=== PATIENT | male | born 1975 | race Caucasian/White ===

== ENCOUNTER 2023-06-06 07:56 | Outpatient (OUT) | payer BC, SELFPAY ==
[2023-06-06 08:16] LABS: Basophils Absolute Auto 0.1 10^3/uL (0.0-0.1); Basophils Percent Auto 0.7 % (0.2-2.0); Eosinophils Absolute Auto 0.1 10^3/uL (0.0-0.7); Eosinophils Percent Auto 1.2 % (0.9-7.0); Hemoglobin 14.3 g/dL (14.0-18.0); Immature Granulocytes Abs Auto 0.08 10^3/uL (0.00-0.03); Immature Granulocytes Pct Auto 0.7 % (0.0-0.5); Lymphocytes Absolute Auto 2.5 10^3/uL (1.2-3.8); Lymphocytes Percent Auto 20.8 % (20.5-60.0); Mean Corpuscular Hemoglobin 32.4 pg (25.9-34.0); Mean Platelet Volume 9.2 fL (9.5-13.5); Monocytes Absolute Auto 1.1 10^3/uL (0.3-0.8); Monocytes Percent Auto 9.1 % (1.7-12.0); Neutrophils Absolute Auto 8.2 10^3/uL (1.4-6.5); Neutrophils Percent Auto 67.5 % (43.0-75.0); Platelet Count 252 10^3/uL (150-450); Red Blood Count 4.42 10^6/uL (4.70-6.10); Red Cell Distribution Width 13.4 % (11.0-15.0); White Blood Count 12.1 10^3/uL (4.0-11.0)
[2023-06-06 08:57] LABS: Estimated Average Glucose 123 mg/dL; Glycohemoglobin A1C 5.9 % (4.5-6.2)
[2023-06-06 09:00] LABS: Amphetamine Screen Urine NEGATIVE (NEGATIVE); Barbiturates Screen Urine NEGATIVE (NEGATIVE); Benzodiazepines Screen Urine NEGATIVE (NEGATIVE); Buprenorphine Screen Urine NEGATIVE (NEGATIVE); Cannabinoid Screen Urine NEGATIVE (NEGATIVE); Cocaine Screen Urine NEGATIVE (NEGATIVE); Methadone Screen Urine NEGATIVE (NEGATIVE); Methamphetamines Screen Urine NEGATIVE (NEGATIVE); Opiate Screen Urine POSITIVE (NEGATIVE); Oxycodone Screen Urine NEGATIVE (NEGATIVE); Phencyclidine Screen Urine NEGATIVE (NEGATIVE); Tricyclic Antidepressant Urine NEGATIVE (NEGATIVE)
[2023-06-06 09:39] LABS: Prostate Specific Antigen Scrn 0.77 ng/mL (<=4.00)
[2023-06-06 09:46] LABS: Alanine Aminotransferase 71 U/L (16-63); Albumin Globulin Ratio 1.2; Albumin Level 3.6 g/dL (3.4-5.0); Alkaline Phosphatase 78 U/L (46-116); Aspartate Amino Transferase 36 U/L (15-37); BUN Creatinine Ratio 12.9; Bilirubin Total 1.3 mg/dL (0.2-1.0); Calcium 8.3 mg/dL (8.5-10.1); Carbon Dioxide 29.5 mmol/L (21.0-32.0); Chloride 102 mmol/L (98-107); Chol HDL Ratio 3.1; Cholesterol 122 mg/dL (<=200); Estimated GFR (African America >60 (>=60); Estimated GFR (Non-African Ame >60 (>=60); Free T3 3.53 pg/mL (2.18-3.98); Globulin 2.9 g/dL; Glucose 136 mg/dL (74-106); HDL Cholesterol 39 mg/dL (40-60); Potassium 3.5 mmol/L (3.5-5.1); Sodium 137 mmol/L (136-145); Thyroid Stimulating Hormone 1.994 uIU/mL (0.358-3.740); Total Protein 6.5 g/dL (6.4-8.2); Triglycerides 181 mg/dL (<=150); Uric Acid 5.6 mg/dL (3.5-7.2); VLDL CHOLESTEROL 36.2 mg/dL
[2023-06-13 17:08] LABS: Summary Report (Summary) FINAL (.)
== END 2023-06-06 07:57 | disposition home or self-care (01) ==
LOC: LAB 07:57
PROVIDERS: PCP Family Medicine; Visit Provider Family Medicine
DX: Z00.00 Encounter for general adult medical examination without abnormal findings (principal); E78.5 Hyperlipidemia, unspecified; R73.09 Other abnormal glucose; Z12.5 Encounter for screening for malignant neoplasm of prostate; Z12.12 Encounter for screening for malignant neoplasm of rectum; Z79.899 Other long term (current) drug therapy
CPT/HCPCS: 36415; 80053; 80061; 80307; 80326; 80331; 80334; 80337; 80338; 80341; 80344; 80346; 80348; 80353; 80354; 80355; 80357; 80358; 80359; 80360; 80361; 80364; 80365; 80366; 80367; 80368; 80370; 80371; 80372; 80373; 80377; 82570; 83036; 83525; 83992; 84436; 84443; 84481; 84550; 85025; G0103; G0328

== ENCOUNTER 2023-06-06 10:00 | Outpatient (REF) | payer BC, SELFPAY ==
[2023-06-07 13:51] LABS: Occult Blood Negative
== END 2023-06-06 10:01 | disposition home or self-care (01) ==
LOC: LAB 10:00
PROVIDERS: PCP Family Medicine; Visit Provider Family Medicine
DX: Z12.12 Encounter for screening for malignant neoplasm of rectum (principal)
CPT/HCPCS: G0328

== ENCOUNTER 2024-03-03 09:16 | Outpatient (OUT) | payer BC, SELFPAY ==
--- NOTE | 2024-03-03 | NM_ITS ---
Patient Name: LUPILLO GARCIA MR#: [id number] : 1975 Exam Date: 03/03/2024 Ordering Doctor: DR Terrell Pineda . RADIOLOGY REPORT PROCEDURE: NM KIA PERF SPECT REST STR COMPARISON: None. INDICATIONS: CHEST PAIN TECHNIQUE: Exam Description: Stress/Rest one day protocol gated SPECT Rest Imagin.5 mCi Tc-99m Cardiolite IV on 03/03/2024 Stress Imaging 30.8 mCi Tc-99m Cardiolite IV on 03/03/2024 Exercise Protocol: Brad Heart Rate (bpm): Rest: 73 Max: 146 PMHR: 85 Blood Pressure: Rest: 140/72 Max: 158/80 Exercise Time: Minutes: 6 Seconds: 14 Stage Reached: Stage: 2 Mets 7.0 Symptoms: Rest and peak stress ECG findings were pending and the exercise portion of the study was pending per attending physician Dr. PFEIFFER . For more details please see separate cardiac stress test report. FINDINGS: QUALITY OF STUDY: Good. PERFUSION DEFECT: None. LOCATION: N/A SIZE: N/A. SEVERITY: N/A. TYPE: N/A. WALL MOTION: Normal. LV SIZE: Enlarged; EDV 126 mL. TID / TCD: None; 1.1 LVEF: Abnormal. Calculated EF 51%. SUMMARY: Myocardial perfusion imaging study has ABNORMAL findings. CONCLUSION: 1. No reversible ischemia identified 2. Borderline dilatation of the left ventricle, EDV 126 milliliters 3. Left ventricular ejection fraction is low at 51% 4. Pending exercise test results Dictated by: Bryan Lew MD on 03/03/2024 at 12:52 Approved by: Bryan Lew MD on 03/03/2024 at 12:53
--- NOTE | 2024-03-03 10:41 | PC.NURSE ---
Nursing Note Cardiac Stress Test Reviewed: Medication, allergies and patient history reviewed. Stress Test: [ x] Patient tolerated stress test well. [ ] Patient unable to tolerate walking on treadmill. Switched to Lexiscan stress test. [ x] No chest pain noted per patient [ ] Chest pain that resolved prior to leaving stress lab. [ ] No dyspnea noted. [ x] Dyspnea that resolved prior to leaving stress lab. [ x Patient left stress lab asymptomatic and hemodynamically stable. [ ] Patient taken to the Emergency Room due to non-resolving symptoms following stress test. [ x] Patient achieved target heart rate. [ ] Patient unable to achieve target heart rate. [ ] Aminophylline administered as reversal agent to Lexiscan (Regadenoson). [ ] Nitro administered. Nursing Comments:
== END 2024-03-03 09:17 | disposition home or self-care (01) ==
LOC: NM 09:16
PROVIDERS: PCP Family Medicine; Visit Provider Family Medicine
DX: R07.9 Chest pain, unspecified (principal)
CPT/HCPCS: 78452; 93017; A9500

== ENCOUNTER 2024-03-23 08:45 | Outpatient (OUT) | payer BC, SELFPAY ==
[2024-03-23 08:53] LABS: Hemoglobin 14.6 g/dL (14.0-18.0)
--- NOTE | 2024-03-23 09:00 | RT_ITS ---
The Test Date: 2024-03-23 Pat Name: Joss Wang Department: Room: - Gender: Male Pillow Cleaner: Steffi Alcaraz RRT : 1975 Requested By: ARLYN WARD Order Number: [id number] Reading MD: Gerardo Ho Interpretive Statements Pulmonary function testing was completed according to ATS criteria. Findings were considered accurate and reproducible. No bronchodilator was administered due to normal spirometric values. Prior PFTs are unable to be reviewed due to software limitations. -FEV1/FVC: Normal @ 83% -FEV1: Normal @ 103% -FVC: Normal @ 97% Lung volumes by plethysmography: -RV: Reduced @ 48% -TLC: Normal @ 89% Diffusion capacity: -DLCO: Normal @ 84% when corrected for Hb 14.6g/dL Impressions: -Normal spirometry and diffusion capacity. Reduced RV and normal TLC can be seen in an obesity pattern. If asthma remains in the differential, may consider methacholine challenge testing. Clinical correlation required. Electronically Signed On 03-25-2024 16:41:06 EDT by Gerardo Ho
== END 2024-03-23 08:46 | disposition home or self-care (01) ==
LOC: CARD 08:45
PROVIDERS: PCP Family Medicine; Visit Provider Family Medicine
DX: R06.02 Shortness of breath (principal); R06.09 Other forms of dyspnea
CPT/HCPCS: 36415; 85018; 94010; 94726; 94729

== ENCOUNTER 2024-03-24 15:55 | Outpatient (OUT) | payer BC, SELFPAY ==
--- NOTE | 2024-03-24 15:57 | XR_ITS ---
The [address] [address] Patient Name: LUPILLO GARCIA MRN: [id number] date: 1975 Sex: M Assigned Patient Location: [facility] Current Patient Location: Accession/Order Number: [id number] Exam Date: 03/24/2024 16:03 Report Date: 03/26/2024 05:10 At the request of: ARLYN WARD Procedure: XR chest 2V EXAMINATION: XR chest 2V HISTORY: Chest Pain, Dyspnea COMPARISON: XR chest 01/16/2022 FINDINGS: LUNGS: No significant pulmonary parenchymal abnormalities. VASCULATURE: No increased pulmonary vasculature. PLEURA: No pneumothorax, effusion, or pleural thickening. CARDIAC: No cardiomegaly or cardiac silhouette abnormality. MEDIASTINUM: No visible mass or adenopathy. BONES: No fracture or visible bone lesion. OTHER: Negative. XR/XR chest 2V IMPRESSION: 1. No acute cardiopulmonary process or significant chronic changes. Stable chest. Electronically authenticated by: CHAU MURRELL Date: 03/26/2024 05:10
== END 2024-03-24 15:56 | disposition home or self-care (01) ==
LOC: RAD 15:55
PROVIDERS: PCP Family Medicine; Visit Provider Family Medicine
DX: R07.9 Chest pain, unspecified (principal); R06.00 Dyspnea, unspecified
CPT/HCPCS: 71046

== ENCOUNTER 2024-05-11 09:04 | Outpatient (OUT) | payer BC, SELFPAY ==
[2024-05-11 09:26] LABS: Basophils Absolute Auto 0.1 10^3/uL (0.0-0.1); Basophils Percent Auto 1.5 % (0.2-2.0); Eosinophils Absolute Auto 0.2 10^3/uL (0.0-0.7); Eosinophils Percent Auto 3.6 % (0.9-7.0); Hematocrit 40.6 % (42.0-54.0); Hemoglobin 13.9 g/dL (14.0-18.0); Immature Granulocytes Abs Auto 0.03 10^3/uL (0.00-0.03); Immature Granulocytes Pct Auto 0.4 % (0.0-0.5); Lymphocytes Absolute Auto 1.7 10^3/uL (1.2-3.8); Lymphocytes Percent Auto 25.4 % (20.5-60.0); Mean Corpuscular HGB Conc 34.2 g/dL (29.9-35.2); Mean Corpuscular Hemoglobin 32.3 pg (25.9-34.0); Mean Corpuscular Volume 94.2 fL (80.0-94.0); Mean Platelet Volume 9.8 fL (9.5-13.5); Monocytes Absolute Auto 0.8 10^3/uL (0.3-0.8); Monocytes Percent Auto 11.4 % (1.7-12.0); Neutrophils Absolute Auto 3.9 10^3/uL (1.4-6.5); Neutrophils Percent Auto 57.7 % (43.0-75.0); Platelet Count 249 10^3/uL (150-450); Red Blood Count 4.31 10^6/uL (4.70-6.10); Red Cell Distribution Width 12.4 % (11.0-15.0); White Blood Count 6.7 10^3/uL (4.0-11.0)
[2024-05-11 09:39] LABS: Estimated Average Glucose 123 mg/dL; Glycohemoglobin A1C 5.9 % (4.5-6.2)
[2024-05-11 10:44] LABS: Alanine Aminotransferase 72 U/L (16-63); Albumin Globulin Ratio 1.2; Albumin Level 3.4 g/dL (3.4-5.0); Alkaline Phosphatase 83 U/L (46-116); Aspartate Amino Transferase 32 U/L (15-37); BUN Creatinine Ratio 17.3; Bilirubin Total 0.7 mg/dL (0.2-1.0); Chloride 104 mmol/L (98-107); Chol HDL Ratio 3.2; Cholesterol 114 mg/dL (<=200); Estimated GFR (African America >60 (>=60); Estimated GFR (Non-African Ame >60 (>=60); Free T3 3.19 pg/mL (2.18-3.98); Globulin 2.9 g/dL; Glucose 136 mg/dL (74-106); HDL Cholesterol 36 mg/dL (40-60); Potassium 4.4 mmol/L (3.5-5.1); Sodium 139 mmol/L (136-145); Thyroid Stimulating Hormone 2.082 uIU/mL (0.358-3.740); Total Protein 6.3 g/dL (6.4-8.2); Triglycerides 135 mg/dL (<=150)
[2024-05-11 10:55] LABS: Anion Gap 12.3; Carbon Dioxide 27.1 mmol/L (21.0-32.0); Prostate Specific Antigen Scrn 0.68 ng/mL (<=4.00)
[2024-05-12 10:10] LABS: Insulin 42.4 uIU/mL (2.6-24.9)
== END 2024-05-11 09:05 | disposition home or self-care (01) ==
LOC: LAB 09:04
PROVIDERS: PCP Family Medicine; Visit Provider Family Medicine
DX: Z00.00 Encounter for general adult medical examination without abnormal findings (principal)
CPT/HCPCS: 36415; 80053; 80061; 83036; 83525; 84436; 84443; 84481; 85025; G0103; G0328

== ENCOUNTER 2024-05-12 17:03 | Outpatient (REF) | payer BC, SELFPAY ==
--- OUTSIDE RECORDS SUMMARY | 2024-05-12 17:14 | XMS_ITS | CCD ---
Author Organization [facility] Care Team Providers Care Manager Helpdesk Name Role Phone UNKNOWN, PROVIDER Admitting Unavailable HOY, ARLYN Referring Unavailable HOY, ARLYN Primary Care Unavailable UNKNOWN, PROVIDER Attending Unavailable Unavailable Primary Care Provider Unavailabl e HOY ., DR STODDARD Attending Unavailable HOY ., DR STODDARD Consulting Unavailable HOY ., DR STODDARD Primary Care Unavailable HOY ., DR STODDARD Admitting Unavailable HOY ., DR STODDARD Attending Unavailable HOY ., DR STODDARD Consulting Unavailable HOY ., DR STODDARD Primary Care Unavailable HOY ., DR STODDARD Admitting Unavailable HOY ., DR STODDARD Admitting Unavailable HOY ., DR STODDARD Attending Unavailable HOY ., DR STODDARD Consulting Unavailable HOY ., DR STODDARD Primary Care Unavailable HOY ., DR STODDARD Attending Unavailable HOY ., DR STODDARD Consulting Unavailable HOY ., DR STODDARD Primary Care Unavailable HOY ., DR STODDARD Admitting Unavailable HOY ., DR STODDARD Attending Unavailable HOY ., DR STODDARD Primary Care Unavailable HOY ., DR STODDARD Admitting Unavailable HOY ., DR STODDARD Consulting Unavailable HOY ., DR STODDARD Attending Unavailable HOY ., DR STODDARD Primary Care Unavailable HOY ., DR STODDARD Admitting Unavailable HOY ., DR STODDARD Consulting Unavailable HOY ., DR STODDARD Attending Unavailable HOY ., DR STODDARD Primary Care Unavailable HOY ., DR STODDARD Admitting Unavailable HOY ., DR STODDARD Consulting Unavailable HARDWICK, DR BUTCH [employer] Consulting Unavailable Allergies Allergy Classification Reported Allergen(s) Allergy Type Date of Onset Reaction(s) Facility Acetaminophen / oxyCODONE (1 source) Acetaminophen / oxyCODONE Drug Allergy 1 [facility] Repository Latex (1 source) Latex Substance Allergy 1 [facility] NSAIDs (1 source) Ketorolac Drug Allergy 1 [facility] Opioid Agonists (1 source) traMADol Drug Allergy 1 [facility] (4 sources) Acetaminophen / oxyCODONE; Translations: [Percocet] Drug Allergy 2 [facility] (3 sources) Latex Propensity to adverse reactions to drug 2 [facility] Work Phone: (3 sources) nickel sulfate Drug Allergy 2 [facility] (3 sources) traMADol Drug Allergy 2 [facility] (1 source) Ketorolac Drug Allergy 6 [facility] (1 source) Latex Drug allergy (disorder) 6 [facility] (1 source) Leucine Drug Allergy 6 [facility] (1 source) methylparaben Drug Allergy 6 [facility] Medications Current Medications Medication Drug Class(es) Dates Sig (Normalized) Sig (Original) acetaminophen 300 mg / codeine phosphate 30 mg oral tablet (3 sources) Opioid Agonist Start: 08-27-2013 take 1 tablet by mouth every four hours as needed for pain acetaminophen-cod eine (TYLENOL/CODEINE #3) 300-30 MG per tablet Indications: Kienb ck's disease of adults , Arthritis , Right arm pain Take 1 Tab by mouth every 4 hours as needed for Pain. 40 Tab 1 08/27/2013 Active amLODIPine 10 mg oral tablet (3 sources) Dihydropyridine Calcium Channel Jailyn Start: 01-14-2012 take 1 tablet by mouth once daily amLODIPine (NORVASC) 10 MG tablet Indications: Arthritis , Right arm pain Take 1 Tab by mouth daily. 30 Tab 3 01/14/2012 Active cetirizine hydrochloride 10 mg oral tablet (3 sources) Histamine-1 Receptor Antagonist Start: 01-14-2012 take 1 tablet by mouth once daily cetirizine (ZYRTEC) 10 MG tablet Indications: Arthritis , Right arm pain Take 1 Tab by mouth daily. 30 Tab 3 01/14/2012 Active esomeprazole 40 mg delayed release oral capsule (3 sources) Proton Pump Inhibitor Start: 01-14-2012 take 1 capsule by mouth once daily 30 minutes before breakfast esomeprazole (NEXIUM) 40 MG capsule Indications: Arthritis , Right arm pain Take 1 Cap by mouth daily (30 minutes before breakfast). 60 Cap 2 01/14/2012 Active hydrOXYzine pamoate 50 mg oral capsule (3 sources) Antihistamine Start: 06-01-2013 take 1 capsule by mouth three times daily as needed hydrOXYzine (VISTARIL) 50 MG capsule Indications: Kienb ck's disease of adults Take 1 Cap by mouth 3 times daily as needed for Itching. 90 Cap 3 06/01/2013 Active ibuprofen 800 mg oral tablet (3 sources) Nonsteroidal Anti-inflammatory Drug Start: 01-14-2012 take 1 tablet by mouth every eight hours as needed for pain ibuprofen (MOTRIN) 800 MG tablet Indications: Arthritis , Right arm pain Take 1 Tab by mouth every 8 hours as needed for Pain. 60 Tab 2 01/14/2012 Active Problems Active Problems Problem Classification Problem Date Documented Date Episodic/Chronic Congestive heart failure; nonhypertensive (1 source) Unspecified diastolic (congestive) heart failure; Translations: [UNSPECIFIED DIASTOLIC HEART FAILURE] Onset: 01-02-2023 Chronic Coronary atherosclerosis and other heart disease (4 sources) Atherosclerotic heart disease of [place] coronary artery without angina pectoris; Translations: [ASHD [place] CA W/O ANGINA PECTORIS] Onset: 12-27-2022 Chronic Deficiency and other anemia (1 source) Anemia, unspecified; Translations: [ANEMIA UNSPECIFIED] Onset: 01-02-2023 Episodic Diabetes mellitus without complication (1 source) Other abnormal glucose; Translations: [OTHER ABNORMAL GLUCOSE] Onset: 01-02-2023 Episodic Gout and other crystal arthropathies (1 source) Gout, unspecified; Translations: [GOUT UNSPECIFIED] Onset: 01-02-2023 Chronic Hypertension with complications and secondary hypertension (1 source) Hypertensive heart disease with heart failure; Translations: [HTN HEART DISEASE W/HEART FAIL] Onset: 01-02-2023 Chronic Nutritional deficiencies (1 source) Vitamin D deficiency, unspecified; Translations: [VITAMIN D DEFICIENCY UNSPECIFIED] Onset: 01-02-2023 Chronic Osteoarthritis (3 sources) Arthritis; Translations: [Unspecified osteoarthritis, unspecified site] Onset: 09-10-2012 09-10-2012 Chronic Other bone disease and musculoskeletal deformities (3 sources) Progressive avascular necrosis of lunate; 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] Onset: 04-14-2012 04-14-2012 Chronic Other lower respiratory disease (1 source) Dyspnea, unspecified; Translations: [DYSPNEA UNSPECIFIED] Onset: 01-02-2023 Episodic Unclassified (1 source) COUGH, UNSPECIFIED; Translations: [COUGH, UNSPECIFIED] Onset: 01-18-2022 Past or Other Problems Problem Classification Problem Date Documented Da te Episodic/Chronic Nonspecific chest pain (4 sources) Chest pain, unspecified; Translations: [CHEST PAIN UNSPECIFIED] Onset: 03-06-2022 Episodic Other connective tissue disease (3 sources) Pain in right arm; Translations: [Pain in right arm] Onset: 09-10-2012 09-10-2012 Episodic Other gastrointestinal disorders (4 sources) Abdominal distension (gaseous); Translations: [ABDOMINAL DISTENSION GASEOUS] Onset: 03-14-2022 Episodic Other injuries and conditions due to external causes (1 source) Other injury of unspecified body region, initial encounter; Translations: [OTHER INJURY UNS BODY REGION INIT] Onset: 03-14-2022 Episodic Other lower respiratory disease (4 sources) Shortness of breath; Translations: [SHORTNESS OF BREATH] Onset: 02-08-2022 Episodic Other non-traumatic joint disorders (3 sources) Pain of left wrist; Translations: [Pain in left wrist] Onset: 10-02-2013 10-02-2013 Episodic Other screening for suspected conditions (not mental disorders or infectious disease) (5 sources) Encounter for screening for malignant neoplasm of prostate; Translations: [Other specified abnormal findings of blood chemistry] Onset: 03-13-2022 Episodic Results Test Name Value Interpretation Reference Range Facility INSULINon 12-28-2022 Insulin 45.9 uIU/mL Critically high 2.6-24.9 [facility] Comment on above: Performed By: #### I NSULIN #### [facility] [address] [address] [address] Destinee Billingsley BNPon 12-27-2022 Natriuretic peptide B (Bld) [Mass/Vol] 158.0 pg/mL Normal <=900.0 [facility] Comment on above: Performed By: #### C MP, BNP #### [facility] [address] [address] [address] Destinee Billingsley CBC AUTO DIFFon 12-27-2022 BASO # 0.1 103/ul Normal 0.0-0.1 [facility] Comment on above: Performed By: #### C BC #### [facility] [address] [address] [address] Destinee Billingsley Basophils/100 WBC (Bld) 1.3 % Normal 0.2-2.0 [facility] Comment on above: Performed By: #### C BC #### [facility] [address] [place] [address] Dr. Destinee Billingsley EO # 0.2 103/ul Normal 0.0-0.7 [facility] Comment on above: Performed By: #### C BC #### [facility] [address] [place] [address] Dr. Destinee Billingsley Eosinophils/100 WBC (Bld) 3.1 % Normal 0.9-7.0 [facility] Comment on above: Performed By: #### C BC #### [facility] [address] [place] [address] Dr. Destinee Billingsley Erythrocyte distribution width (RBC) [Ratio] 12.8 % Normal 11.0-15.0 [facility] Comment on above: Performed By: #### C BC #### [facility] [address] [place] [address] Dr. Destniee Billingsley Hematocrit (Bld) [Volume fraction] 40.7 % Critically low 42.0-54.0 [facility] Comment on above: Performed By: #### C BC #### [facility] [address] [place] [address] Dr. Destinee Billingsley Hemoglobin (Bld) [Mass/Vol] 14.3 g/dL Normal 14.0-18.0 [facility] Comment on above: Performed By: #### C BC #### [facility] [address] [place] [address] Dr. Destinee Billingsley IG # 0.04 10e3/ul Critically high 0.00-0.03 [facility] Comment on above: Performed By: #### C BC #### [facility] [address] [place] [address] Dr. Destinee Billingsley IG % 0.5 % Normal 0.0-0.5 [facility] Comment on above: Performed By: #### C BC #### [facility] [address] [place] [address] Dr. Destinee Billingsley LYMPH # 1.7 103/ul Normal 1.2-3.8 [facility] Comment on above: Performed By: #### C BC #### [facility] [address] [place] [address] Dr. Destinee Billingsley Lymphocytes/100 WBC (Bld) 22.3 % Normal 20.5-60.0 [facility] Comment on above: Performed By: #### C BC #### [facility] [address] [place] [address] Dr. Destinee Billingsley MANUAL DIFF REQ NO Normal [facility] Comment on above: Performed By: #### C BC #### [facility] [address] [place] [address] Dr. Destinee Billingsley MCH (RBC) [Entitic mass] 32.6 pg Normal 25.9-34.0 [facility] Comment on above: Performed By: #### C BC #### [facility] [address] [place] [address] Dr. Destinee Billingsley MCHC (RBC) [Mass/Vol] 35.1 g/dL Normal 29.9-35.2 [facility] Comment on above: Performed By: #### C BC #### [facility] [address] [place] [address] Dr. Destinee Billingsley MCV (RBC) [Entitic vol] 92.9 fL Normal 80.0-94.0 [facility] Comment on above: Performed By: #### C BC #### [facility] [address] [place] [address] Dr. Destinee Billingsley MONO # 0.9 103/ul Critically high 0.3-0.8 [facility] Comment on above: Performed By: #### C BC #### [facility] [address] [place] [address] Dr. Destinee Billingsley Monocytes/100 WBC (Bld) 11.1 % Normal 1.7-12.0 [facility] Comment on above: Performed By: #### C BC #### [facility] [address] [place] [address] Dr. Destinee Billingsley NEUT # 4.7 103/ul Normal 1.4-6.5 [facility] Comment on above: Performed By: #### C BC #### [facility] [address] [place] [address] Dr. Destinee Billingsley Neutrophils/100 WBC (Bld) 61.7 % Normal 43.0-75.0 [facility] Comment on above: Performed By: #### C BC #### [facility] [address] [place] [address] Dr. Destinee Billingsley Platelet mean volume (Bld) [Entitic vol] 9.7 fL Normal 9.5-13.5 [facility] Comment on above: Performed By: #### C BC #### [facility] [address] [place] [address] Dr. Destinee Billingsley PLT 259 103/ul Normal 150-450 [facility] Comment on above: Performed By: #### C BC #### [facility] [address] [place] [address] Dr. Destinee Billingsley RBC 4.38 106/ul Critically low 4.70-6.10 [facility] Comment on above: Performed By: #### C BC #### [facility] [address] [place] [address] Dr. Destinee Billingsley WBC 7.7 103/ul Normal 4.0-11.0 [facility] Comment on above: Performed By: #### C BC #### [facility] [address] [place] [address] Dr. Destinee Billingsley FREE THYROXINE INDEX T7on FTI 2.40 Normal 1.30-4.50 [facility] Comment on above: Performed By: #### C MP, BNP #### [facility] [address] [place] [address] Dr. Destinee Billingsley T3U 32.0 % Critically low 33.0-40.0 [facility] Comment on above: Performed By: #### C MP, BNP #### [facility] [address] [place] [address] Dr. Destinee Billingsley T4 [Mass/Vol] 7.50 ug/dL Normal 4.50-12.10 [facility] Comment on above: Performed By: #### C MP, BNP #### [facility] [address] [place] [address] Dr. Destinee Billingsley GLYCOHEMOGLOBIN A1Con 2022 ADA RECOMMENDATION SEE BELOW Normal [facility] Comment on above: Result Comment: ADA RECOMMENDED LIMIT 4.0 - 6.0 ADA THERAPEUTIC TARGET < 7.0 ACTION SUGGESTED > 7.0 Performed By: #### A 1C #### [facility] [address] [place] [address] Dr. Destinee Billingsley Glucose [Mass/Vol] 148 mg/dL Critically high 74-106 T [facility] Comment on above: Performed By: #### A 1C #### [facility] [address] [place] [address] Dr. Destinee Billingsley Performed By: #### C MP, BNP #### [facility] [address] [place] [address] Dr. Destinee Billingsley HbA1c (Bld) [Mass fraction] 6.8 % Critically high 4.5-6.2 [facility] Comment on above: Performed By: #### A 1C #### [facility] [address] [place] [address] Dr. Destinee Billingsley IRONon 12-27-2022 Iron [Mass/Vol] 90.0 ug/dL Normal 65.0-175.0 [facility] Comment on above: Performed By: #### I NICOLA CARTER #### [facility] [address] [place] [address] Dr. Destinee Billingsley MAGNESIUMon 12-27-2022 Magnesium [Mass/Vol] 1.5 mg/dL Critically low 1.8-2.4 [facility] Comment on above: Performed By: #### C MP, BNP #### [facility] [address] [place] [address] Dr. Destinee Billingsley PROF 14(COMP METB)on 023 Albumin [Mass/Vol] 3.4 g/dL Normal 3.4-5.0 [facility] Comment on above: Performed By: #### C MP, BNP #### [facility] [address] [place] [address] Dr. Destinee Billingsley Albumin/Globulin [Mass ratio] 1.0 {ratio} Normal [facility] Comment on above: Performed By: #### C MP, BNP #### [facility] [address] [place] [address] Dr. Destinee Billingsley ALP [Catalytic activity/Vol] 86 U/L Normal 46-116 [facility] Comment on above: Performed By: #### C MP, BNP #### [facility] [address] [place] [address] Dr. Destinee Billingsley ALT [Catalytic activity/Vol] 61 U/L Normal 16-63 [facility] Comment on above: Performed By: #### C MP, BNP #### [facility] [address] [place] [address] Dr. Destinee Billingsley Anion gap [Moles/Vol] 13.5 mmol/L Normal [facility] Comment on above: Performed By: #### C MP, BNP #### [facility] [address] [place] [address] Dr. Destinee Billingsley AST [Catalytic activity/Vol] 41 U/L Critically high 15-37 [facility] Comment on above: Performed By: #### C MP, BNP #### [facility] [address] [place] [address] Dr. Destinee Billingsley Bilirubin [Mass/Vol] 0.6 mg/dL Normal 0.2-1.0 [facility] Comment on above: Performed By: #### C MP, BNP #### [facility] [address] [place] [address] Dr. Destinee Billingsley Calcium [Mass/Vol] 8.9 mg/dL Normal 8.5-10.1 [facility] Comment on above: Performed By: #### C MP, BNP #### [facility] [address] [place] [address] Dr. Destinee Billingsley Chloride [Moles/Vol] 104 mmol/L Normal 98-107 [facility] Comment on above: Performed By: #### C MP, BNP #### [facility] [address] [address] [address] Destinee Billingsley CO2 [Moles/Vol] 24.6 mmol/L Normal 21.0-32.0 [facility] Comment on above: Performed By: #### C MP, BNP #### [facility] [address] [place] [address] Dr. Destinee Billingsley Creatinine [Mass/Vol] 0.76 mg/dL Normal 0.70-1.30 [facility] Comment on above: Performed By: #### C MP, BNP #### [facility] [address] [place] [address] Dr. Destinee Billingsley EGFR-AF ENGLISH >60 Normal >=60 [facility] Comment on above: Performed By: #### C MP, BNP #### [facility] [address] [place] [address] Dr. Destinee Billingsley EGFR-NON AF ENGLISH >60 Normal >=60 [facility] Comment on above: Performed By: #### C MP, BNP #### [facility] [address] [place] [address] Dr. Destinee Billingsley Globulin (S) [Mass/Vol] 3.4 g/dL Normal [facility] Comment on above: Performed By: #### C MP, BNP #### [facility] [address] [place] [address] Dr. Destinee Billingsley Potassium [Moles/Vol] 4.1 mmol/L Normal 3.5-5.1 [facility] Comment on above: Performed By: #### C MP, BNP #### [facility] [address] [place] [address] Dr. Destinee Billingsley Protein [Mass/Vol] 6.8 g/dL Normal 6.4-8.2 [facility] Comment on above: Performed By: #### C MP, BNP #### [facility] [address] [place] [address] Dr. Destinee Billingsley Sodium [Moles/Vol] 138 mmol/L Normal 136-145 [facility] Comment on above: Performed By: #### C MP, BNP #### [facility] [address] [place] [address] Dr. Destinee Billingsley Urea nitrogen [Mass/Vol] 13.0 mg/dL Normal 7.0-18.0 [facility] Comment on above: Performed By: #### C MP, BNP #### [facility] [address] [place] [address] Dr. Destinee Billingsley Urea nitrogen/Creatinin e [Mass ratio] 17.1 mg/mg Normal [facility] Comment on above: Performed By: #### C JOAN, BNP #### [facility] [address] [place] [address] Dr. Destinee Billingsley TSHon 12-27-2022 TSH 1.711 uIU/mL Normal 0.358-3.740 [facility] Comment on above: Performed By: #### C JOAN, BNP #### [facility] [address] [place] [address] Dr. Destinee Billingsley VITAMIN D 25 OHon 12-27-2022 VIT D 25-OH 69.9 ng/mL Normal [facility] Comment on above: Performed By: #### I EMMA VITAD #### [facility] [address] [place] [address] Dr. Destinee Billingsley VIT D RANGES SEE BELOW Normal [facility] Comment on above: Result Comment: <20 ng/mL Vit D deficient 20 - <30 ng/mL Vit D insufficient 30 - 100 ng/mL Vit D sufficient >100 ng/mL Potential Toxicity Performed By: #### I EMMA VITAD #### [facility] [address] [place] [address] Dr. Destinee Billingsley INSULINon 05-05-2022 Insulin 46.3 uIU/mL Critically high 2.6-24.9 [facility] Comment on above: Performed By: #### C JOAN, BNP #### [facility] [address] [place] [address] Dr. Destinee Billingsley TESTOSTERONE, TOTALon 2021 Testosterone [Mass/Vol] 782 ng/dL Normal 264-916 [facility] Comment on above: Result Comment: Adul t male reference interval is based on a population of healthy nonobese males (BMI <30) between 19 and 39 years old. Porfirio et.al. JCEM 2017,102;[id number]. PMID: [id number]. Performed By: #### C MP, BNP #### [facility] [address] [place] [address] Dr. Destinee Billingsley CBC AUTO DIFFon 05-04-2022 BASO # 0.1 103/ul Normal 0.0-0.1 [facility] Comment on above: Performed By: #### C BC #### [facility] [address] [place] [address] Dr. Destinee Billingsley Basophils/100 WBC (Bld) 1.9 % Normal 0.2-2.0 [facility] Comment on above: Performed By: #### C BC #### [facility] [address] [place] [address] Dr. Destinee Billingsley EO # 0.2 103/ul Normal 0.0-0.7 [facility] Comment on above: Performed By: #### C BC #### [facility] [address] [place] [address] Dr. Destinee Billingsley Eosinophils/100 WBC (Bld) 3.3 % Normal 0.9-7.0 [facility] Comment on above: Performed By: #### C BC #### [facility] [address] [place] [address] Dr. Destinee Billingsley Erythrocyte distribution width (RBC) [Ratio] 12.2 % Normal 11.0-15.0 [facility] Comment on above: Performed By: #### C BC #### [facility] [address] [place] [address] Dr. Destinee Billingsley Hematocrit (Bld) [Volume fraction] 42.8 % Normal 42.0-54.0 [facility] Comment on above: Performed By: #### C BC #### [facility] [address] [place] [address] Dr. Destinee Billingsley Hemoglobin (Bld) [Mass/Vol] 14.6 g/dL Normal 14.0-18.0 [facility] Comment on above: Performed By: #### C BC #### [facility] [address] [place] [address] Dr. Destinee Billingsley IG # 0.02 10e3/ul Normal 0.00-0.03 [facility] Comment on above: Performed By: #### C BC #### [facility] [address] [place] [address] Dr. Destinee Billingsley IG % 0.3 % Normal 0.0-0.5 [facility] Comment on above: Performed By: #### C BC #### [facility] [address] [place] [address] Dr. Destinee Billingsley LYMPH # 1.7 103/ul Normal 1.2-3.8 [facility] Comment on above: Performed By: #### C BC #### [facility] [address] [place] [address] Dr. Destinee Billingsley Lymphocytes/100 WBC (Bld) 26.4 % Normal 20.5-60.0 [facility] Comment on above: Performed By: #### C BC #### [facility] [facility] [address] [place] [address] Dr. Destinee Billingsley MANUAL DIFF REQ NO Normal [facility] Comment on above: Performed By: #### C BC #### [facility] [address] [place] [address] Dr. Destinee Billingsley MCH (RBC) [Entitic mass] 32.4 pg Normal 25.9-34.0 [facility] Comment on above: Performed By: #### C BC #### [facility] [address] [place] [address] Dr. Destinee Billingsley MCHC (RBC) [Mass/Vol] 34.1 g/dL Normal 29.9-35.2 [facility] Comment on above: Performed By: #### C BC #### [facility] [address] [place] [address] Dr. Destinee Billingsley MCV (RBC) [Entitic vol] 94.9 fL Critically high 80.0-94.0 [facility] Comment on above: Performed By: #### C BC #### [facility] [address] [place] [address] Dr. Destinee Billingsley MONO # 0.7 103/ul Normal 0.3-0.8 [facility] Comment on above: Performed By: #### C BC #### [facility] [address] [address] [address] Destinee Billingsley Monocytes/100 WBC (Bld) 10.4 % Normal 1.7-12.0 [facility] Comment on above: Performed By: #### C BC #### [facility] [address] [place] [address] Dr. Destinee Billingsley NEUT # 3.6 103/ul Normal 1.4-6.5 [facility] Comment on above: Performed By: #### C BC #### [facility] [address] [place] [address] Dr. Destinee Billingsley Neutrophils/100 WBC (Bld) 57.7 % Normal 43.0-75.0 [facility] Comment on above: Performed By: #### C BC #### [facility] [address] [place] [address] Dr. Destinee Billingsley Platelet mean volume (Bld) [Entitic vol] 10.2 fL Normal 9.5-13.5 [facility] Comment on above: Performed By: #### C BC #### [facility] [address] [place] [address] Dr. Destinee Billingsley PLT 253 103/ul Normal 150-450 [facility] Comment on above: Performed By: #### C BC #### [facility] [address] [place] [address] Dr. Destinee Billingsley RBC 4.51 106/ul Critically low 4.70-6.10 [facility] Comment on above: Performed By: #### C BC #### [facility] [address] [place] [address] Dr. Destinee Billingsley WBC 6.3 103/ul Normal 4.0-11.0 [facility] Comment on above: Performed By: #### C BC #### [facility] [address] [address] [address] Destinee Billingsley GLYCOHEMOGLOBIN A1Con 2021 ADA RECOMMENDATION SEE BELOW Normal [facility] Comment on above: Result Comment: ADA RECOMMENDED LIMIT 4.0 - 6.0 ADA THERAPEUTIC TARGET < 7.0 ACTION SUGGESTED > 7.0 Performed By: #### A 1C #### [facility] [address] [place] [address] Dr. Destinee Billingsley Glucose [Mass/Vol] 131 mg/dL Normal [facility] Comment on above: Performed By: #### A 1C #### [facility] [address] [place] [address] Dr. Destinee Billingsley HbA1c (Bld) [Mass fraction] 6.2 % Normal 4.5-6.2 [facility] Comment on above: Performed By: #### A 1C #### [facility] [address] [place] [address] Dr. Destinee Billingsley LIPID PROFILEon 05-04-2022 CHOL-HDL RATIO NORM SEE BELOW Normal [facility] Comment on above: Result Comment: 3.3 - 4.4 LOW RISK 4.4 - 7.1 AVERAGE RISK 7.1 - 11.0 MODERATE RISK >11.0 HIGH RISK Performed By: #### C MP, BNP #### [facility] [address] [place] [address] Dr. Destinee Billingsley Cholesterol [Mass/Vol] 130 mg/dL Normal <=200 [facility] Comment on above: Performed By: #### C MP, BNP #### [facility] [address] [address] [address] Destinee Billingsley Cholesterol in HDL [Mass/Vol] 36 mg/dL Critically low 40-60 [facility] Comment on above: Performed By: #### C MP, BNP #### [facility] [address] [address] [address] Destinee Billingsley Cholesterol in LDL [Mass/Vol] 68.2 mg/dL Normal [facility] Comment on above: Performed By: #### C MP, BNP #### [facility] [address] [address] [address] Destinee Billingsley Cholesterol.total/ Cholesterol in HDL [Mass ratio] 3.6 {ratio} Normal [facility] Comment on above: Performed By: #### C MP, BNP #### [facility] [address] [address] [address] Destinee Billingsley HDL NORMAL > or = 60 mg/dl - LO W CARDIOVASCULAR RISK <40 mg/dl - HIGH CARDIOVASCULAR RISK Normal [facility] Comment on above: Performed By: #### C MP, BNP #### [facility] [address] [address] [address] Destinee Billingsley LDL CALC NORMAL SEE BELOW Normal [facility] Comment on above: Result Comment: <100 mg/dl OPTIMAL 100 - 129 mg/dl NEAR OR ABOVE OPTIMAL 130 - 159 mg/dl BORDERLINE HIGH 160 - 189 mg/dl HIGH >190 mg/dl VERY HIGH Performed By: #### C MP, BNP #### [facility] [address] [place] [address] Dr. Destinee Billingsley Triglyceride [Mass/Vol] 129 mg/dL Normal <=150 [facility] Comment on above: Performed By: #### C MP, BNP #### [facility] [address] [place] [address] Dr. Destinee Billingsley VLDL CALC 25.8 mg/dL Normal [facility] Comment on above: Performed By: #### C MP, BNP #### [facility] [address] [address] [address] Destinee Billingsley PROF 14(COMP METB)on 022 Albumin [Mass/Vol] 3.6 g/dL Normal 3.4-5.0 [facility] Comment on above: Performed By: #### C MP, BNP #### [facility] [address] [place] [address] Dr. Destinee Billingsley Albumin/Globulin [Mass ratio] 1.2 {ratio} Normal [facility] Comment on above: Performed By: #### C MP, BNP #### [facility] [address] [address] [address] Destinee Billingsley ALP [Catalytic activity/Vol] 87 U/L Normal 46-116 [facility] Comment on above: Performed By: #### C MP, BNP #### [facility] [address] [address] [address] Destinee Billingsley ALT [Catalytic activity/Vol] 86 U/L Critically high 16-63 [facility] Comment on above: Performed By: #### C MP, BNP #### [facility] [address] [address] [address] Destinee Billingsley Anion gap [Moles/Vol] 13.1 mmol/L Normal [facility] Comment on above: Performed By: #### C MP, BNP #### [facility] [address] [place] [address] Dr. Destinee Billingsley AST [Catalytic activity/Vol] 44 U/L Critically high 15-37 [facility] Comment on above: Performed By: #### C MP, BNP #### [facility] [address] [place] [address] Dr. Destinee Billingsley Bilirubin [Mass/Vol] 0.8 mg/dL Normal 0.2-1.0 [facility] Comment on above: Performed By: #### C MP, BNP #### [facility] [address] [place] [address] Dr. Destinee Billingsley Calcium [Mass/Vol] 9.1 mg/dL Normal 8.5-10.1 [facility] Comment on above: Performed By: #### C MP, BNP #### [facility] [address] [place] [address] Dr. Destinee Bililngsley Chloride [Moles/Vol] 104 mmol/L Normal 98-107 [facility] Comment on above: Performed By: #### C MP, BNP #### [facility] [address] [address] [address] Destinee Bililngsley CO2 [Moles/Vol] 28.1 mmol/L Normal 21.0-32.0 [facility] Comment on above: Performed By: #### C MP, BNP #### [facility] [address] [place] [address] Dr. Destinee Billingsley Creatinine [Mass/Vol] 0.91 mg/dL Normal 0.70-1.30 [facility] Comment on above: Performed By: #### C MP, BNP #### [facility] [address] [address] [address] Destinee Billingsley EGFR-AF ENGLISH >60 Normal >=60 [facility] Comment on above: Performed By: #### C MP, BNP #### [facility] [address] [place] [address] Dr. Destinee Billingsley EGFR-NON AF ENGLISH >60 Normal >=60 [facility] Comment on above: Performed By: #### C MP, BNP #### [facility] [address] [place] [address] Dr. Destinee Billinsgley Globulin (S) [Mass/Vol] 2.9 g/dL Normal [facility] Comment on above: Performed By: #### C MP, BNP #### [facility] [address] [place] [address] Dr. Destinee Billingsley Glucose [Mass/Vol] 138 mg/dL Critically high 74-106 [facility] Comment on above: Performed By: #### C MP, BNP #### [facility] [address] [place] [address] Dr. Destinee Billingsley Potassium [Moles/Vol] 4.2 mmol/L Normal 3.5-5.1 [facility] Comment on above: Performed By: #### C MP, BNP #### [facility] [address] [place] [address] Dr. Destinee Billingsley Protein [Mass/Vol] 6.5 g/dL Normal 6.4-8.2 [facility] Comment on above: Performed By: #### C MP, BNP #### [facility] [address] [place] [address] Dr. Destinee Billingsley Sodium [Moles/Vol] 141 mmol/L Normal 136-145 [facility] Comment on above: Performed By: #### C MP, BNP #### [facility] [address] [place] [address] Dr. Destinee Billingsley Urea nitrogen [Mass/Vol] 7.0 mg/dL Normal 7.0-18.0 [facility] Comment on above: Performed By: #### C MP, BNP #### [facility] [address] [place] [address] Dr. Destinee Billingsley Urea nitrogen/Creatinin e [Mass ratio] 7.7 mg/mg Normal [facility] Comment on above: Performed By: #### C MP, BNP #### [facility] [address] [place] [address] Dr. Destinee Billingsley URIC ACID SERUMon 05-04-2022 Urate [Mass/Vol] 8.7 mg/dL Critically high 3.5-7.2 [facility] Comment on above: Performed By: #### C MP, BNP #### [facility] [address] [place] [address] Dr. Destinee Billingsley CA 19-9on 03-15-2022 CA 19-9 6 U/mL Normal 0-35 [facility] Comment on above: Result Comment: Amitive Electrochemiluminescence Immunoassay (ECLIA) . Values obtained with different assay methods or kits cannot be used interchangeably. Results cannot be interpreted as absolute evidence of the presence or absence of malignant disease. Performed By: #### C MP, BNP #### [facility] [address] [place] [address] Dr. Destinee Billingsley H PYLORI ANTIBODY IGGon 02-24 H. PYLORI IGG ABS 0.32 Index Value Normal 0.00-0.79 [facility] Comment on above: Result Comment: Nega tive <0.80 Equivocal 0.80 - 0.89 Positive >0.89 Performed By: #### C MP, BNP #### [facility] [address] [place] [address] Dr. Destinee Billingsley AMMONIAon 03-14-2022 Ammonia (P) [Moles/Vol] 20 umol/L Normal 11-32 [facility] Comment on above: Performed By: #### A MM #### [facility] [address] [place] [address] Dr. Destinee Billingsley AMYLASEon 03-14-2022 Amylase [Catalytic activity/Vol] 37 U/L Normal 25-115 [facility] Comment on above: Result Comment: DISR EGARD VALUE / CALIBRATION NOT COMPLETED FOR THIS TEST Performed By: #### C MP, BNP #### [facility] [address] [place] [address] Dr. Destinee Billingsley LIPASEon 03-14-2022 Lipase [Catalytic activity/Vol] 91.0 U/L Normal 73.0-393.0 [facility] Comment on above: Performed By: #### C MP, BNP #### [facility] [address] [place] [address] Dr. Destinee Billingsley LYME DISEASE AB EIA W REFLEX on 03-14-2022 Lyme Total Antibody,EIA Negative Normal Negative [facility] Comment on above: Result Comment: Lyme Antibody Negative No laboratory evidence of infection with B. burgdorferi (Lyme disease). Negative results may occur in patients recently infected (greater than or equal to 14 days) with B. burgdorferi. If recent infection is suspected, repeat testing on a new sample collected in 7 to 14 days is recommended. Performed By: #### C MP, BNP #### [facility] [address] [place] [address] Dr. Destinee Billingsley PROF 14(COMP METB)on 022 Albumin [Mass/Vol] 3.6 g/dL Normal 3.4-5.0 [facility] Comment on above: Performed By: #### C MP, BNP #### [facility] [address] [place] [address] Dr. Destinee Billingsley Albumin/Globulin [Mass ratio] 1.3 {ratio} Normal [facility] Comment on above: Performed By: #### C MP, BNP #### [facility] [address] [place] [address] Dr. Destinee Billingsley ALP [Catalytic activity/Vol] 75 U/L Normal 46-116 [facility] Comment on above: Performed By: #### C MP, BNP #### [facility] [address] [place] [address] Dr. Destinee Billingsley ALT [Catalytic activity/Vol] 83 U/L Critically high 16-63 [facility] Comment on above: Performed By: #### C MP, BNP #### [facility] [address] [address] [address] Destinee Billingsley Anion gap [Moles/Vol] 13.2 mmol/L Normal [facility] Comment on above: Performed By: #### C MP, BNP #### [facility] [address] [address] [address] Destinee Billingsley AST [Catalytic activity/Vol] 51 U/L Critically high 15-37 [facility] Comment on above: Performed By: #### C MP, BNP #### [facility] [address] [address] [address] Destinee Billingsley Bilirubin [Mass/Vol] 1.0 mg/dL Normal 0.2-1.0 [facility] Comment on above: Performed By: #### C MP, BNP #### [facility] [address] [address] [address] Destinee Billingsley Calcium [Mass/Vol] 8.7 mg/dL Normal 8.5-10.1 [facility] Comment on above: Performed By: #### C MP, BNP #### [facility] [address] [address] [address] Destinee Billingsley Chloride [Moles/Vol] 110 mmol/L Critically high 98-107 [facility] Comment on above: Performed By: #### C MP, BNP #### [facility] [address] [address] [address] Destinee Billingsley CO2 [Moles/Vol] 24.3 mmol/L Normal 21.0-32.0 [facility] Comment on above: Performed By: #### C MP, BNP #### [facility] [address] [address] [address] Destinee Billignsley Creatinine [Mass/Vol] 0.89 mg/dL Normal 0.70-1.30 [facility] Comment on above: Performed By: #### C MP, BNP #### [facility] [address] [address] [address] Destinee Billingsley EGFR-AF ENGLISH >60 Normal >=60 [facility] Comment on above: Performed By: #### C MP, BNP #### [facility] [address] [address] [address] Destinee Billingsley EGFR-NON AF ENGLISH >60 Normal >=60 [facility] Comment on above: Performed By: #### C MP, BNP #### [facility] [address] [address] [address] Destinee Billingsley Globulin (S) [Mass/Vol] 2.7 g/dL Normal [facility] Comment on above: Performed By: #### C MP, BNP #### [facility] [address] [address] [address] Destinee Billingsley Glucose [Mass/Vol] 92 mg/dL Normal 74-106 [facility] Comment on above: Performed By: #### C MP, BNP #### [facility] [address] [address] [address] Destinee Billingsley Potassium [Moles/Vol] 3.5 mmol/L Normal 3.5-5.1 [facility] Comment on above: Performed By: #### C MP, BNP #### [facility] [address] [address] [address] Destinee Billingsley Protein [Mass/Vol] 6.3 g/dL Critically low 6.4-8.2 [facility] Comment on above: Performed By: #### C MP, BNP #### [facility] [address] [address] [address] Destinee Billingsley Sodium [Moles/Vol] 144 mmol/L Normal 136-145 [facility] Comment on above: Performed By: #### C MP, BNP #### [facility] [address] [address] [address] Destinee Billingsley Urea nitrogen [Mass/Vol] 10.0 mg/dL Normal 7.0-18.0 [facility] Comment on above: Performed By: #### C MP, BNP #### [facility] [address] [address] [address] Destinee Billingsley Urea nitrogen/Creatinin e [Mass ratio] 11.2 mg/mg Normal [facility] Comment on above: Performed By: #### C MP, BNP #### [facility] [address] [place] [address] Dr. Destinee Billingsley BNPon 03-06-2022 Natriuretic peptide B (Bld) [Mass/Vol] 272.0 pg/mL Normal <=450.0 [facility] Comment on above: Performed By: #### C MP, BNP #### [facility] [address] [place] [address] Dr. Destinee Billingsley PROF 14(COMP METB)on 022 Albumin [Mass/Vol] 3.5 g/dL Normal 3.4-5.0 [facility] Comment on above: Performed By: #### C MP, BNP #### [facility] [address] [place] [address] Dr. Destinee Billingsley Albumin/Globulin [Mass ratio] 1.2 {ratio} Normal [facility] Comment on above: Performed By: #### C MP, BNP #### [facility] [address] [place] [address] Dr. Destinee Billingsley ALP [Catalytic activity/Vol] 81 U/L Normal 46-116 [facility] Comment on above: Performed By: #### C MP, BNP #### [facility] [address] [place] [address] Dr. Destinee Billingsley ALT [Catalytic activity/Vol] 83 U/L Critically high 16-63 [facility] Comment on above: Performed By: #### C MP, BNP #### [facility] [address] [place] [address] Dr. Destinee Billingsley Anion gap [Moles/Vol] 12.2 mmol/L Normal [facility] Comment on above: Performed By: #### C MP, BNP #### [facility] [address] [place] [address] Dr. Destinee Billingsley AST [Catalytic activity/Vol] 44 U/L Critically high 15-37 [facility] Comment on above: Performed By: #### C MP, BNP #### [facility] [address] [place] [address] Dr. Destinee Billingsley Bilirubin [Mass/Vol] 0.8 mg/dL Normal 0.2-1.0 [facility] Comment on above: Performed By: #### C MP, BNP #### [facility] [address] [place] [address] Dr. Destinee Billingsley Calcium [Mass/Vol] 8.7 mg/dL Normal 8.5-10.1 [facility] Comment on above: Performed By: #### C MP, BNP #### [facility] [address] [place] [address] Dr. Destinee Billingsley Chloride [Moles/Vol] 106 mmol/L Normal 98-107 [facility] Comment on above: Performed By: #### C MP, BNP #### [facility] [address] [place] [address] Dr. Destinee Billingsley CO2 [Moles/Vol] 25.2 mmol/L Normal 21.0-32.0 [facility] Comment on above: Performed By: #### C MP, BNP #### [facility] [address] [place] [address] Dr. Destinee Billingsley Creatinine [Mass/Vol] 0.89 mg/dL Normal 0.70-1.30 [facility] Comment on above: Performed By: #### C MP, BNP #### [facility] [address] [place] [address] Dr. Destinee Billingsley EGFR-AF ENGLISH >60 Normal >=60 [facility] Comment on above: Performed By: #### C MP, BNP #### [facility] [address] [place] [address] Dr. Destinee Billingsley EGFR-NON AF ENGLISH >60 Normal >=60 [facility] Comment on above: Performed By: #### C MP, BNP #### [facility] [address] [place] [address] Dr. Destinee Billingsley Globulin (S) [Mass/Vol] 2.9 g/dL Normal [facility] Comment on above: Performed By: #### C MP, BNP #### [facility] [address] [place] [address] Dr. Destinee Billingsley Glucose [Mass/Vol] 120 mg/dL Critically high 74-106 [facility] Comment on above: Performed By: #### C MP, BNP #### [facility] [address] [place] [address] Dr. Destinee Billingsley Potassium [Moles/Vol] 3.4 mmol/L Critically low 3.5-5.1 [facility] Comment on above: Performed By: #### C MP, BNP #### [facility] [address] [place] [address] Dr. Destinee Billingsley Protein [Mass/Vol] 6.4 g/dL Normal 6.4-8.2 [facility] Comment on above: Performed By: #### C MP, BNP #### [facility] [address] [place] [address] Dr. Destinee Billingsley Sodium [Moles/Vol] 140 mmol/L Normal 136-145 [facility] Comment on above: Performed By: #### C MP, BNP #### [facility] [address] [place] [address] Dr. Destinee Billingsley Urea nitrogen [Mass/Vol] 14.0 mg/dL Normal 7.0-18.0 [facility] Comment on above: Performed By: #### C MP, BNP #### [facility] [address] [place] [address] Dr. Destinee Billingsley Urea nitrogen/Creatinin e [Mass ratio] 15.7 mg/mg Normal [facility] Comment on above: Performed By: #### C MP, BNP #### [facility] [address] [place] [address] Dr. Destinee Billingsley HEMOGLOBINon 02-08-2022 Hemoglobin (Bld) [Mass/Vol] 14.1 g/dL Normal 14.0-18.0 [facility] Comment on above: Performed By: #### C MP, BNP #### [facility] [address] [place] [address] Dr. Destinee Billingsley XR CHEST 2 Von 01-16-2022 XR CHEST 2 V EXAMINATION: XR CHES T 2 V HISTORY: Dyspnea COMPARISON: 12/13/2020 TECHNIQUE: PA and lateral FINDINGS: LUNGS: No significant pulmonary parenchymal abnormalities. VASCULATURE: No increased pulmonary vasculature. PLEURA: No pneumothorax, effusion, or pleural thickening. CARDIAC: No cardiomegaly or cardiac silhouette abnormality. MEDIASTINUM: No visible mass or adenopathy. BONES: No fracture or visible bone lesion. OTHER: Negative. IMPRESSION: No acute disease. Electronically authenticated by: BUTCH FUCHS Date: 2022-01-16 14:44 Normal [facility] Cardiovascular Lab Reporton 01-05-2021 Cardiovascular Lab Report [facility] Patient Name: Joss Wang [facility] MR #: [id number] Physician: Kiko Barr Department of [facility] Service Date: 01/05/2021 Division of Birthdate: 1975 Cardiology Room #: [facility] [address] [place] [address] Cardiovascular Laboratory Report INDICATION: The patient is a 45-year-old man, who was evaluated in Cardiology Clinic because of typical symptoms of angina. His echocardiogram showed mildly reduced left ventricular function with an ejection fraction of 45% to 60%. He was referred for cardiac catheterization. PROCEDURE: Bilateral selective coronary angiography from the left radial access. METHODS: Procedure was explained to the patient with risks and benefits. He signed informed consent. He was brought to clinical laboratory director in a fasting state. The left wrist area was prepped and draped in usual fashion. Modified Matthew's test was favorable. Access in the left radial artery was obtained using micropuncture technique. A 6-Kazakh x 11 cm hydrophilic sheath was advanced, verapamil was given through the sheath and heparin was administered intravenously. Bilateral selective coronary angiography was then performed using a 6-Kazakh JR4 diagnostic catheter for engagement of the right coronary artery following which intracoronary nitroglycerin was administered after the initial angiogram was obtained. Then the catheter was then exchanged over wire to a 6-Kazakh JL3.5 diagnostic catheter, which was used to engage the left coronary artery and then angiography was performed. Intracoronary nitroglycerin 100 mcg was administered followed by additional angiography. Catheter was removed. Procedure was concluded. A TR band was used for hemostasis in the left radial artery. He tolerated the procedure well. He will be observed for 3 hours and then discharged to home. TOTAL FLUORO TIME: 5.49 minutes. TOTAL AIR KERMA: 489 mGy. TOTAL CONTRAST VOLUME: 55 mL. HEMODYNAMICS: AO 121/75, mean 95. CORONARY ANGIOGRAPHY: This is a right dominant circulation. Left main: This arises from left coronary cusp. It bifurcates into left anterior descending and circumflex vessels. Left main is free of disease. Left anterior descending: This is a large vessel that tapers in its mid to distal segments it has no disease. After administration of intracoronary nitroglycerin, the caliber of the vessel was larger. Circumflex vessel: This arises normally and is a nondominant vessel. It is a large artery with no angiographic disease. Right coronary artery: This arises from the right coronary cusp. It is a large and dominant vessel. There was catheter induced spasm in the proximal segment that was reduced by administration of intracoronary nitroglycerin. The mid segment has mild disease. The distal segment appears angiographically normal. SUMMARY OF FINDINGS: 1. Mild coronary artery disease involving the mid right coronary artery. 2. Catheter-induced spasm in the proximal right coronary artery, resolved after administration of intracoronary nitroglycerin. 3. Small caliber LAD with no atherosclerotic disease. The caliber of the LAD improved after administration of intracoronary nitroglycerin. 4. Angiographically normal circumflex vessel. RECOMMENDATIONS: Continue medical therapy and consider addition of nitrates therapy if the patient continues to have symptoms of angina. The patient will be referred to cardiac rehab. Electronically Signed by: Kiko Drummond M.D. 01/08/2021 09:10 A Kiok Drummond M.D. Date Dict: 01/05/2021/04:23 P/Kiko Drummond M.D. Date Trans: 01/05/2021 04:52 P/lily [id number] cc: Arlyn Ward M.D. [address] [place] [address] [facility] Encounters Encounter Date Encounter Type Care Provider Facility Start: 12-29-2023 Letter encounter [facility] Start: 09-22-2023 Letter encounter [facility] Start: 12-27-2022 End: 12-28-[address] ARLYN WARD . Facility: Start: 12-23-2022 Letter encounter [facility] Start: 05-11-2022 Encounter for genera l adult medical examination without abnormal findings DR ARLYN WARD . [facility] Start: 05-04-2022 End: 05-05-[address] ARLYN WARD . Facility: Start: 05-04-2022 End: 05-05-2022 Encounter for general adult medical examination without abnormal findings DR ARLYN WARD . Facility:[facility] Start: 03-14-2022 End: 03-15-[address] ARLYN WARD . Facility:[facility] Start: 03-13-2022 End: 03-14-[address] ARLYN WARD . Facility:[facility] Start: 03-06-2022 End: 03-07-[address] ARLYN WARD . Facility:[facility] Start: 02-08-2022 End: 02-09-[address] ARLYN WARD . Facility:[facility] Start: 01-16-2022 End: 01-17-[address] ARLYN WARD . Facility: Start: 01-05-2021 End: 01-06-2021 ambulatory PROVIDER UNKNOWN Facility:[facility] Procedures Date Procedure Procedure Detail Performing Clinician Start: 05-04-[address] ZACHARY WARD . Comment on above: Performed By: #### C MP, BNP #### [facility] [address] [place] [address] Dr. Destinee Billingsley Plan of Treatment Date Care Activity Detail Author Start: 04-26-2023 Influenza vaccination Influenza Vacc ine (#1) [facility] Start: 2023 Shingles (RZV) Vacci ne (1 of 2) Shingles (RZV) Vaccine (1 of 2) [facility] Start: 2018 Screening for malign ant neoplasm of colon [facility] Start: 2008 Lipid panel Ch[facility] Start: 1992 Hepatitis A (HAV) Va ccine (optional start 19+ years) Hepatitis A (HAV) Vaccine (optional start 19+ years) [facility] Start: 1991 Hepatitis C screening Hepatitis C An [facility] Start: 1991 Tetanus + diphtheria + acellular pertussis vaccine (product) Tdap Booster [facility] Start: 1988 HIV screening HIV Test [facility] Start: 1973 COVID-19 Vaccine (#1) COVID-19 Vacci ne (#1) [facility] Start: 1973 Hepatitis B vaccination Hepati tis B (HBV) Vaccine (1 of 3 - [facility] Start: [facility] Screening for malign ant neoplasm of colon Colonoscopy [facility] Payers Date Payer Category Payer Unknown ANTHEM -BLUE [employer] TRADITIONAL ANTHEM /BLUE CROSS TRADITIONAL [id number] 2012-Present P Sanjiv REYES [id number] [place] [address] Indemnity [id number] 1973 Unknown [id number] 7 1973 Unknown [id number] 3 1973 Unknown [id number] 3 1973 Unknown [id number] 3 1973 Unknown [id number] 3 1973 Unknown [id number] 3 1973 Unknown [id number] 3 1973 Unknown [id number] 3 1959 Unknown [id number] Social History Date Type Detail Facility Start: 07-15-2012 Tobacco smoking status NHIS Smokes t obacco daily [facility] History of tobacco use [facility] Start: 07-15-2012 Cigarettes smoked cu rrent (pack per day) - Reported 1 [facility] Start: 07-15-2012 Tobacco use and exposure Smokeless t obacco non-user [facility] Start: 05-28-2014 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) [facility] Start: 1973 Sex Assigned At Not on file [facility] Gender identity Not on file [facility] Summary Purpose Family History No Family History Records FoundNo Family History Records Found Advance Directives No Advanced Directives Records FoundNo Advanced Directives Records Found Additional Source Comments (unrecognized sect ion and content) No Status Records FoundNo Status Records Found INFORMATION SOURCE (unrecogn ized section and content) DATE CREATED AUTHOR 01/16/2021 [facility] DATE CREATED AUTHOR AUTHOR'S ORGANIZ ATION 01/03/2023 [facility] FOR RECORDS PERTAINING TO PATIENTS WHO ARE OR HAVE BEEN ENROLLED IN A CHEMICAL DEPENDENCY/SUBSTANCEABUSE PROGRAM, SOME INFORMATION MAY BE OMITTED. This clinical summary was aggregated from multiple sources. Caution should be exercised in using it in the provision of clinical care. This summary normalizes information from multiple sources, and as a consequence, information in this document may materially change the coding, format and clinical context of patient data. In addition, data may be omitted in some cases. CLINICAL DECISIONS SHOULD BE BASED ON THE PRIMARY CLINICAL RECORDS. [facility] [employer] [facility]. provides no warranty or guarantee of the accuracy or completeness of information in this document.
[2024-05-12 18:30] LABS: Internal Control Within Normal Limits; Occult Blood Positive
== END 2024-05-12 17:04 | disposition home or self-care (01) ==
LOC: LAB 17:03
PROVIDERS: PCP Family Medicine; Visit Provider Family Medicine
DX: Z00.00 Encounter for general adult medical examination without abnormal findings (principal); R05.1 Acute cough
CPT/HCPCS: 87070; G0328

== ENCOUNTER 2024-05-26 14:54 | Outpatient (OUT) | payer BC, SELFPAY ==
--- OUTSIDE RECORDS SUMMARY | 2024-05-26 15:04 | XMS_ITS | CCD ---
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 Role Phone UNKNOWN, PROVIDER Admitting Unavailable ARLYN PINEDA Referring Unavailable ARLYN PINEDA Primary Care Unavailable UNKNOWN, PROVIDER Attending Unavailable Unavailable Primary Care Provider Unavailabl e CHRISTAY ., DR STODDARD Attending Unavailable HOY ., [...] Unavailable HOY ., DR STODDARD Consulting Unavailable RIVERSIDE, DR BUTCH Corcoran Consulting Unavailable Christay Arlyn Primary Care Physician Lupillo SHINE Attending Unavailable Arlyn Pineda Referring Unavailable Allergies Allergy Classification Reported Allergen(s) Allergy Type Date of Onset Reaction(s) Facility Acetaminophen / oxyCODONE (1 source) Acetaminophen / oxyCODONE Drug Allergy 01-06-20 [facility] Latex (1 source) Latex Substance Allergy 01-06-20 [facility] NSAIDs (1 source) Ketorolac Drug Allergy 01-06-20 [facility] Opioid Agonists (1 source) traMADol Drug Allergy 01-06-20 21 [facility] (4 sources) Acetaminophen / oxyCODONE; Translations: [Percocet] Drug Allergy 01-14-20 12 [facility] (5 sources) Latex; Translations: [Latex] Propensity to adverse reactions to drug 01-14-20 12 Blister (morphologic abnormality) [facility] Work Phone: (5 sources) nickel sulfate; Translations: [Nickel] Drug Allergy 01-14-20 12 Blister (morphologic abnormality) [facility] (3 sources) traMADol Drug Allergy 01-14-20 12 [facility] (1 source) Ketorolac Drug Allergy 11-09-19 16 [facility] (1 source) Latex Drug allergy (disorder) 11-02-19 16 [facility] (1 source) Leucine Drug Allergy 11-09-19 16 [facility] (1 source) methylparaben Drug Allergy 11-18-19 16 [facility] (2 sources) Ketorolac; Translations: [ketorolac] Drug Allergy Patient reported problems (finding) [facility] (2 sources) Meperidine; Translations: [meperidine] Drug Allergy Patient reported problems (finding) [facility] Medications Current Medications Medication Drug Class(es) Dates [...] for Pain. 40 Tab 1 08/27/2013 Active acetaminophen 325 mg / HYDROcodone bitartrate 5 mg oral tablet (1 source) Opioid Agonist Start: 05-18-2024 take 1 tablet by mouth four times daily as needed for pain acetaminophen-hyd rocodone 325 mg-5 mg oral tablet 1 tab(s), Oral, QID as needed for pain, Refill(s) 0 Start Date: 05/18/24 Status: Ordered allopurinol 100 mg oral tablet (1 source) Xanthine Oxidase Inhibitor Start: 05-18-2024 take 1 tablet by mouth once daily allopurinol 100 mg Tab 100 mg = 1 tab(s), Oral, Daily, Refills(s) 0 Start Date: 05/18/24 Status: Ordered amLODIPine 10 mg oral tablet (3 sources) Dihydropyridine Calcium Channel Jailyn Start: 01-14-2012 take 1 tablet by mouth once daily amLODIPine (NORVASC) 10 MG tablet Indications: Arthritis , Right arm pain Take 1 Tab by mouth daily. 30 Tab 3 01/14/2012 Active aspirin 81 mg delayed release oral tablet (1 source) Platelet Aggregation Inhibitor, Nonsteroidal Anti-inflammatory Drug Start: 05-18-2024 take 1 tablet by mouth once daily aspirin 81 mg Oral EC Tab 81 mg = 1 tab(s), Oral, Daily, Refills(s) 0 Start Date: 05/18/24 Status: Ordered atorvastatin 40 mg oral tablet (1 source) HMG-CoA Reductase Inhibitor Start: 05-18-2024 take 1 tablet by mouth once daily atorvastatin 40 mg Tab 40 mg = 1 tab(s), Oral, Daily, Refills(s) 0 Start Date: 05/18/24 Status: Ordered cetirizine hydrochloride 10 mg oral tablet (4 sources) Histamine-1 Receptor Antagonist Start: 05-18-2024 take 1 tablet by mouth once daily cetirizine 10 mg Tab 10 mg = 1 tab(s), Oral, Daily, Refills(s) 0 Start Date: 05/18/24 Status: Ordered Start: 01-14-2012 take 1 tablet by len th once daily cetirizine (ZYRTEC) 10 MG tablet Indications: Arthritis , Right arm pain Take 1 Tab by mouth daily. 30 Tab 3 01/14/2012 Active 2 ml dupilumab 150 mg/ml auto-injector (1 source) Interleukin-4 Receptor alpha Antagonist Start: 05-18-2024 inject 300 mg by subcutaneous injection every other week Dupixent Pre-filled Pen 300 mg/2 mL subcutaneous solution 300 mg, SubCutaneous, q2wk, Refills(s) 0 Start Date: 05/18/24 Status: Ordered esomeprazole 40 mg delayed release oral capsule (4 sources) Proton Pump Inhibitor Start: 12-21-2010 take 1 capsule by mouth once daily [...] for Pain. 60 Tab 2 01/14/2012 Active irbesartan 150 mg oral tablet (1 source) Angiotensin 2 Receptor Jailyn Start: 05-18-2024 take 1 tablet by mouth once daily irbesartan 150 mg Tab 150 mg = 1 tab(s), Oral, Daily, Refills(s) 0 Start Date: 05/18/24 Status: Ordered metFORMIN hydrochloride 500 mg oral tablet (1 source) Biguanide Start: 05-18-2024 metformin 500 mg Tab 250 mg = 0.5 tab(s), Oral, BID, Refills(s) 0 Start Date: 05/18/24 Status: Ordered 24 hr metoprolol succinate 50 mg extended release oral tablet (1 source) beta-Adrenergic Jailyn Start: 05-18-2024 take 1 tablet by mouth once daily metoprolol succinate 50 mg ER Tab 50 mg = 1 tab(s), Oral, Daily, Refills(s) 0 Start Date: 05/18/24 Status: Ordered montelukast 10 mg oral tablet (1 source) Leukotriene Receptor Antagonist Start: 05-18-2024 take 1 tablet by mouth once daily Singulair 10 mg Tab 10 mg = 1 tab(s), Oral, Daily, Refills(s) 0 Start Date: 05/18/24 Status: Ordered Multi Vitamins oral tablet (1 source) Start: 05-18-2024 take 1 tablet by mouth once daily Multi Vitamins oral tablet 1 tab(s), Oral, Daily, Refill(s) 0 Start Date: 05/18/24 Status: Ordered Ventolin HFA 90 mcg/inh Aerosol-Adpt (1 source) Start: 05-18-2024 take 1 puff(s) by inhalation every four hours Ventolin HFA 90 mcg/inh Aerosol-Adpt 1 puff(s), Inhalation, q4hr Shortness of breath or wheezing, Refill(s) 0 Start Date: 05/18/24 Status: Ordered Problems Active Problems Problem Classification Problem Date Documented Da te Episodic/Chronic Allergic reactions (2 sources) Multiple environmental allergies; Translations: [Vesicular eczema] 11-06-2013 Episodic Chronic obstructive pulmonary disease and bronchiectasis (1 source) Chronic obstructive lung disease 05-17-2024 Chronic Congestive heart failure; nonhypertensive (2 sources) Unspecified diastolic (congestive) heart failure; Translations: [Left ventricular systolic dysfunction] Onset: 1 05-17-2024 Chronic Coronary atherosclerosis and other heart disease (5 sources) 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; Translations: [Coronary arteriosclerosis] Onset: 1 Chronic Deficiency and other anemia (1 source) Anemia, unspecified; Translations: [ANEMIA UNSPECIFIED] Onset: 3 Episodic Diabetes mellitus without complication (1 source) Diabetes mellitus 05-18-2024 Chronic Diabetes mellitus without complication (1 source) Other abnormal glucose; Translations: [OTHER ABNORMAL GLUCOSE] Onset: 3 Episodic Disorders of lipid metabolism (2 sources) Hyperlipidemia; Translations: [Hypertriglyceridemia] Onset: 1 05-17-2024 Chronic Esophageal disorders (1 source) Gastroesophageal reflux disease 11-06-2013 Chronic Essential hypertension (2 sources) Hypertensive disorder 12-21-2010 Chronic Gout and other crystal arthropathies (2 sources) Gout, unspecified; Translations: [Gout] Onset: 3 05-17-2024 Chronic Heart valve disorders (1 source) Tricuspid valve regurgitation 05-17-2024 Chronic Hypertension with complications and secondary hypertension (1 source) Hypertensive heart disease with heart failure; Translations: [HTN HEART DISEASE W/HEART FAIL] Onset: 3 Chronic Nutritional deficiencies (1 source) Vitamin D deficiency, unspecified; Translations: [VITAMIN D DEFICIENCY UNSPECIFIED] Onset: 3 Chronic Osteoarthritis (3 sources) Arthritis; Translations: [Unspecified osteoarthritis, unspecified site] Onset: 3 09-10-2012 Chronic Other bone disease and musculoskeletal deformities (3 sources) Progressive avascular necrosis of lunate; 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] Onset: 2 04-14-2012 Chronic Other bone disease and musculoskeletal deformities (1 source) 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 Other gastrointestinal disorders (1 source) Abnormal feces; Translations: [Other fecal abnormalities] Onset: 4 Episodic Other gastrointestinal disorders (2 sources) Occult blood in stools 05-18-2024 Episodic Other lower respiratory disease (1 source) Dyspnea, unspecified; Translations: [DYSPNEA UNSPECIFIED] Onset: 3 Episodic Other nutritional; endocrine; and metabolic disorders (1 source) Body mass index 30+ - obesity 05-19-2024 Chronic Other nutritional; endocrine; and metabolic disorders (1 source) Obesity caused by energy imbalance 05-18-2024 Chronic Other upper respiratory disease (1 source) Seasonal allergic rhinitis 05-17-2024 Chronic Residual codes; unclassified (1 source) Family history of cancer of colon 05-18-2024 Episodic Unclassified (1 source) COUGH, UNSPECIFIED; Translations: [COUGH, UNSPECIFIED] Onset: 2 Past or Other Problems Problem Classification Problem [...] Test Name Value Interpretation Reference Range Facility Ambulatory Visit Summaryon 0 05-19-2024 Ambulatory Visit Summary Ambulatory Visit Summary LUPILLO GARCIA :1975 Visit Date:05/19/2024 Ambulatory Visit Instructions Your Care Team Attending Physician - RL JOSHI, Lupillo Ruiz Primary Care Physician - Miriam JOSHI, Arlyn Referring Physician - Arlyn Pineda MD This Is Your Medications List Contact prescribing physician if questions or concerns acetaminophen-hydrocodone (acetaminophen-hydrocodone 325 mg-5 mg oral tablet) albuterol (Ventolin HFA 90 mcg/inh Aerosol-Adpt) allopurinol (allopurinol 100 mg Tab) aspirin (aspirin 81 mg Oral EC Tab) atorvastatin (atorvastatin 40 mg Tab) cetirizine (cetirizine 10 mg Tab) dupilumab (Dupixent Pre-filled Pen 300 mg/2 mL subcutaneous solution) esomeprazole (Nexium 40 mg Cap-EC) irbesartan (irbesartan 150 mg Tab) metformin (metformin 500 mg Tab) metoprolol (metoprolol succinate 50 mg ER Tab) montelukast (Singulair 10 mg Tab) multivitamin (Multi Vitamins oral tablet) Procedures Performed Arthroscopy of knee, Cardiac catheterization, carpal tunnel, Colonoscopy, Rotator cuff repair. Discharge Vitals Heart Rate (Peripheral) 65 Respiratory Rate 16 Blood Pressure 130/85 Height 175.2 cm Height 69 in Weight 94.7 kg Weight 208.34 lb BMI 30.85 Medications What How Much When Instructions Unchanged acetaminophen-hydrocodone (acetaminophen-hydrocodone 325 mg-5 mg oral tablet) 1 Tablets By Mouth 4 times a day as needed for as needed for pain Contact prescribing physician if questions or concerns Unchanged albuterol (Ventolin HFA 90 mcg/ inh Aerosol-Adpt) 1 Puffs Inhalation Every 4 hours as needed for Shortness of breath or wheezing Contact prescribing physician if questions or concerns Unchanged allopurinol (allopurinol 100 mg Tab) 1 Tablets By Mouth Every day Contact prescribing physician if questions or concerns Unchanged aspirin (aspirin 81 mg Oral EC Tab) 1 Tablets By Mouth Every day Contact prescribing physician if questions or concerns Unchanged atorvastatin (atorvastatin 40 mg Tab) 1 Tablets By Mouth Every day Contact prescribing physician if questions or concerns Unchanged cetirizine (cetirizine 10 mg Tab) 1 Tablets By Mouth Every day Contact prescribing physician if questions or concerns Unchanged dupilumab (Dupixent Pre-filled Pen 300 mg/ 2 mL subcutaneous solution) 300 Milligram Subcutaneous Every other week Contact prescribing physician if questions or concerns Unchanged esomeprazole (Nexium 40 mg Cap-EC) 1 Capsules By Mouth Every day Contact prescribing physician if questions or concerns Unchanged irbesartan (irbesartan 150 mg Tab) 1 Tablets By Mouth Every day Contact prescribing physician if questions or concerns Unchanged metformin (metformin 500 mg Tab) 0.5 Tablets By Mouth 2 times a day Contact prescribing physician if questions or concerns Unchanged metoprolol (metoprolol succinate 50 mg ER Tab) 1 Tablets By Mouth Every day Contact prescribing physician if questions or concerns Unchanged montelukast (Singulair 10 mg Tab) 1 Tablets By Mouth Every day Contact prescribing physician if questions or concerns Unchanged multivitamin (Multi Vitamins oral tablet) 1 Tablets By Mouth Every day Contact prescribing physician if questions or concerns Allergies Demerol (Patient reported problems) Latex (Blisters) Nickel (Blisters) ketorolac (Patient reported problems) Problems Ongoing - Any problem that you are currently receiving treatment for. BMI 30.0-30.9,adult Chronic obstructive pulmonary disease Coronary arteriosclerosis Diabetes Dyshidrotic eczema Family history of colon cancer Gout Hyperlipidemia Hypertension Hypertriglyceridemia Juvenile osteochondrosis of upper extremity Left ventricular systolic dysfunction Obesity due to excess calories Occult blood positive stool Seasonal allergic rhinitis Tricuspid valve regurgitation Historical - Any problem that you are no longer receiving treatment for. Acid reflux HTN - Hypertension Multiple environmental allergies Patient Survey You may receive a survey via text or e-mail asking about your office visit. Please share your experience with us by completing your survey. We appreciate your feedback and thank you for choosing us for your care. Normal [facility] INSULINon 12-28-2022 Insulin 45.9 uIU/mL Critically high 2.6-24.9 [facility] Comment on above: Performed By: #### I NSULIN #### [facility] [address] [place] [address] Dr. Destinee Billingsley BNPon 12-27-2022 Natriuretic peptide B (Bld) [Mass/Vol] 158.0 pg/mL Normal <=900.0 [facility] Comment on above: Performed By: #### C MP, BNP #### [facility] [address] [place] [address] Dr. Destinee Billingsley CBC AUTO DIFFon 12-27-2022 BASO # 0.1 103/ul Normal 0.0-0.1 [facility] Comment on above: Performed By: #### C BC #### [facility] [address] [place] [address] Dr. Destinee Billingsley Basophils/100 WBC (Bld) 1.3 % Normal 0.2-2.0 [facility] Comment on above: Performed By: #### C BC #### [facility] [address] [place] [address] Dr. Destinee Billingsley EO # 0.2 103/ul Normal 0.0-0.7 [facility] Comment on above: Performed By: #### C BC #### [facility] [address] [place] [address] Dr. Destinee Billingsley Eosinophils/100 WBC (Bld) 3.1 % Normal 0.9-7.0 [facility] Comment on above: Performed By: #### C BC #### [facility] [address] [place] [address] Dr. Destinee Billingsley Erythrocyte distribution width (RBC) [Ratio] 12.8 % Normal 11.0-15.0 [facility] Comment on above: Performed By: #### C BC #### [facility] [address] [place] [address] Dr. Destinee Billingsley Hematocrit (Bld) [Volume fraction] 40.7 % Critically low 42.0-54.0 [facility] Comment on above: Performed By: #### C BC #### [facility] [address] [place] [address] Dr. Destinee Billingsley Hemoglobin (Bld) [Mass/Vol] 14.3 g/dL Normal 14.0-18.0 [facility] Comment on above: Performed By: #### C BC #### [facility] [address] [place] [address] Dr. Destinee Billingsley IG # 0.04 10e3/ul Critically high 0.00-0.03 [facility] Comment on above: Performed By: #### C BC #### [facility] [address] [place] [address] Dr. Destinee Billingsley IG % 0.5 % Normal 0.0-0.5 [facility] Comment on above: Performed By: #### C BC #### [facility] [address] [place] [address] Dr. Destinee Billingsley LYMPH # 1.7 103/ul Normal 1.2-3.8 [facility] Comment on above: Performed By: #### C BC #### [facility] [address] [place] [address] Dr. Destinee Billingsley Lymphocytes/100 WBC (Bld) 22.3 % Normal 20.5-60.0 [facility] Comment on above: Performed By: #### C BC #### [facility] [address] [place] [address] Dr. Destinee Billingsley MANUAL DIFF REQ NO Normal [facility] Comment on above: Performed By: #### C BC #### [facility] [address] [place] [address] Dr. Destinee Billingsley MCH (RBC) [Entitic mass] 32.6 pg Normal 25.9-34.0 [facility] Comment on above: Performed By: #### C BC #### [facility] [address] [place] [address] Dr. Destinee Billingsley MCHC (RBC) [Mass/Vol] 35.1 g/dL Normal 29.9-35.2 [facility] Comment on above: Performed By: #### C BC #### [facility] [address] [place] [address] Dr. Destinee Billingsley MCV (RBC) [Entitic vol] 92.9 fL Normal 80.0-94.0 [facility] Comment on above: Performed By: #### C BC #### [facility] [address] [address] [address] Destinee Billingsley MONO # 0.9 103/ul Critically high 0.3-0.8 [facility] Comment on above: Performed By: #### C BC #### [facility] [address] [address] [address] Destinee Billingsley Monocytes/100 WBC (Bld) 11.1 % Normal 1.7-12.0 [facility] Comment on above: Performed By: #### C BC #### [facility] [address] [place] [address] Dr. Destinee Billingsley NEUT # 4.7 103/ul Normal 1.4-6.5 [facility] Comment on above: Performed By: #### C BC #### [facility] [address] [place] [address] Dr. Destinee Billingsley Neutrophils/100 WBC (Bld) 61.7 % Normal 43.0-75.0 [facility] Comment on above: Performed By: #### C BC #### [facility] [address] [place] [address] Dr. Destinee Billingsley Platelet mean volume (Bld) [Entitic vol] 9.7 fL Normal 9.5-13.5 [facility] Comment on above: Performed By: #### C BC #### [facility] [address] [place] [address] Dr. Destinee Billingsley PLT 259 103/ul Normal 150-450 [facility] Comment on above: Performed By: #### C BC #### [facility] [address] [place] [address] Dr. Destinee Billingsley RBC 4.38 106/ul Critically low 4.70-6.10 [facility] Comment on above: Performed By: #### C BC #### [facility] [address] [place] [address] Dr. Destinee Billingsley WBC 7.7 103/ul Normal 4.0-11.0 [facility] Comment on above: Performed By: #### C BC #### [facility] [address] [address] [address] Destinee Billingsley FREE THYROXINE INDEX T7on FTI 2.40 Normal 1.30-4.50 [facility] Comment on above: Performed By: #### C MP, BNP #### [facility] [address] [place] [address] Dr. Destinee Billingsley T3U 32.0 % Critically low 33.0-40.0 [facility] Comment on above: Performed By: #### C MP, BNP #### [facility] [address] [place] [address] Dr. Destinee Billingsley T4 [Mass/Vol] 7.50 ug/dL Normal 4.50-12.10 [facility] Comment on above: Performed By: #### C MP, BNP #### [facility] [address] [address] [address] Destinee Billingsley GLYCOHEMOGLOBIN A1Con 2022 ADA RECOMMENDATION SEE BELOW Normal [facility] Comment on above: Result Comment: ADA RECOMMENDED LIMIT 4.0 - 6.0 ADA THERAPEUTIC TARGET < 7.0 ACTION SUGGESTED > 7.0 Performed By: #### A 1C #### [facility] [address] [place] [address] Dr. Destinee Billingsley Glucose [Mass/Vol] 148 mg/dL Critically high 74-106 [facility] Comment on above: Performed By: #### A 1C #### [facility] [address] [address] [address] Destinee Billingsley Performed By: #### C MP, BNP #### [facility] [address] [place] [address] Dr. Destinee Billingsley HbA1c (Bld) [Mass fraction] 6.8 % Critically high 4.5-6.2 [facility] Comment on above: Performed By: #### A 1C #### [facility] [address] [place] [address] Dr. Destinee Billingsley IRONon 12-27-2022 Iron [Mass/Vol] 90.0 ug/dL Normal 65.0-175.0 [facility] Comment on above: Performed By: #### I EMMA, VITAD #### [facility] [address] [place] [address] Dr. Destinee Billingsley MAGNESIUMon 12-27-2022 Magnesium [Mass/Vol] 1.5 mg/dL Critically low 1.8-2.4 [facility] Comment on above: Performed By: #### C MP, BNP #### [facility] [address] [place] [address] Dr. Destinee Billingsley PROF 14(COMP METB)on 023 Albumin [Mass/Vol] 3.4 g/dL Normal 3.4-5.0 [facility] Comment on above: Performed By: #### C MP, BNP #### [facility] [address] [place] [address] Dr. Destinee Billingsley Albumin/Globulin [Mass ratio] 1.0 {ratio} Normal [facility] Comment on above: Performed By: #### C MP, BNP #### [facility] [address] [place] [address] Dr. Destinee Billingsley ALP [Catalytic activity/Vol] 86 U/L Normal 46-116 [facility] Comment on above: Performed By: #### C MP, BNP #### [facility] [address] [place] [address] Dr. Destinee Billingsley ALT [Catalytic activity/Vol] 61 U/L Normal 16-63 [facility] Comment on above: Performed By: #### C MP, BNP #### [facility] [address] [place] [address] Dr. Destinee Billingsley Anion gap [Moles/Vol] 13.5 mmol/L Normal [facility] Comment on above: Performed By: #### C MP, BNP #### [facility] [address] [place] [address] Dr. Destinee Billingsley AST [Catalytic activity/Vol] 41 U/L Critically high 15-37 [facility] Comment on above: Performed By: #### C MP, BNP #### [facility] [address] [place] [address] Dr. Destinee Billingsley Bilirubin [Mass/Vol] 0.6 mg/dL Normal 0.2-1.0 [facility] Comment on above: Performed By: #### C MP, BNP #### [facility] [address] [place] [address] Dr. Destinee Billingsley Calcium [Mass/Vol] 8.9 mg/dL Normal 8.5-10.1 [facility] Comment on above: Performed By: #### C MP, BNP #### [facility] [address] [place] [address] Dr. Destinee Billingsley Chloride [Moles/Vol] 104 mmol/L Normal 98-107 [facility] Comment on above: Performed By: #### C MP, BNP #### [facility] [address] [place] [address] Dr. Destinee Billingsley CO2 [Moles/Vol] 24.6 mmol/L Normal 21.0-32.0 [facility] Comment on above: Performed By: #### C MP, BNP #### [facility] [address] [place] [address] Dr. Destinee Billingsley Creatinine [Mass/Vol] 0.76 mg/dL Normal 0.70-1.30 [facility] Comment on above: Performed By: #### C MP, BNP #### [facility] [address] [place] [place] [address] Dr. Destinee Billingsley EGFR-AF GUINEAN >60 Normal >=60 [facility] Comment on above: Performed By: #### C MP, BNP #### [facility] [address] [place] [address] Dr. Destinee Billingsley EGFR-NON AF GUINEAN >60 Normal >=60 [facility] Comment on above: Performed By: #### C MP, BNP #### [facility] [address] [place] [address] Dr. Destinee Billingsley Globulin (S) [Mass/Vol] 3.4 g/dL Normal [facility] Comment on above: Performed By: #### C MP, BNP #### [facility] [address] [place] [address] Dr. Destinee Billingsley Potassium [Moles/Vol] 4.1 mmol/L Normal 3.5-5.1 [facility] Comment on above: Performed By: #### C MP, BNP #### [facility] [address] [place] [address] Dr. Destinee Billingsley Protein [Mass/Vol] 6.8 g/dL Normal 6.4-8.2 [facility] Comment on above: Performed By: #### C MP, BNP #### [facility] [address] [place] [address] Dr. Destinee Billingsley Sodium [Moles/Vol] 138 mmol/L Normal 136-145 [facility] Comment on above: Performed By: #### C MP, BNP #### [facility] [address] [place] [address] Dr. Destinee Billingsley Urea nitrogen [Mass/Vol] 13.0 mg/dL Normal 7.0-18.0 [facility] Comment on above: Performed By: #### C MP, BNP #### [facility] [address] [place] [address] Dr. Destiene Billingsley Urea nitrogen/Creatinin e [Mass ratio] 17.1 mg/mg Normal [facility] Comment on above: Performed By: #### C MP, BNP #### [facility] [address] [place] [address] Dr. Destinee Billingsley TSHon 12-27-2022 TSH 1.711 uIU/mL Normal 0.358-3.740 [facility] Comment on above: Performed By: #### C MP, BNP #### [facility] [address] [place] [address] Dr. Destinee Billingsley VITAMIN D 25 OHon 12-27-2022 VIT D 25-OH 69.9 ng/mL Normal [facility] Comment on above: Performed By: #### I EMMA, VITAD #### [facility] [address] [place] [address] Dr. Destinee Billingsley VIT D RANGES SEE BELOW Normal [facility] Comment on above: Result Comment: <20 ng/mL Vit D deficient 20 - <30 ng/mL Vit D insufficient 30 - 100 ng/mL Vit D sufficient >100 ng/mL Potential Toxicity Performed By: #### I EMMA, VITAD #### [facility] [address] [place] [address] Dr. Destinee Billingsley INSULINon 05-05-2022 Insulin 46.3 uIU/mL Critically high 2.6-24.9 [facility] Comment on above: Performed By: #### C MP, BNP #### [facility] [address] [place] [address] Dr. Destinee Billingsley TESTOSTERONE, TOTALon 2021 Testosterone [Mass/Vol] 782 ng/dL Normal 264-916 [facility] Comment on above: Result Comment: Adul t male reference interval is based on a population of healthy nonobese males (BMI <30) between 19 and 39 years old. aje Monroy.al. JCEM 2017,102;[id number]. PMID: [id number]. Performed By: #### C MP, BNP #### [facility] [address] [place] [address] Dr. Destinee Billingsley CBC AUTO DIFFon 05-04-2022 BASO # 0.1 103/ul Normal 0.0-0.1 [facility] Comment on above: Performed By: #### C BC #### [facility] [address] [place] [address] Dr. Destinee Billingsley Basophils/100 WBC (Bld) 1.9 % Normal 0.2-2.0 [facility] Comment on above: Performed By: #### C BC #### [facility] [address] [place] [address] Dr. Destinee Billingsley EO # 0.2 103/ul Normal 0.0-0.7 [facility] Comment on above: Performed By: #### C BC #### [facility] [address] [place] [address] Dr. Destinee Billingsley Eosinophils/100 WBC (Bld) 3.3 % Normal 0.9-7.0 [facility] Comment on above: Performed By: #### C BC #### [facility] [address] [place] [address] Dr. Destinee Billingsley Erythrocyte distribution width (RBC) [Ratio] 12.2 % Normal 11.0-15.0 [facility] Comment on above: Performed By: #### C BC #### [facility] [address] [place] [address] Dr. Destinee Billingsley Hematocrit (Bld) [Volume fraction] 42.8 % Normal 42.0-54.0 [facility] Comment on above: Performed By: #### C BC #### [facility] [address] [place] [address] Dr. Destinee Billingsley Hemoglobin (Bld) [Mass/Vol] 14.6 g/dL Normal 14.0-18.0 [facility] Comment on above: Performed By: #### C BC #### [facility] [address] [place] [address] Dr. Destinee Billingsley IG # 0.02 10e3/ul Normal 0.00-0.03 [facility] Comment on above: Performed By: #### C BC #### [facility] [address] [place] [address] Dr. Destinee Billingslye IG % 0.3 % Normal 0.0-0.5 [facility] Comment on above: Performed By: #### C BC #### [facility] [address] [place] [address] Dr. Destinee Billingsley LYMPH # 1.7 103/ul Normal 1.2-3.8 [facility] Comment on above: Performed By: #### C BC #### [facility] [address] [place] [address] Dr. Destinee Billingsley Lymphocytes/100 WBC (Bld) 26.4 % Normal 20.5-60.0 [facility] Comment on above: Performed By: #### C BC #### [facility] [address] [place] [address] Dr. Destinee Billingsley MANUAL DIFF REQ NO Normal [facility] Comment on above: Performed By: #### C BC #### [facility] [address] [place] [address] Dr. Destinee Billingsley MCH (RBC) [Entitic mass] 32.4 pg Normal 25.9-34.0 [facility] Comment on above: Performed By: #### C BC #### [facility] [address] [place] [address] Dr. Destinee Billingsley MCHC (RBC) [Mass/Vol] 34.1 g/dL Normal 29.9-35.2 [facility] Comment on above: Performed By: #### C BC #### [facility] [address] [place] [address] Dr. Destinee Billingsley MCV (RBC) [Entitic vol] 94.9 fL Critically high 80.0-94.0 [facility] Comment on above: Performed By: #### C BC #### [facility] [address] [place] [address] Dr. Destinee Billingsley MONO # 0.7 103/ul Normal 0.3-0.8 [facility] Comment on above: Performed By: #### C BC #### [facility] [address] [place] [address] Dr. Destinee Billingsley Monocytes/100 WBC (Bld) 10.4 % Normal 1.7-12.0 [facility] Comment on above: Performed By: #### C BC #### [facility] [address] [place] [address] Dr. Destinee Billingsley NEUT # 3.6 103/ul Normal 1.4-6.5 [facility] Comment on above: Performed By: #### C BC #### [facility] [address] [place] [address] Dr. Destinee Billingsley Neutrophils/100 WBC (Bld) 57.7 % Normal 43.0-75.0 [facility] Comment on above: Performed By: #### C BC #### [facility] [address] [place] [address] Dr. Destinee Billingsley Platelet mean volume (Bld) [Entitic vol] 10.2 fL Normal 9.5-13.5 [facility] Comment on above: Performed By: #### C BC #### [facility] [address] [place] [address] Dr. Destinee Billingsley PLT 253 103/ul Normal 150-450 [facility] Comment on above: Performed By: #### C BC #### [facility] [address] [address] [address] Destinee Billingsley RBC 4.51 106/ul Critically low 4.70-6.10 [facility] Comment on above: Performed By: #### C BC #### [facility] [address] [address] [address] Destinee Billingsley WBC 6.3 103/ul Normal 4.0-11.0 [facility] Comment on above: Performed By: #### C BC #### [facility] [address] [place] [address] Dr. Destinee Billingsley GLYCOHEMOGLOBIN A1Con 2021 ADA RECOMMENDATION SEE BELOW Normal [facility] Comment on above: Result Comment: ADA RECOMMENDED LIMIT 4.0 - 6.0 ADA THERAPEUTIC TARGET < 7.0 ACTION SUGGESTED > 7.0 Performed By: #### A 1C #### [facility] [address] [place] [address] Dr. Destinee Billingsley Glucose [Mass/Vol] 131 mg/dL Normal [facility] Comment on above: Performed By: #### A 1C #### [facility] [address] [place] [address] Dr. Destinee Billingsley HbA1c (Bld) [Mass fraction] 6.2 % Normal 4.5-6.2 [facility] Comment on above: Performed By: #### A 1C #### [facility] [address] [place] [address] Dr. Destinee Billingsley LIPID PROFILEon 05-04-2022 CHOL-HDL RATIO NORM SEE BELOW Normal [facility] Comment on above: Result Comment: 3.3 - 4.4 LOW RISK 4.4 - 7.1 AVERAGE RISK 7.1 - 11.0 MODERATE RISK >11.0 HIGH RISK Performed By: #### C MP, BNP #### [facility] [address] [place] [address] Dr. Destinee Billingsley Cholesterol [Mass/Vol] 130 mg/dL Normal <=200 [facility] Comment on above: Performed By: #### C MP, BNP #### [facility] [address] [address] [address] Destinee Billingsley Cholesterol in HDL [Mass/Vol] 36 mg/dL Critically low 40-60 [facility] Comment on above: Performed By: #### C MP, BNP #### [facility] [address] [address] [address] Destinee Billingsley Cholesterol in LDL [Mass/Vol] 68.2 mg/dL Normal [facility] Comment on above: Performed By: #### C MP, BNP #### [facility] [address] [address] [address] Destinee Billingsley Cholesterol.total/ Cholesterol in HDL [Mass ratio] 3.6 {ratio} Normal [facility] Comment on above: Performed By: #### C MP, BNP #### [facility] [address] [place] [address] Dr. Destinee Billingsley HDL NORMAL > or = 60 mg/dl - LO W CARDIOVASCULAR RISK <40 mg/dl - HIGH CARDIOVASCULAR RISK Normal [facility] Comment on above: Performed By: #### C MP, BNP #### [facility] [address] [place] [address] Dr. Destinee Billingsley LDL CALC NORMAL SEE BELOW Normal [facility] Comment on above: Result Comment: <100 mg/dl OPTIMAL 100 - 129 mg/dl NEAR OR ABOVE OPTIMAL 130 - 159 mg/dl BORDERLINE HIGH 160 - 189 mg/dl HIGH >190 mg/dl VERY HIGH Performed By: #### C MP, BNP #### [facility] [address] [address] [address] Destinee Billingsley Triglyceride [Mass/Vol] 129 mg/dL Normal <=150 [facility] Comment on above: Performed By: #### C MP, BNP #### [facility] [address] [place] [address] Dr. Destinee Billingsley VLDL CALC 25.8 mg/dL Normal [facility] Comment on above: Performed By: #### C MP, BNP #### [facility] [address] [address] [address] Destinee Billingsley PROF 14(COMP METB)on 022 Albumin [Mass/Vol] 3.6 g/dL Normal 3.4-5.0 [facility] Comment on above: Performed By: #### C MP, BNP #### [facility] [address] [place] [address] Dr. Destinee Billingsley Albumin/Globulin [Mass ratio] 1.2 {ratio} Normal [facility] Comment on above: Performed By: #### C MP, BNP #### [facility] [address] [address] [address] Destinee Billingsley ALP [Catalytic activity/Vol] 87 U/L Normal 46-116 [facility] Comment on above: Performed By: #### C MP, BNP #### [facility] [address] [place] [address] Dr. Destinee Billingsley ALT [Catalytic activity/Vol] 86 U/L Critically high 16-63 [facility] Comment on above: Performed By: #### C MP, BNP #### [facility] [address] [place] [address] Dr. Destinee Billingsley Anion gap [Moles/Vol] 13.1 mmol/L Normal [facility] Comment on above: Performed By: #### C MP, BNP #### [facility] [address] [place] [address] Dr. Destinee Billingsley AST [Catalytic activity/Vol] 44 U/L Critically high 15-37 [facility] Comment on above: Performed By: #### C MP, BNP #### [facility] [address] [place] [address] Dr. Destinee Billingsley Bilirubin [Mass/Vol] 0.8 mg/dL Normal 0.2-1.0 [facility] Comment on above: Performed By: #### C MP, BNP #### [facility] [address] [place] [address] Dr. Destinee Billingsley Calcium [Mass/Vol] 9.1 mg/dL Normal 8.5-10.1 [facility] Comment on above: Performed By: #### C MP, BNP #### [facility] [address] [place] [address] Dr. Destinee Billingsley Chloride [Moles/Vol] 104 mmol/L Normal 98-107 [facility] Comment on above: Performed By: #### C MP, BNP #### [facility] [address] [place] [address] Dr. Destinee Billingsley CO2 [Moles/Vol] 28.1 mmol/L Normal 21.0-32.0 [facility] Comment on above: Performed By: #### C MP, BNP #### [facility] [address] [address] [address] Destinee Billingsley Creatinine [Mass/Vol] 0.91 mg/dL Normal 0.70-1.30 [facility] Comment on above: Performed By: #### C MP, BNP #### [facility] [address] [place] [address] Dr. Destinee Billingsley EGFR-AF GUINEAN >60 Normal >=60 [facility] Comment on above: Performed By: #### C MP, BNP #### [facility] [address] [place] [address] Dr. Destinee Billingsley EGFR-NON AF GUINEAN >60 Normal >=60 [facility] Comment on above: Performed By: #### C MP, BNP #### [facility] [address] [place] [address] Dr. Destinee Billingsley Globulin (S) [Mass/Vol] 2.9 g/dL Normal [facility] Comment on above: Performed By: #### C MP, BNP #### [facility] [address] [place] [address] Dr. Destinee Billingsley Glucose [Mass/Vol] 138 mg/dL Critically high 74-106 [facility] Comment on above: Performed By: #### C MP, BNP #### [facility] [address] [place] [address] Dr. Destinee Billingsley Potassium [Moles/Vol] 4.2 mmol/L Normal 3.5-5.1 [facility] Comment on above: Performed By: #### C MP, BNP #### [facility] [address] [place] [address] Dr. Destinee Billingsley Protein [Mass/Vol] 6.5 g/dL Normal 6.4-8.2 [facility] Comment on above: Performed By: #### C MP, BNP #### [facility] [address] [place] [address] Dr. Destinee Billingsley Sodium [Moles/Vol] 141 mmol/L Normal 136-145 [facility] Comment on above: Performed By: #### C MP, BNP #### [facility] [address] [place] [address] Dr. Destinee Billingsley Urea nitrogen [Mass/Vol] 7.0 mg/dL Normal 7.0-18.0 [facility] Comment on above: Performed By: #### C MP, BNP #### [facility] [address] [place] [address] Dr. Destinee Billingsley Urea nitrogen/Creatinin e [Mass ratio] 7.7 mg/mg Normal [facility] Comment on above: Performed By: #### C MP, BNP #### [facility] [address] [place] [address] Dr. Destinee Billingsley URIC ACID SERUMon 05-04-2022 Urate [Mass/Vol] 8.7 mg/dL Critically high 3.5-7.2 [facility] Comment on above: Performed By: #### C MP, BNP #### [facility] [address] [place] [address] Dr. Destinee Billingsley CA 19-9on 03-15-2022 CA 19-9 6 U/mL Normal 0-35 [facility] Comment on above: Result Comment: [employer] Electrochemiluminescence Immunoassay (ECLIA) . Values obtained with different assay methods or kits cannot be used interchangeably. Results cannot be interpreted as absolute evidence of the presence or absence of malignant disease. Performed By: #### C MP, BNP #### [facility] [address] [place] [address] Dr. Destinee Billingsley H PYLORI ANTIBODY IGGon 02-24 H. PYLORI IGG ABS 0.32 Index Value Normal 0.00-0.79 [facility] Comment on above: Result Comment: Nega tive <0.80 Equivocal 0.80 - 0.89 Positive >0.89 Performed By: #### C MP, BNP #### [facility] [address] [place] [address] Dr. Destinee Billingsley AMMONIAon 03-14-2022 Ammonia (P) [Moles/Vol] 20 umol/L Normal 11-32 [facility] Comment on above: Performed By: #### A MM #### [facility] [address] [place] [address] Dr. Destinee Billingsley AMYLASEon 03-14-2022 Amylase [Catalytic activity/Vol] 37 U/L Normal 25-115 [facility] Comment on above: Result Comment: DISR EGARD VALUE / CALIBRATION NOT COMPLETED FOR THIS TEST Performed By: #### C MP, BNP #### [facility] [address] [place] [address] Dr. Destinee Billingsley LIPASEon 03-14-2022 Lipase [Catalytic activity/Vol] 91.0 U/L Normal 73.0-393.0 [facility] Comment on above: Performed By: #### C MP, BNP #### [facility] [address] [place] [address] Dr. Destinee Billingsley LYME DISEASE AB EIA W REFLEX on 03-14-2022 Lyme Total Antibody,EIA Negative Normal Negative [facility] Comment on above: Result Comment: Lyme Antibody Negative No laboratory evidence of infection with B. burgdorferi (Lyme disease). Negative results may occur in patients recently infected (greater than or equal to 14 days) with B. burgdorferi. If recent infection is suspected, repeat testing on a new sample collected in 7 to 14 days is recommended. Performed By: #### C MP, BNP #### [facility] [address] [place] [address] Dr. Destinee Billingsley PROF 14(COMP METB)on 022 Albumin [Mass/Vol] 3.6 g/dL Normal 3.4-5.0 [facility] Comment on above: Performed By: #### C MP, BNP #### [facility] [address] [place] [address] Dr. Destinee Billingsley Albumin/Globulin [Mass ratio] 1.3 {ratio} Normal [facility] Comment on above: Performed By: #### C MP, BNP #### [facility] [address] [address] [address] Destinee Billingsley ALP [Catalytic activity/Vol] 75 U/L Normal 46-116 [facility] Comment on above: Performed By: #### C MP, BNP #### [facility] [address] [address] [address] Destinee Billingsley ALT [Catalytic activity/Vol] 83 U/L Critically high 16-63 [facility] Comment on above: Performed By: #### C MP, BNP #### [facility] [address] [address] [address] Destinee Billingsley Anion gap [Moles/Vol] 13.2 mmol/L Normal [facility] Comment on above: Performed By: #### C MP, BNP #### [facility] [address] [address] [address] Destinee Billingsley AST [Catalytic activity/Vol] 51 U/L Critically high 15-37 [facility] Comment on above: Performed By: #### C MP, BNP #### [facility] [address] [address] [address] Destinee Billingsley Bilirubin [Mass/Vol] 1.0 mg/dL Normal 0.2-1.0 [facility] Comment on above: Performed By: #### C MP, BNP #### [facility] [address] [address] [address] Destinee Billingsley Calcium [Mass/Vol] 8.7 mg/dL Normal 8.5-10.1 [facility] Comment on above: Performed By: #### C MP, BNP #### [facility] [address] [address] [address] Destinee Billingsley Chloride [Moles/Vol] 110 mmol/L Critically high 98-107 [facility] Comment on above: Performed By: #### C MP, BNP #### [facility] [address] [address] [address] Destinee Billingsley CO2 [Moles/Vol] 24.3 mmol/L Normal 21.0-32.0 [facility] Comment on above: Performed By: #### C MP, BNP #### [facility] [address] [place] [address] Dr. Destinee Billingsley Creatinine [Mass/Vol] 0.89 mg/dL Normal 0.70-1.30 [facility] Comment on above: Performed By: #### C MP, BNP #### [facility] [address] [place] [address] Dr. Destinee Billingsley EGFR-AF GUINEAN >60 Normal >=60 [facility] Comment on above: Performed By: #### C MP, BNP #### [facility] [address] [place] [address] Dr. Destinee Billingsley EGFR-NON AF GUINEAN >60 Normal >=60 [facility] Comment on above: Performed By: #### C MP, BNP #### [facility] [address] [place] [address] Dr. Destinee Billingsley Globulin (S) [Mass/Vol] 2.7 g/dL Normal [facility] Comment on above: Performed By: #### C MP, BNP #### [facility] [address] [place] [address] Dr. Destinee Billingsley Glucose [Mass/Vol] 92 mg/dL Normal 74-106 [facility] Comment on above: Performed By: #### C MP, BNP #### [facility] [address] [place] [address] Dr. Destinee Billingsley Potassium [Moles/Vol] 3.5 mmol/L Normal 3.5-5.1 [facility] Comment on above: Performed By: #### C MP, BNP #### [facility] [address] [place] [address] Dr. Destinee Billingsley Protein [Mass/Vol] 6.3 g/dL Critically low 6.4-8.2 [facility] Comment on above: Performed By: #### C MP, BNP #### [facility] [address] [place] [address] Dr. Destinee Billingsley Sodium [Moles/Vol] 144 mmol/L Normal 136-145 [facility] Comment on above: Performed By: #### C MP, BNP #### [facility] [address] [place] [address] Dr. Destinee Billingsley Urea nitrogen [Mass/Vol] 10.0 mg/dL Normal 7.0-18.0 [facility] Comment on above: Performed By: #### C MP, BNP #### [facility] [address] [place] [address] Dr. Destinee Billingsley Urea nitrogen/Creatinin e [Mass ratio] 11.2 mg/mg Normal [facility] Comment on above: Performed By: #### C MP, BNP #### [facility] [address] [place] [address] Dr. Destinee Billingsley BNPon 03-06-2022 Natriuretic peptide B (Bld) [Mass/Vol] 272.0 pg/mL Normal <=450.0 [facility] Comment on above: Performed By: #### C MP, BNP #### [facility] [address] [place] [address] Dr. Destinee Billingsley PROF 14(COMP METB)on 022 Albumin [Mass/Vol] 3.5 g/dL Normal 3.4-5.0 [facility] Comment on above: Performed By: #### C MP, BNP #### [facility] [address] [place] [address] Dr. Destinee Billingsley Albumin/Globulin [Mass ratio] 1.2 {ratio} Normal [facility] Comment on above: Performed By: #### C MP, BNP #### [facility] [address] [place] [address] Dr. Destinee Billingsley ALP [Catalytic activity/Vol] 81 U/L Normal 46-116 [facility] Comment on above: Performed By: #### C MP, BNP #### [facility] [address] [place] [address] Dr. Destinee Billingsley ALT [Catalytic activity/Vol] 83 U/L Critically high 16-63 [facility] Comment on above: Performed By: #### C MP, BNP #### [facility] [address] [place] [address] Dr. Destinee Billingsley Anion gap [Moles/Vol] 12.2 mmol/L Normal [facility] Comment on above: Performed By: #### C MP, BNP #### [facility] [address] [address] [address] Destinee Billingsley AST [Catalytic activity/Vol] 44 U/L Critically high 15-37 [facility] Comment on above: Performed By: #### C MP, BNP #### [facility] [address] [address] [address] Destinee Billingsley Bilirubin [Mass/Vol] 0.8 mg/dL Normal 0.2-1.0 [facility] Comment on above: Performed By: #### C MP, BNP #### [facility] [address] [address] [address] Destinee Billingsley Calcium [Mass/Vol] 8.7 mg/dL Normal 8.5-10.1 [facility] Comment on above: Performed By: #### C MP, BNP #### [facility] [address] [place] [address] Dr. Destinee Billingsley Chloride [Moles/Vol] 106 mmol/L Normal 98-107 [facility] Comment on above: Performed By: #### C MP, BNP #### [facility] [address] [address] [address] Destinee Billingsley CO2 [Moles/Vol] 25.2 mmol/L Normal 21.0-32.0 [facility] Comment on above: Performed By: #### C MP, BNP #### [facility] [address] [place] [address] Dr. Destinee Billingsley Creatinine [Mass/Vol] 0.89 mg/dL Normal 0.70-1.30 [facility] Comment on above: Performed By: #### C MP, BNP #### [facility] [address] [place] [address] Dr. Destinee Billingsley EGFR-AF GUINEAN >60 Normal >=60 [facility] Comment on above: Performed By: #### C MP, BNP #### [facility] [address] [place] [address] Dr. Destinee Billingsley EGFR-NON AF GUINEAN >60 Normal >=60 [facility] Comment on above: Performed By: #### C MP, BNP #### [facility] [address] [address] [address] Destinee Billingsley Globulin (S) [Mass/Vol] 2.9 g/dL Normal [facility] Comment on above: Performed By: #### C MP, BNP #### [facility] [address] [address] [address] Destinee Billingsley Glucose [Mass/Vol] 120 mg/dL Critically high 74-106 [facility] Comment on above: Performed By: #### C MP, BNP #### [facility] [address] [address] [address] Destinee Billingsley Potassium [Moles/Vol] 3.4 mmol/L Critically low 3.5-5.1 [facility] Comment on above: Performed By: #### C MP, BNP #### [facility] [address] [address] [address] Destinee Billingsley Protein [Mass/Vol] 6.4 g/dL Normal 6.4-8.2 [facility] Comment on above: Performed By: #### C MP, BNP #### [facility] [address] [address] [address] Destinee Billingsley Sodium [Moles/Vol] 140 mmol/L Normal 136-145 [facility] Comment on above: Performed By: #### C MP, BNP #### [facility] [address] [address] [address] Destinee Billingsley Urea nitrogen [Mass/Vol] 14.0 mg/dL Normal 7.0-18.0 [facility] Comment on above: Performed By: #### C MP, BNP #### [facility] [address] [address] [address] Destinee Billingsley Urea nitrogen/Creatinin e [Mass ratio] 15.7 mg/mg Normal [facility] Comment on above: Performed By: #### C MP, BNP #### [facility] [address] [address] [address] Destinee Billingsley HEMOGLOBINon 02-08-2022 Hemoglobin (Bld) [Mass/Vol] 14.1 g/dL Normal 14.0-18.0 [facility] Comment on above: Performed By: #### C MP, BNP #### [facility] [address] [place], [place] [address] Dr. Destinee Billingsley XR CHEST 2 Von [...] by: BUTCH FUCHS Date: 2022-01-16 14:44 Normal [facility] Cardiovascular Lab Reporton 01-05-2021 Cardiovascular Lab Report [facility] Patient Name: [facility] MR #: [id number] Physician: Kiko Barr Department of Mili Drummond Medicine Service Date: 01/05/2021 Division of Birthdate: 1975 Cardiology Room #: [facility] Cardiovascular Services [place] [address] Cardiovascular Laboratory Report INDICATION: The patient is [...] signed informed consent. He was brought to labor relations analyst in a fasting state. The left wrist area was prepped and draped in usual fashion. Modified Matthew's test was favorable. Access in the left radial artery was obtained using micropuncture technique. A 6-Mauritanian x 11 cm hydrophilic sheath was advanced, verapamil was given through the sheath and heparin was administered intravenously. Bilateral selective coronary angiography was then performed using a 6-Mauritanian JR4 diagnostic catheter for engagement of the right coronary artery following which intracoronary nitroglycerin was administered after the initial angiogram was obtained. Then the catheter was then exchanged over wire to a 6-Mauritanian JL3.5 diagnostic catheter, which was used to [...] by: Kiko Drummond M.D. 01/08/2021 09:10 A iKko Drummond M.D. Date Dict: 01/05/2021/04:23 P/Kiko Drummond M.D. Date Trans: 01/05/2021 04:52 P/mmo [id number] cc: Arlyn Pineda M.D. [address], [place] [address] [facility] Vital Signs Date Time Vital Sign Value Performing Clinician Faci lity 05-19-2024 10:32-0400 Blood Pressure Location Lupillo NILL [facility] 05-19-2024 10:32-0400 Diastolic blood pressure 85 mm[Hg] Lupillo NILL [facility] 05-19-2024 10:32-0400 Heart rate 65 /min Lupillo NILL [facility] 05-19-2024 10:32-0400 Respiratory rate 16 /min Lupillo NILL [facility] 05-19-2024 10:32-0400 Systolic blood pressure 130 mm[Hg] Lupillo NILL [facility] Encounters Encounter Date Encounter Type Care Provider Facility Start: 05-19-2024 End: 05-19-2024 ambulatory Lupillo R NILL Facility: [facility] Start: 05-19-2024 End: 05-19-2024 Patient encounter procedure Lupillo R NILL [facility] Start: 05-15-2024 ambulatory Lupillo SHINE Facility:[facility] Start: 05-14-2024 ambulatory Lupillo SHINE Facility:[facility] Start: 12-29-2023 Letter encounter [facility] Start: 09-22-2023 Letter encounter [facility] Start: 12-27-2022 End: 12-28-[address] ARLYN PINEDA . Facility: Start: 12-23-2022 Letter encounter [facility] Start: 05-11-2022 Encounter for genera l adult medical examination without abnormal findings DR ARLYN PINEDA . [facility] Start: 05-04-2022 End: 05-05-[address] ARLYN PINEDA . Facility: Start: 05-04-2022 End: 05-05-2022 Encounter for general adult medical examination without abnormal findings DR ARLYN PINEDA . Facility:[facility] Start: 03-14-2022 End: 03-15-[address] ARLYN PINEDA . Facility:[facility] Start: 03-13-2022 End: 03-14-[address] ARLYN PINEDA . Facility:[facility] Start: 03-06-2022 End: 03-07-[address] ARLYN PINEDA . Facility:[facility] Start: 02-08-2022 End: 02-09-[address] ARLYN PINEDA . Facility:[facility] Start: 01-16-2022 End: 01-17-[address] ARLYN PINEDA . Facility:[facility] Start: 01-05-2021 End: 01-06-2021 ambulatory PROVIDER UNKNOWN Facility:[facility] Procedures Date Procedure Procedure Detail Performing Clinician Start: 05-04-[address] ZACHARY PINEDA . Comment on above: Performed By: #### C MP, BNP #### [facility] [address] [place] [address] Dr. Destinee Billingsley Arthroscopy of knee Lupillo NILL Cardiac catheterization Virgil ael NILL carpal tunnel Lupillo NILL Colonoscopy Lupillo NILL Repair of musculoten dinous cuff of shoulder Lupillo NILL Plan of Treatment Date Care Activity Detail Author Start: 04-26-2023 Influenza vaccination Influenza Vacc ine (#1) [facility] Start: 2023 Shingles (RZV) Vacci ne (1 of 2) Shingles (RZV) Vaccine (1 of 2) [facility] Start: 2018 Screening for malign ant neoplasm of colon [facility] Start: 2008 Lipid panel Cholesterol [facility] Start: 1992 Hepatitis A (HAV) Va ccine (optional start 19+ years) Hepatitis A (HAV) Vaccine (optional start 19+ years) [facility] Start: 1991 Hepatitis C screening Hepatitis C [facility] Start: 1991 Tetanus + diphtheria + acellular pertussis vaccine (product) Tdap Booster [facility] Start: 1988 HIV screening [facility] Start: 1975 COVID-19 Vaccine (#1) COVID-19 Vacci ne (#1) [facility] Start: 1975 Hepatitis B vaccination Hepati tis B (HBV) Vaccine (1 of 3 - 3-dose series) [facility] Start: 1975 Screening for malign ant neoplasm of colon Colonoscopy [facility] Immunizations Immunization Date Immunization Notes Care Provider Fa cili 06-01-2022 SARS-CoV-2 (COVID-19 ) [id number] Lupillo PHILLIPSKevin [facility] 03-15-2022 SARS-CoV-2 mRNA (llnwfynogcn-jrqo-cmylg se) vaccine Lupillo Prevently [facility] 12-24-2020 SARS-CoV-2 (COVID-19 ) mRNA BNT-162b2 vax [employer] [facility] Comment on above: Result Comment: 2023: [id number] 12-03-2020 SARS-CoV-2 (COVID-19 ) mRNA BNT-162b2 vax [employer] [facility] Payers Date Payer Category Payer Unknown [id number] 1975 Unknown [id number] [id number] 1975 Unknown [id number] 2.16.84 [id number] 1975 Unknown [id number] 2.16.84 [id number] 1975 Unknown [id number] 2.16.84 [id number] 1975 Unknown [id number] 2.16.84 [id number] 1975 Unknown [id number] 2.16.84 [id number] 1975 Unknown [id number] 2.16.84 [id number] 1975 Unknown [id number] 2.16.84 [id number] 1975 Unknown [id number] 2.16.8 [id number] 1975 Unknown [id number] 2.16.8 [id number] 1961 Unknown [id number] Social History Date Type Detail Facility Start: 07-15-2012 [facility] of tobacco use [facility] Start: 07-15-2012 Cigarettes smoked current (pack per day) - Reported 1 [facility] Start: 07-15-2012 Tobacco use and exposure Smokeless tobacco non-user [facility] Start: 05-28-2014 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 (finding) [facility] Start: 1975 [facility] Gender identity Not on file [facility] Start: 05-19-2024 Tobacco smoking status Ex-smoker (fi nding) [facility] Tobacco smoking status Never [facility] Functional Status Date Assessment Result Facility 05-19-2024 Functional Status N/A [facility] Clinical Note 05-19-2024 Note Date & Type Note Facility 05-19-2024 Note General Surgery Offi ce/Clinic Note Chief Complaint consultation for positive occult stool HPI Staff 49 year old male presents on consultation from Dr. Pineda for positive occult stool. Denies abdominal or rectal pain. No rectal bleeding or change in bowel habits. Denies nausea or vomiting. No unexplained weight loss. Patient had a previous colonoscopy greater than 30 years ago; reports this was normal. Sister with history of colon cancer, diagnosed age early 40's. History of Present Illness 49 yo male with h/o CAD, htn, hyperlipidemia, DMII, COPD, referred for positive fecal occult blood test; patient denies change in bms or blood in stools, no abd complaints; no abd operations, remote colonoscopy over 20 years ago, reportedly wnl; on baby asa daily, no NSAID use; no tobacco use; no fmhx of GI malignancy or IBD. Review of Systems PHQ Score Initial Depression Screen Score: 0 SCORE ROS - Provider Constitutional: no fever, no sweats, no weight loss. Eyes: no glasses, no blurred vision, no visual loss. ENMT: no dentures, no hoarseness, no swallowing difficulties, no hearing loss, no ear infection(s), no nose bleeds. Cardiovascular: normal blood pressure, no chest pain, regular heartbeat, no heart murmur. Respiratory: no shortness of breath, no cough, no asthma, no wheezing. Gastrointestinal: no nausea, no vomiting, no diarrhea, no constipation, no blood in stool, no change in bowel habits, no abdominal pain, no hepatitis. Genitourinary: no kidney stones, no urine infection, no dysuria. Musculoskeletal: no pain, no weakness. Skin: no changing moles, no rash, no skin lumps. Neurologic: no seizures, no epilepsy, no headache. Psychiatric: no emotional or psychiatric problem. Heme/Lymph: no bleeding problems, no anemia, no blood clots, no transfusions. Allergy/Immunologic: no swollen lymph nodes/glands, no IV drug abuse. Other: Additional ROS info: Except as noted in the above Review of Systems and in the History of Present Illness, all other systems have been reviewed and are negative or noncontributory. Physical Exam Vitals & Measurements HR: 65(Peripheral) RR: 16 BP: 130/85 HT: 69 in HT: 175.2 cm WT: 94.7 kg WT: 208.34 lb BMI: 30.85 HEENT: normal conjunctiva, sclera clear, no scleral icterus, EOM intact, PERRLA, oral mucosa moist without lesions. Neck: trachea midline, no mass, symmetric, no thyromegaly or nodules, no adenopathy Respiratory: lungs CTA, respirations non labored. Cardiovascular: regular rate and rhythm, no murmur, no pedal edema or varicosities. Gastrointestinal: soft, non distended, no tenderness, no masses, no palpable hernias, diastasis recti no, no hepatosplenomegaly; normal bs Lymphatic: no cervical adenopathy, no supraclavicular adenopathy. Musculoskeletal: normal gait, digits and nails without infection, nodes, cyanosis, clubbing. Skin: no rashes, no lesions, no ulcers, no subcutaneous nodules, induration. Psychiatric/Neuro: oriented to time, place, person, judgement normal, affect appropriate for age, insight intact, no focal deficits. Tests: labs reviewed, , review of old records completed , Discussed surgical options, risks, and possible complications with patient. Assessment/Plan 1. Positive fecal occult blood test (R19.5: Other fecal abnormalities) plan colonoscopy under anesthesia, informed consent obtained. Follow-up No qualifying data available Problem List/Past Medical History Ongoing BMI 30.0-30.9,adult Chronic obstructive pulmonary disease Coronary arteriosclerosis Diabetes Dyshidrotic eczema Family history of colon cancer Gout Hyperlipidemia Hypertension Hypertriglyceridemia Juvenile osteochondrosis of upper extremity Left ventricular systolic dysfunction Obesity due to excess calories Occult blood positive stool Positive fecal occult blood test Seasonal allergic rhinitis Tricuspid valve regurgitation Historical Acid reflux HTN - Hypertension Multiple environmental allergies Procedure/Surgical History Arthroscopy of knee, Cardiac catheterization, carpal tunnel, Colonoscopy, Rotator cuff repair. Medications acetaminophen-hydrocodone 325 mg-5 mg oral tablet, 1 tab(s), Oral, QID, PRN allopurinol 100 mg Tab, 100 mg= 1 tab(s), Oral, Daily aspirin 81 mg Oral EC Tab, 81 mg= 1 tab(s), Oral, Daily atorvastatin 40 mg Tab, 40 mg= 1 tab(s), Oral, Daily cetirizine 10 mg Tab, 10 mg= 1 tab(s), Oral, Daily Dupixent Pre-filled Pen 300 mg/2 mL subcutaneous solution, 300 mg, SubCutaneous, q2wk irbesartan 150 mg Tab, 150 mg= 1 tab(s), Oral, Daily metformin 500 mg Tab, 250 mg= 0.5 tab(s), Oral, BID metoprolol succinate 50 mg ER Tab, 50 mg= 1 tab(s), Oral, Daily Multi Vitamins oral tablet, 1 tab(s), Oral, Daily Nexium 40 mg Cap-EC, 40 mg= 1 cap(s), Oral, Daily Singulair 10 mg Tab, 10 mg= 1 tab(s), Oral, Daily Ventolin HFA 90 mcg/inh Aerosol-Adpt, 1 puff(s), Inhalation, q4hr, PRN Allergies Demerol (Patient reported problems) Latex ( (more content not included)... [facility] Comment on above: Result Comment: Elec tronically Signed By: RL JOSHI, Lupillo Newton\Date and Time Signed: 05/19/24 11:14 EDT Evaluation + Plan note Note Date & Type Note Facility Evaluation + Plan note No data available for this section [facility] Discharge instructions Note Date & Type Note Facility Hospital Discharge instructions No data available for this section [facility] Progress note Note Date & Type Note Facility Progress note No data available for this section [facility] Summary Purpose Family History No Family History Records FoundNo Family History Records Found No data available for this section No Family History Records Found Advance Directives No Advanced Directives Records FoundNo Advanced Directives Records FoundNo Advanced Directives Records Found Additional Source Comments (unrecognized sect ion and content) No Status Records FoundNo Status Records FoundNo Status Records Found INFORMATION SOURCE (unrecogn ized section and content) DATE CREATED AUTHOR 01/16/2021 [facility] DATE CREATED AUTHOR AUTHOR'S ORGANIZ ATION 01/03/2023 [facility] DATE CREATED AUTHOR AUTHOR'S ORGANIZ ATION 05/21/2024 [facility] Patient Care team informatio n (unrecognized section and content) Personnel Name: Arlyn Pineda MD Address: Address: [address] [place] [address] FOR RECORDS PERTAINING TO PATIENTS WHO ARE [...] CLINICAL RECORDS. [facility]. provides no warranty or guarantee of the accuracy or completeness of information in this document.
== END 2024-05-26 14:55 | disposition home or self-care (01) ==
LOC: PST 14:54
PROVIDERS: PCP Family Medicine; Visit Provider Surgery
DX: Z01.818 Encounter for other preprocedural examination (principal); R19.5 Other fecal abnormalities

== ENCOUNTER 2024-06-03 07:25 | Day surgery (SDC) | payer BC, SELFPAY ==
--- NOTE | 2024-06-03 | OP_ITS ---
OPERATION DATE: 06/03/2024 PREOPERATIVE DIAGNOSIS: Positive fecal occult blood test. POSTOPERATIVE DIAGNOSIS: 3 mm sigmoid polyp as well as mild sigmoid diverticulosis. PROCEDURE: Colonoscopy to cecum with cold forceps polypectomy x1 for a 3 mm sigmoid polyp. SURGEON: Joss Cramer M.D. ANESTHESIA: Monitored anesthesia care. ESTIMATED BLOOD LOSS: Less than 1 mL. INDICATIONS AND CONSENT: Patient is a 49-year-old male presents for evaluation of positive fecal occult blood test. Indications, risks, benefits, alternatives of proceeding with colonoscopy were explained extensively to the patient, including the risks of bleeding, colon perforation or anesthetic complications. All of his questions were answered. Informed consent was obtained. PROCEDURE: Patient brought to the operating room, placed in the left lateral decubitus position. Monitored anesthesia care was provided. Rectal exam was performed which showed no masses or blood. The scope was inserted into the anal canal. Under direct visualization was advanced. It was advanced to the cecum where cecal markings were clearly identified. There was noted to be a good prep. Upon withdrawal of the scope, mucosal surfaces were carefully examined. There were no mass lesions or inflammatory changes. Within the proximal sigmoid, there was noted to be a 3 mm sessile polyp that was removed with cold biopsy forceps with good hemostasis. There was mild sigmoid diverticulosis without inflammatory changes or scarring. The scope was retroflexed in the anal canal. There was no significant hemorrhoidal disease. The scope was then withdrawn. Patient tolerated procedure well, was sent to recovery room in good condition. Follow up surveillance colonoscopy should be in five years, but may change depending on the pathology report. CC: Mili Henry
--- OUTSIDE RECORDS SUMMARY | 2024-06-03 07:28 | XMS_ITS | CCD ---
Author Organization [facility] CliniSytn Care Team Providers Care [employer] Rep[employer] Name Role Phone UNKNOWN, PROVIDER Admitting Unavailable [...] Unavailable HOY ., DR STODDARD Consulting Unavailable GRANTS, DR BUTCH Corcoran Consulting Unavailable Christay Arlyn Primary Care Physician [phone] Lupillo SHINE Attending Unavailable Arlyn Pineda Referring Unavailable Allergies Allergy Classification Reported Allergen(s) Allergy Type Date of Onset Reaction(s) Facility Acetaminophen / oxyCODONE (1 source) Acetaminophen / oxyCODONE Drug Allergy 01-06-20 [facility] Repository Latex (1 source) Latex Substance Allergy 01-06-20 [facility] Repository NSAIDs (1 source) Ketorolac Drug Allergy 01-06-20 [facility] Repository Opioid Agonists (1 source) traMADol Drug Allergy 01-06-20 21 [facility] Repository (4 sources) Acetaminophen / oxyCODONE; Translations: [Percocet] Drug Allergy 01-14-20 12 [facility] (5 sources) Latex; Translations: [Latex] Propensity to adverse reactions to drug 01-14-20 12 Blister (morphologic abnormality) [facility] Work Phone: (5 sources) nickel sulfate; Translations: [Nickel] Drug Allergy 01-14-20 12 Blister (morphologic abnormality) [facility] (3 sources) traMADol Drug Allergy 01-14-20 12 [facility] (1 source) Ketorolac Drug Allergy 11-09-19 16 [facility] (1 source) Latex Drug allergy (disorder) 11-02-19 16 [facility] (1 source) Leucine Drug Allergy 11-09-19 16 [facility] (1 source) methylparaben Drug Allergy 11-18-19 16 [facility] (2 sources) Ketorolac; Translations: [ketorolac] Drug Allergy Patient reported problems (finding) [facility] (2 sources) Meperidine; Translations: [meperidine] Drug Allergy Patient reported problems (finding) [facility] Medications Current Medications Medication Drug Class(es) Dates [...] disease (5 sources) Atherosclerotic heart disease of [place] coronary artery without angina pectoris; Translations: [Coronary [...] Team Attending Physician - RL JOSHI, Lupillo uRiz Primary Care Physician - Miriam JOSHI, Arlyn [...] for choosing us for your care. Normal [facility] INSULINon 12-28-2022 Insulin 45.9 uIU/mL Critically high 2.6-24.9 [facility] Comment on above: Performed By: #### I NSULIN #### [facility] [address] [place] [address] Dr. Destinee Billingsley BNPon 12-27-2022 Natriuretic peptide B (Bld) [Mass/Vol] 158.0 pg/mL Normal <=900.0 [facility] Comment on above: Performed By: #### C MP, BNP #### [facility] [address] [place] [address] Dr. Destinee Billingsley CBC AUTO DIFFon 12-27-2022 BASO # 0.1 103/ul Normal 0.0-0.1 [facility] Comment on above: Performed By: #### C BC #### [facility] [address] [place] [address] Dr. Destinee Billingsley Basophils/100 WBC (Bld) 1.3 % Normal 0.2-2.0 [facility] Comment on above: Performed By: #### C BC #### [facility] [address] [place] [address] Dr. Destinee Billingsley EO # 0.2 103/ul Normal 0.0-0.7 [facility] Comment on above: Performed By: #### C BC #### [facility] [address] [place] [address] Dr. Destinee Billingsley Eosinophils/100 WBC (Bld) 3.1 % Normal 0.9-7.0 [facility] Comment on above: Performed By: #### C BC #### [facility] [address] [place] [address] Dr. Destinee Billingsley Erythrocyte distribution width (RBC) [Ratio] 12.8 % Normal 11.0-15.0 [facility] Comment on above: Performed By: #### C BC #### [facility] [address] [place] [address] Dr. Destinee Billingsley Hematocrit (Bld) [Volume fraction] 40.7 % Critically low 42.0-54.0 [facility] Comment on above: Performed By: #### C BC #### [facility] [address] [place] [address] Dr. Destinee Billingsley Hemoglobin (Bld) [Mass/Vol] 14.3 g/dL Normal 14.0-18.0 [facility] Comment on above: Performed By: #### C BC #### [facility] [address] [place] [address] Dr. Destinee Billingsley IG # 0.04 10e3/ul Critically high 0.00-0.03 [facility] Comment on above: Performed By: #### C BC #### [facility] [address] [place] [address] Dr. Destinee Billingsley IG % 0.5 % Normal 0.0-0.5 [facility] Comment on above: Performed By: #### C BC #### [facility] [address] [place] [address] Dr. Destinee Billingsley LYMPH # 1.7 103/ul Normal 1.2-3.8 [facility] Comment on above: Performed By: #### C BC #### [facility] [address] [place] [address] Dr. Destinee Billingsley Lymphocytes/100 WBC (Bld) 22.3 % Normal 20.5-60.0 [facility] Comment on above: Performed By: #### C BC #### [facility] [address] [place] [address] Dr. Destinee Billingsley MANUAL DIFF REQ NO Normal [facility] Comment on above: Performed By: #### C BC #### [facility] [address] [place] [address] Dr. Destinee Billingsley MCH (RBC) [Entitic mass] 32.6 pg Normal 25.9-34.0 [facility] Comment on above: Performed By: #### C BC #### [facility] [address] [place] [address] Dr. Destinee Billingsley MCHC (RBC) [Mass/Vol] 35.1 g/dL Normal 29.9-35.2 [facility] Comment on above: Performed By: #### C BC #### [facility] [address] [place] [address] Dr. Destinee Billingsley MCV (RBC) [Entitic vol] 92.9 fL Normal 80.0-94.0 [facility] Comment on above: Performed By: #### C BC #### [facility] [address] [address] [address] Destinee Billingsley MONO # 0.9 103/ul Critically high 0.3-0.8 [facility] Comment on above: Performed By: #### C BC #### [facility] [address] [address] [address] Destinee Billingsley Monocytes/100 WBC (Bld) 11.1 % Normal 1.7-12.0 [facility] Comment on above: Performed By: #### C BC #### [facility] [address] [place] [address] Dr. Destinee Billingsley NEUT # 4.7 103/ul Normal 1.4-6.5 [facility] Comment on above: Performed By: #### C BC #### [facility] [address] [place] [address] Dr. Destinee Billingsley Neutrophils/100 WBC (Bld) 61.7 % Normal 43.0-75.0 [facility] Comment on above: Performed By: #### C BC #### [facility] [address] [place] [address] Dr. Destinee Billingsley Platelet mean volume (Bld) [Entitic vol] 9.7 fL Normal 9.5-13.5 [facility] Comment on above: Performed By: #### C BC #### [facility] [address] [place] [address] Dr. Destinee Billingsley PLT 259 103/ul Normal 150-450 [facility] Comment on above: Performed By: #### C BC #### [facility] [address] [place] [address] Dr. Destinee Billingsley RBC 4.38 106/ul Critically low 4.70-6.10 [facility] Comment on above: Performed By: #### C BC #### [facility] [address] [place] [address] Dr. Destinee Billingsley WBC 7.7 103/ul Normal 4.0-11.0 [facility] Comment on above: Performed By: #### C BC #### [facility] [address] [address] [address] Destinee Billingsley FREE THYROXINE INDEX T7on FTI 2.40 Normal 1.30-4.50 [facility] Comment on above: Performed By: #### C MP, BNP #### [facility] [address] [place] [address] Dr. Destinee Billingsley T3U 32.0 % Critically low 33.0-40.0 [facility] Comment on above: Performed By: #### C MP, BNP #### [facility] [address] [place] [address] Dr. Destinee Billingsley T4 [Mass/Vol] 7.50 ug/dL Normal 4.50-12.10 [facility] Comment on above: Performed By: #### C MP, BNP #### [facility] [address] [address] [address] Destinee Billingsley GLYCOHEMOGLOBIN A1Con 2022 ADA RECOMMENDATION SEE BELOW Normal [facility] Comment on above: Result Comment: ADA RECOMMENDED LIMIT 4.0 - 6.0 ADA THERAPEUTIC TARGET < 7.0 ACTION SUGGESTED > 7.0 Performed By: #### A 1C #### [facility] [address] [place] [address] Dr. Destinee Billingsley Glucose [Mass/Vol] 148 mg/dL Critically high 74-106 [facility] Comment on above: Performed By: #### A 1C #### [facility] [address] [address] [address] Destinee Billingsley Performed By: #### C MP, BNP #### [facility] [address] [place] [address] Dr. Destinee Billingsley HbA1c (Bld) [Mass fraction] 6.8 % Critically high 4.5-6.2 [facility] Comment on above: Performed By: #### A 1C #### [facility] [address] [place] [address] Dr. Destinee Billingsley IRONon 12-27-2022 Iron [Mass/Vol] 90.0 ug/dL Normal 65.0-175.0 [facility] Comment on above: Performed By: #### I EMMA, VITAD #### [facility] [address] [place] [address] Dr. Destinee Billingsley MAGNESIUMon 12-27-2022 Magnesium [Mass/Vol] 1.5 mg/dL Critically low 1.8-2.4 [facility] Comment on above: Performed By: #### C MP, BNP #### [facility] [address] [place] [address] Dr. Destinee Billingsley PROF 14(COMP METB)on 023 Albumin [Mass/Vol] 3.4 g/dL Normal 3.4-5.0 [facility] Comment on above: Performed By: #### C MP, BNP #### [facility] [address] [place] [address] Dr. Destinee Billingsley Albumin/Globulin [Mass ratio] 1.0 {ratio} Normal [facility] Comment on above: Performed By: #### C MP, BNP #### [facility] [address] [place] [address] Dr. Destinee Billingsley ALP [Catalytic activity/Vol] 86 U/L Normal 46-116 [facility] Comment on above: Performed By: #### C MP, BNP #### [facility] [address] [place] [address] Dr. Destinee Billingsley ALT [Catalytic activity/Vol] 61 U/L Normal 16-63 [facility] Comment on above: Performed By: #### C MP, BNP #### [facility] [address] [place] [address] Dr. Destinee Billingsley Anion gap [Moles/Vol] 13.5 mmol/L Normal [facility] Comment on above: Performed By: #### C MP, BNP #### [facility] [address] [place] [address] Dr. Destinee Billingsley AST [Catalytic activity/Vol] 41 U/L Critically high 15-37 [facility] Comment on above: Performed By: #### C MP, BNP #### [facility] [address] [place] [address] Dr. Destinee Billingsley Bilirubin [Mass/Vol] 0.6 mg/dL Normal 0.2-1.0 [facility] Comment on above: Performed By: #### C MP, BNP #### [facility] [address] [place] [address] Dr. Destinee Billingsley Calcium [Mass/Vol] 8.9 mg/dL Normal 8.5-10.1 [facility] Comment on above: Performed By: #### C MP, BNP #### [facility] [address] [place] [address] Dr. Destinee Billingsley Chloride [Moles/Vol] 104 mmol/L Normal 98-107 [facility] Comment on above: Performed By: #### C MP, BNP #### [facility] [address] [place] [address] Dr. Destinee Billingsley CO2 [Moles/Vol] 24.6 mmol/L Normal 21.0-32.0 [facility] Comment on above: Performed By: #### C MP, BNP #### [facility] [address] [place] [address] Dr. Destinee Billingsley Creatinine [Mass/Vol] 0.76 mg/dL Normal 0.70-1.30 [facility] Comment on above: Performed By: #### C MP, BNP #### [facility] [address] [place] [address] Dr. Destinee Billingsley EGFR-AF TANZANIAN >60 Normal >=60 [facility] Comment on above: Performed By: #### C MP, BNP #### [facility] [address] [place] [address] Dr. Destinee Billingsley EGFR-NON AF TANZANIAN >60 Normal >=60 [facility] Comment on above: Performed By: #### C MP, BNP #### [facility] [address] [place] [address] Dr. Destinee Billingsley Globulin (S) [Mass/Vol] 3.4 g/dL Normal [facility] Comment on above: Performed By: #### C MP, BNP #### [facility] [address] [place] [address] Dr. Destinee Billingsley Potassium [Moles/Vol] 4.1 mmol/L Normal 3.5-5.1 [facility] Comment on above: Performed By: #### C MP, BNP #### [facility] [address] [place] [address] Dr. Destinee Billingsley Protein [Mass/Vol] 6.8 g/dL Normal 6.4-8.2 [facility] Comment on above: Performed By: #### C MP, BNP #### [facility] [address] [place] [address] Dr. Destinee Billingsley Sodium [Moles/Vol] 138 mmol/L Normal 136-145 [facility] Comment on above: Performed By: #### C MP, BNP #### [facility] [address] [place] [address] Dr. Destinee Billingsley Urea nitrogen [Mass/Vol] 13.0 mg/dL Normal 7.0-18.0 [facility] Comment on above: Performed By: #### C MP, BNP #### [facility] [address] [place] [address] Dr. Destinee Billingsley Urea nitrogen/Creatinin e [Mass ratio] 17.1 mg/mg Normal [facility] Comment on above: Performed By: #### C MP, BNP #### [facility] [address] [place] [address] Dr. Destinee Billingsley TSHon 12-27-2022 TSH 1.711 uIU/mL Normal 0.358-3.740 [facility] Comment on above: Performed By: #### C MP, BNP #### [facility] [address] [place] [address] Dr. Destinee Billingsley VITAMIN D 25 OHon 12-27-2022 VIT D 25-OH 69.9 ng/mL Normal [facility] Comment on above: Performed By: #### I EMMA, VITAD #### [facility] [address] [place] [address] Dr. Destinee Billingsley VIT D RANGES SEE BELOW Normal [facility] Comment on above: Result Comment: <20 ng/mL Vit D deficient 20 - <30 ng/mL Vit D insufficient 30 - 100 ng/mL Vit D sufficient >100 ng/mL Potential Toxicity Performed By: #### I EMMA, VITAD #### [facility] [address] [place] [address] Dr. Destinee Billingsley INSULINon 05-05-2022 Insulin 46.3 uIU/mL Critically high 2.6-24.9 [facility] Comment on above: Performed By: #### C MP, BNP #### [facility] [address] [place] [address] Dr. Destinee Billingsley TESTOSTERONE, TOTALon 2021 Testosterone [Mass/Vol] 782 ng/dL Normal 264-916 [facility] Comment on above: Result Comment: Adul t male reference interval is based on a population of healthy nonobese males (BMI <30) between 19 and 39 years old. jae Monroy.al. JCEM 2017,102;[id number]. PMID: [id number]. Performed By: #### C MP, BNP #### [facility] [address] [place] [address] Dr. Destinee Billingsley CBC AUTO DIFFon 05-04-2022 BASO # 0.1 103/ul Normal 0.0-0.1 [facility] Comment on above: Performed By: #### C BC #### [facility] [address] [place] [address] Dr. Destinee Billingsley Basophils/100 WBC (Bld) 1.9 % Normal 0.2-2.0 [facility] Comment on above: Performed By: #### C BC #### [facility] [address] [place] [address] Dr. Destinee Billingsley EO # 0.2 103/ul Normal 0.0-0.7 [facility] Comment on above: Performed By: #### C BC #### [facility] [address] [place] [address] Dr. Destinee Billingsley Eosinophils/100 WBC (Bld) 3.3 % Normal 0.9-7.0 [facility] Comment on above: Performed By: #### C BC #### [facility] [address] [place] [address] Dr. Destinee Billingsley Erythrocyte distribution width (RBC) [Ratio] 12.2 % Normal 11.0-15.0 [facility] Comment on above: Performed By: #### C BC #### [facility] [address] [place] [address] Dr. Destinee iBllingsley Hematocrit (Bld) [Volume fraction] 42.8 % Normal 42.0-54.0 [facility] Comment on above: Performed By: #### C BC #### [facility] [address] [place] [address] Dr. Destinee Billingsley Hemoglobin (Bld) [Mass/Vol] 14.6 g/dL Normal 14.0-18.0 [facility] Comment on above: Performed By: #### C BC #### [facility] [address] [place] [address] Dr. Destinee Billingsley IG # 0.02 10e3/ul Normal 0.00-0.03 [facility] Comment on above: Performed By: #### C BC #### [facility] [address] [place] [address] Dr. Destinee Billingsley IG % 0.3 % Normal 0.0-0.5 [facility] Comment on above: Performed By: #### C BC #### [facility] [address] [place] [address] Dr. Destinee Billingsley LYMPH # 1.7 103/ul Normal 1.2-3.8 [facility] Comment on above: Performed By: #### C BC #### [facility] [address] [place] [address] Dr. Destinee Billingsley Lymphocytes/100 WBC (Bld) 26.4 % Normal 20.5-60.0 [facility] Comment on above: Performed By: #### C BC #### [facility] [address] [place] [address] Dr. Destinee Billingsley MANUAL DIFF REQ NO Normal [facility] Comment on above: Performed By: #### C BC #### [facility] [address] [place] [address] Dr. Destinee Billingsley MCH (RBC) [Entitic mass] 32.4 pg Normal 25.9-34.0 [facility] Comment on above: Performed By: #### C BC #### [facility] [address] [place] [address] Dr. Destinee Billingsley MCHC (RBC) [Mass/Vol] 34.1 g/dL Normal 29.9-35.2 [facility] Comment on above: Performed By: #### C BC #### [facility] [address] [place] [address] Dr. Destinee Billingsley MCV (RBC) [Entitic vol] 94.9 fL Critically high 80.0-94.0 [facility] Comment on above: Performed By: #### C BC #### [facility] [address] [place] [address] Dr. Destinee Billingsley MONO # 0.7 103/ul Normal 0.3-0.8 [facility] Comment on above: Performed By: #### C BC #### [facility] [address] [place] [address] Dr. Destinee Billingsley Monocytes/100 WBC (Bld) 10.4 % Normal 1.7-12.0 [facility] Comment on above: Performed By: #### C BC #### [facility] [address] [place] [address] Dr. Destinee Billingsley NEUT # 3.6 103/ul Normal 1.4-6.5 [facility] Comment on above: Performed By: #### C BC #### [facility] [address] [place] [address] Dr. Destinee Billingsley Neutrophils/100 WBC (Bld) 57.7 % Normal 43.0-75.0 [facility] Comment on above: Performed By: #### C BC #### [facility] [address] [place] [address] Dr. Destinee Billingsley Platelet mean volume (Bld) [Entitic vol] 10.2 fL Normal 9.5-13.5 [facility] Comment on above: Performed By: #### C BC #### [facility] [address] [place] [address] Dr. Destinee Billingsley PLT 253 103/ul Normal 150-450 [facility] Comment on above: Performed By: #### C BC #### [facility] [address] [address] [address] Destinee Billingsley RBC 4.51 106/ul Critically low 4.70-6.10 [facility] Comment on above: Performed By: #### C BC #### [facility] [address] [address] [address] Destinee Billingsley WBC 6.3 103/ul Normal 4.0-11.0 [facility] Comment on above: Performed By: #### C BC #### [facility] [address] [place] [address] Dr. Destinee Billingsley GLYCOHEMOGLOBIN A1Con 2021 ADA RECOMMENDATION SEE BELOW Normal [facility] Comment on above: Result Comment: ADA RECOMMENDED LIMIT 4.0 - 6.0 ADA THERAPEUTIC TARGET < 7.0 ACTION SUGGESTED > 7.0 Performed By: #### A 1C #### [facility] [address] [place] [address] Dr. Destinee Billingsley Glucose [Mass/Vol] 131 mg/dL Normal [facility] Comment on above: Performed By: #### A 1C #### [facility] [address] [place] [address] Dr. Destinee Billingsley HbA1c (Bld) [Mass fraction] 6.2 % Normal 4.5-6.2 [facility] Comment on above: Performed By: #### A 1C #### [facility] [address] [place] [address] Dr. Destinee Billingsley LIPID PROFILEon 05-04-2022 CHOL-HDL RATIO NORM SEE BELOW Normal [facility] Comment on above: Result Comment: 3.3 - 4.4 LOW RISK 4.4 - 7.1 AVERAGE RISK 7.1 - 11.0 MODERATE RISK >11.0 HIGH RISK Performed By: #### C MP, BNP #### [facility] [address] [place] [address] Dr. Destinee Billingsley Cholesterol [Mass/Vol] 130 mg/dL Normal <=200 [facility] Comment on above: Performed By: #### C MP, BNP #### [facility] [address] [address] [address] Destinee Billingsley Cholesterol in HDL [Mass/Vol] 36 mg/dL Critically low 40-60 [facility] Comment on above: Performed By: #### C MP, BNP #### [facility] [address] [address] [address] Destinee Billingsley Cholesterol in LDL [Mass/Vol] 68.2 mg/dL Normal [facility] Comment on above: Performed By: #### C MP, BNP #### [facility] [address] [address] [address] Destinee Billingsley Cholesterol.total/ Cholesterol in HDL [Mass ratio] 3.6 {ratio} Normal [facility] Comment on above: Performed By: #### C MP, BNP #### [facility] [address] [place] [address] Dr. Destinee Billingsley HDL NORMAL > or = 60 mg/dl - LO W CARDIOVASCULAR RISK <40 mg/dl - HIGH CARDIOVASCULAR RISK Normal [facility] Comment on above: Performed By: #### C MP, BNP #### [facility] [address] [place] [address] Dr. Destinee Billingsley LDL CALC NORMAL SEE BELOW Normal [facility] Comment on above: Result Comment: <100 mg/dl OPTIMAL 100 - 129 mg/dl NEAR OR ABOVE OPTIMAL 130 - 159 mg/dl BORDERLINE HIGH 160 - 189 mg/dl HIGH >190 mg/dl VERY HIGH Performed By: #### C MP, BNP #### [facility] [address] [address] [address] Destinee Billingsley Triglyceride [Mass/Vol] 129 mg/dL Normal <=150 [facility] Comment on above: Performed By: #### C MP, BNP #### [facility] [address] [place] [address] Dr. Destinee Billingsley VLDL CALC 25.8 mg/dL Normal [facility] Comment on above: Performed By: #### C MP, BNP #### [facility] [address] [address] [address] Destinee Billingsley PROF 14(COMP METB)on 022 Albumin [Mass/Vol] 3.6 g/dL Normal 3.4-5.0 [facility] Comment on above: Performed By: #### C MP, BNP #### [facility] [address] [place] [address] Dr. Destinee Billingsley Albumin/Globulin [Mass ratio] 1.2 {ratio} Normal [facility] Comment on above: Performed By: #### C MP, BNP #### [facility] [address] [address] [address] Destinee Billingsley ALP [Catalytic activity/Vol] 87 U/L Normal 46-116 [facility] Comment on above: Performed By: #### C MP, BNP #### [facility] [address] [place] [address] Dr. Destinee Billingsley ALT [Catalytic activity/Vol] 86 U/L Critically high 16-63 [facility] Comment on above: Performed By: #### C MP, BNP #### [facility] [address] [place] [address] Dr. Destinee Billingsley Anion gap [Moles/Vol] 13.1 mmol/L Normal [facility] Comment on above: Performed By: #### C MP, BNP #### [facility] [address] [place] [address] Dr. Destinee Billingsley AST [Catalytic activity/Vol] 44 U/L Critically high 15-37 [facility] Comment on above: Performed By: #### C MP, BNP #### [facility] [address] [place] [address] Dr. Destinee Billingsley Bilirubin [Mass/Vol] 0.8 mg/dL Normal 0.2-1.0 [facility] Comment on above: Performed By: #### C MP, BNP #### [facility] [address] [place] [address] Dr. Destinee Billingsley Calcium [Mass/Vol] 9.1 mg/dL Normal 8.5-10.1 [facility] Comment on above: Performed By: #### C MP, BNP #### [facility] [address] [place] [address] Dr. Destinee Billingsley Chloride [Moles/Vol] 104 mmol/L Normal 98-107 [facility] [place] [facility] Comment on above: Performed By: #### C MP, BNP #### [facility] [address] [place] [address] Dr. Destinee Billingsley CO2 [Moles/Vol] 28.1 mmol/L Normal 21.0-32.0 [facility] Comment on above: Performed By: #### C MP, BNP #### [facility] [address] [address] [address] Destinee Billingsley Creatinine [Mass/Vol] 0.91 mg/dL Normal 0.70-1.30 [facility] [place] [facility] Comment on above: Performed By: #### C MP, BNP #### [facility] [address] [place] [address] Dr. Destinee Billingsley EGFR-AF TANZANIAN >60 Normal >=60 [facility] Comment on above: Performed By: #### C MP, BNP #### [facility] [address] [place] [address] Dr. Destinee Billingsley EGFR-NON AF TANZANIAN >60 Normal >=60 [facility] [place] [facility] Comment on above: Performed By: #### C MP, BNP #### [facility] [address] [place] [address] Dr. Destinee Billingsley Globulin (S) [Mass/Vol] 2.9 g/dL Normal [facility] [place] [facility] Comment on above: Performed By: #### C MP, BNP #### [facility] [address] [place] [address] Dr. Destinee Billingsley Glucose [Mass/Vol] 138 mg/dL Critically high 74-106 [facility] Comment on above: Performed By: #### C MP, BNP #### [facility] [address] [place] [address] Dr. Destinee Billingsley Potassium [Moles/Vol] 4.2 mmol/L Normal 3.5-5.1 [facility] [place] [facility] Comment on above: Performed By: #### C MP, BNP #### [facility] [address] [place] [address] Dr. Destinee Billingsley Protein [Mass/Vol] 6.5 g/dL Normal 6.4-8.2 [facility] Comment on above: Performed By: #### C MP, BNP #### [facility] [address] [place] [address] Dr. Destinee Billingsley Sodium [Moles/Vol] 141 mmol/L Normal 136-145 [facility] Comment on above: Performed By: #### C MP, BNP #### [facility] [address] [place] [address] Dr. Destinee Billingsley Urea nitrogen [Mass/Vol] 7.0 mg/dL Normal 7.0-18.0 [facility] [place] [facility] Comment on above: Performed By: #### C MP, BNP #### [facility] [address] [place] [address] Dr. Destinee Billingsley Urea nitrogen/Creatinin e [Mass ratio] 7.7 mg/mg Normal [facility] [place] [facility] Comment on above: Performed By: #### C MP, BNP #### [facility] [address] [place] [address] Dr. Destinee Billingsley URIC ACID SERUMon 05-04-2022 Urate [Mass/Vol] 8.7 mg/dL Critically high 3.5-7.2 [facility] [place] [facility] Comment on above: Performed By: #### C MP, BNP #### [facility] [address] [place] [address] Dr. Destinee Billingsley CA 19-9on 03-15-2022 CA 19-9 6 U/mL Normal 0-35 [facility] [place] [facility] Comment on above: Result Comment: [employer] Electrochemiluminescence Immunoassay (ECLIA) . Values obtained with different assay methods or kits cannot be used interchangeably. Results cannot be interpreted as absolute evidence of the presence or absence of malignant disease. Performed By: #### C MP, BNP #### [facility] [address] [place] [address] Dr. Destinee Billingsley H PYLORI ANTIBODY IGGon 02-24 H. PYLORI IGG ABS 0.32 Index Value Normal 0.00-0.79 [facility] Comment on above: Result Comment: Nega tive <0.80 Equivocal 0.80 - 0.89 Positive >0.89 Performed By: #### C MP, BNP #### [facility] [address] [place] [address] Dr. Destinee Billingsley AMMONIAon 03-14-2022 Ammonia (P) [Moles/Vol] 20 umol/L Normal 11-32 [facility] [place] [facility] Comment on above: Performed By: #### A MM #### [facility] [address] [place] [address] Dr. Destinee Billingsley AMYLASEon 03-14-2022 Amylase [Catalytic activity/Vol] 37 U/L Normal 25-115 [facility] [place] [facility] Comment on above: Result Comment: DISR EGARD VALUE / CALIBRATION NOT COMPLETED FOR THIS TEST Performed By: #### C MP, BNP #### [facility] [address] [place] [address] Dr. Destinee Billingsley LIPASEon 03-14-2022 Lipase [Catalytic activity/Vol] 91.0 U/L Normal 73.0-393.0 [facility] [place] [facility] Comment on above: Performed By: #### C MP, BNP #### [facility] [address] [place] [address] Dr. Destinee Billingsley LYME DISEASE AB EIA W REFLEX on 03-14-2022 Lyme Total Antibody,EIA Negative Normal Negative [facility] [place] [facility] Comment on above: Result Comment: Lyme Antibody Negative No laboratory evidence of infection with B. burgdorferi (Lyme disease). Negative results may occur in patients recently infected (greater than or equal to 14 days) with B. burgdorferi. If recent infection is suspected, repeat testing on a new sample collected in 7 to 14 days is recommended. Performed By: #### C MP, BNP #### [facility] [address] [place] [address] Dr. Destinee Billingsley PROF 14(COMP METB)on 022 Albumin [Mass/Vol] 3.6 g/dL Normal 3.4-5.0 [facility] Comment on above: Performed By: #### C MP, BNP #### [facility] [address] [place] [address] Dr. Destinee Billingsley Albumin/Globulin [Mass ratio] 1.3 {ratio} Normal [facility] [place] [facility] Comment on above: Performed By: #### C MP, BNP #### [facility] [address] [address] [address] Destinee Billingsley ALP [Catalytic activity/Vol] 75 U/L Normal 46-116 [facility] [place] [facility] Comment on above: Performed By: #### C MP, BNP #### [facility] [address] [address] [address] Destinee Billingsley ALT [Catalytic activity/Vol] 83 U/L Critically high 16-63 [facility] [place] [facility] Comment on above: Performed By: #### C MP, BNP #### [facility] [address] [address] [address] Destinee Billingsley Anion gap [Moles/Vol] 13.2 mmol/L Normal [facility] [place] [facility] Comment on above: Performed By: #### C MP, BNP #### [facility] [address] [address] [address] Destinee Billingsley AST [Catalytic activity/Vol] 51 U/L Critically high 15-37 [facility] [place] [facility] Comment on above: Performed By: #### C MP, BNP #### [facility] [address] [address] [address] Destinee Billingsley Bilirubin [Mass/Vol] 1.0 mg/dL Normal 0.2-1.0 [facility] [place] [facility] Comment on above: Performed By: #### C MP, BNP #### [facility] [address] [address] [address] Destinee Billingsley Calcium [Mass/Vol] 8.7 mg/dL Normal 8.5-10.1 [facility] Comment on above: Performed By: #### C MP, BNP #### [facility] [address] [address] [address] Destinee Billingsley Chloride [Moles/Vol] 110 mmol/L Critically high 98-107 [facility] [place] [facility] Comment on above: Performed By: #### C MP, BNP #### [facility] [address] [address] [address] Destinee Billingsley CO2 [Moles/Vol] 24.3 mmol/L Normal 21.0-32.0 [facility] Comment on above: Performed By: #### C MP, BNP #### [facility] [address] [place] [address] Dr. Destinee Billingsley Creatinine [Mass/Vol] 0.89 mg/dL Normal 0.70-1.30 [facility] [place] [facility] Comment on above: Performed By: #### C MP, BNP #### [facility] [address] [place] [address] Dr. Destinee Billingsley EGFR-AF TANZANIAN >60 Normal >=60 [facility] Comment on above: Performed By: #### C MP, BNP #### [facility] [address] [place] [address] Dr. Destinee Billingsley EGFR-NON AF TANZANIAN >60 Normal >=60 [facility] [place] [facility] Comment on above: Performed By: #### C MP, BNP #### [facility] [address] [place] [address] Dr. Destinee Billingsley Globulin (S) [Mass/Vol] 2.7 g/dL Normal [facility] [place] [facility] Comment on above: Performed By: #### C MP, BNP #### [facility] [address] [place] [address] Dr. Destinee Billingsley Glucose [Mass/Vol] 92 mg/dL Normal 74-106 [facility] Comment on above: Performed By: #### C MP, BNP #### [facility] [address] [place] [address] Dr. Destinee Billingsley Potassium [Moles/Vol] 3.5 mmol/L Normal 3.5-5.1 [facility] [place] [facility] Comment on above: Performed By: #### C MP, BNP #### [facility] [address] [place] [address] Dr. Destinee Billingsley Protein [Mass/Vol] 6.3 g/dL Critically low 6.4-8.2 [facility] Comment on above: Performed By: #### C MP, BNP #### [facility] [address] [place] [address] Dr. Destinee Billingsley Sodium [Moles/Vol] 144 mmol/L Normal 136-145 [facility] Comment on above: Performed By: #### C MP, BNP #### [facility] [address] [place] [address] Dr. Destinee Billingsley Urea nitrogen [Mass/Vol] 10.0 mg/dL Normal 7.0-18.0 [facility] [place] [facility] Comment on above: Performed By: #### C MP, BNP #### [facility] [address] [place] [address] Dr. Destinee Billingsley Urea nitrogen/Creatinin e [Mass ratio] 11.2 mg/mg Normal [facility] Comment on above: Performed By: #### C MP, BNP #### [facility] [address] [place] [address] Dr. Destinee Billingsley BNPon 03-06-2022 Natriuretic peptide B (Bld) [Mass/Vol] 272.0 pg/mL Normal <=450.0 [facility] Comment on above: Performed By: #### C MP, BNP #### [facility] [address] [place] [address] Dr. Destinee Billingsley PROF 14(COMP METB)on 022 Albumin [Mass/Vol] 3.5 g/dL Normal 3.4-5.0 [facility] Comment on above: Performed By: #### C MP, BNP #### [facility] [address] [place] [address] Dr. Destinee Billingsley Albumin/Globulin [Mass ratio] 1.2 {ratio} Normal [facility] Comment on above: Performed By: #### C MP, BNP #### [facility] [address] [place] [address] Dr. Destinee Billingsley ALP [Catalytic activity/Vol] 81 U/L Normal 46-116 [facility] Comment on above: Performed By: #### C MP, BNP #### [facility] [address] [place] [address] Dr. Destinee Billingsley ALT [Catalytic activity/Vol] 83 U/L Critically high 16-63 [facility] [place] [facility] Comment on above: Performed By: #### C MP, BNP #### [facility] [address] [place] [address] Dr. Destinee Billingsley Anion gap [Moles/Vol] 12.2 mmol/L Normal [facility] [place] [facility] Comment on above: Performed By: #### C MP, BNP #### [facility] [address] [address] [address] Destinee Billingsley AST [Catalytic activity/Vol] 44 U/L Critically high 15-37 [facility] [place] [facility] Comment on above: Performed By: #### C MP, BNP #### [facility] [address] [address] [address] Destinee Billingsley Bilirubin [Mass/Vol] 0.8 mg/dL Normal 0.2-1.0 [facility] Comment on above: Performed By: #### C MP, BNP #### [facility] [address] [address] [address] Destinee Billingsley Calcium [Mass/Vol] 8.7 mg/dL Normal 8.5-10.1 [facility] Comment on above: Performed By: #### C MP, BNP #### [facility] [address] [place] [address] Dr. Destinee Billingsley Chloride [Moles/Vol] 106 mmol/L Normal 98-107 [facility] Comment on above: Performed By: #### C MP, BNP #### [facility] [address] [address] [address] Destinee Billingsley CO2 [Moles/Vol] 25.2 mmol/L Normal 21.0-32.0 [facility] Comment on above: Performed By: #### C MP, BNP #### [facility] [address] [place] [address] Dr. Destinee Billingsley Creatinine [Mass/Vol] 0.89 mg/dL Normal 0.70-1.30 [facility] Comment on above: Performed By: #### C MP, BNP #### [facility] [address] [place] [address] Dr. Destinee Billingsley EGFR-AF TANZANIAN >60 Normal >=60 [facility] Comment on above: Performed By: #### C MP, BNP #### [facility] [address] [place] [address] Dr. Destinee Billingsley EGFR-NON AF TANZANIAN >60 Normal >=60 [facility] Comment on above: Performed By: #### C MP, BNP #### [facility] [address] [address] [address] Destinee Billingsley Globulin (S) [Mass/Vol] 2.9 g/dL Normal [facility] Comment on above: Performed By: #### C MP, BNP #### [facility] [address] [address] [address] Destinee Billingsley Glucose [Mass/Vol] 120 mg/dL Critically high 74-106 [facility] Comment on above: Performed By: #### C MP, BNP #### [facility] [address] [address] [address] Destinee Billingsley Potassium [Moles/Vol] 3.4 mmol/L Critically low 3.5-5.1 [facility] Comment on above: Performed By: #### C MP, BNP #### [facility] [address] [address] [address] Destinee Billingsley Protein [Mass/Vol] 6.4 g/dL Normal 6.4-8.2 [facility] Comment on above: Performed By: #### C MP, BNP #### [facility] [address] [address] [address] Destinee Billingsley Sodium [Moles/Vol] 140 mmol/L Normal 136-145 [facility] Comment on above: Performed By: #### C MP, BNP #### [facility] [address] [address] [address] Destinee Billingsley Urea nitrogen [Mass/Vol] 14.0 mg/dL Normal 7.0-18.0 [facility] Comment on above: Performed By: #### C MP, BNP #### [facility] [address] [address] [address] Destinee Billingsley Urea nitrogen/Creatinin e [Mass ratio] 15.7 mg/mg Normal [facility] Comment on above: Performed By: #### C MP, BNP #### [facility] [address] [address] [address] Destinee Billingsley HEMOGLOBINon 02-08-2022 Hemoglobin (Bld) [Mass/Vol] 14.1 g/dL Normal 14.0-18.0 [facility] Comment on above: Performed By: #### C MP, BNP #### [facility] [address] [place], [place] [address] Dr. Destinee Billingsley XR CHEST 2 Von [...] by: BUTCH FUCHS Date: 2022-01-16 14:44 Normal [facility] Cardiovascular Lab Reporton 01-05-2021 Cardiovascular Lab Report [facility] Patient Name: [facility] MR #: [id number] Physician: Kiko Barr Department of Mili Drummond Medicine Service Date: 01/05/2021 Division of Birthdate: 1975 Cardiology Room #: [facility] Cardiovascular Services [place] [address] Cardiovascular Laboratory Report INDICATION: The patient is [...] signed informed consent. He was brought to analyst microbiology lab in a fasting state. The left wrist area was prepped and draped in usual fashion. Modified Matthew's test was favorable. Access in the left radial artery was obtained using micropuncture technique. A 6-Lithuanian x 11 cm hydrophilic sheath was advanced, verapamil was given through the sheath and heparin was administered intravenously. Bilateral selective coronary angiography was then performed using a 6-Lithuanian JR4 diagnostic catheter for engagement of the right coronary artery following which intracoronary nitroglycerin was administered after the initial angiogram was obtained. Then the catheter was then exchanged over wire to a 6-Lithuanian JL3.5 diagnostic catheter, which was used to [...] by: Kiko Drummond M.D. 01/08/2021 09:10 A Kiko Drummond M.D. Date Dict: 01/05/2021/04:23 P/Kiko Drummond M.D. Date Trans: 01/05/2021 04:52 P/mmo [id number] cc: Arlyn Pineda M.D. [address], [place] [address] [place] Vital Signs Date Time Vital Sign Value Performing Clinician Faci lity 05-19-2024 10:32-0400 Blood Pressure Location Lupillo NILL [facility] 05-19-2024 10:32-0400 Diastolic blood pressure 85 mm[Hg] Lupillo NILL [facility] 05-19-2024 10:32-0400 Heart rate 65 /min Lupillo NILL [facility] 05-19-2024 10:32-0400 Respiratory rate 16 /min Lupillo NILL [facility] 05-19-2024 10:32-0400 Systolic blood pressure 130 mm[Hg] Lupillo NILL [facility] Encounters Encounter Date Encounter Type Care Provider Facility Start: 05-19-2024 End: 05-19-2024 ambulatory Lupillo R NILL Facility: [place] [facility] Start: 05-19-2024 End: 05-19-2024 Patient encounter procedure Lupillo R NILL [facility] Start: 05-15-2024 ambulatory Lupillo SHINE Facility:[facility] Start: 05-14-2024 ambulatory Lupillo SHINE Facility:[facility] Start: 12-29-2023 Letter encounter [facility] Start: 09-22-2023 Letter encounter [facility] Start: 12-27-2022 End: 12-28-[address] ARLYN PINEDA . Facility: Start: 12-23-2022 [facility] Start: 05-11-2022 Encounter for genera l adult medical examination without abnormal findings DR ARLYN PINEDA . [facility] Start: 05-04-2022 End: 05-05-[address] [...] Start: 01-05-2021 End: 01-06-2021 ambulatory PROVIDER UNKNOWN Facility:[facility] Procedures Date Procedure Procedure Detail Performing Clinician Start: 05-04-[address] ZACHARY PINEDA . Comment on above: Performed By: #### C MP, BNP #### [facility] [address] [place] [address] Dr. Destinee Billingsley Arthroscopy of knee Lupillo NILL Cardiac catheterization Virgil ael NILL carpal tunnel Lupillo NILL Colonoscopy Lupillo NILL Repair of musculoten dinous cuff of shoulder Lupillo NILL Plan of Treatment Date Care Activity Detail Author Start: 04-26-2023 Influenza vaccination Influenza Vacc ine (#1) [facility] Start: 2023 Shingles (RZV) Vacci ne (1 of 2) Shingles (RZV) Vaccine (1 of 2) [facility] Start: 2018 Screening for malign ant neoplasm of colon [facility] Start: 2008 Lipid panel Ch[facility] Start: 1992 Hepatitis A (HAV) Va ccine (optional start 19+ years) Hepatitis A (HAV) Vaccine (optional start 19+ years) [facility] Start: 1991 Hepatitis C screening [facility] Start: 1991 Tetanus + diphtheria + acellular pertussis vaccine (product) Tdap Booster [facility] Start: 1988 [facility] Start: 1975 COVID-19 Vaccine (#1) COVID-19 Vacci ne (#1) [facility] Start: 1975 Hepatitis B vaccination Hepati tis B (HBV) Vaccine (1 of 3 - 3-dose series) [facility] Start: 1975 Screening for malign ant neoplasm of colon Colonoscopy [facility] Immunizations Immunization Date Immunization Notes Care Provider Fa cili 06-01-2022 SARS-CoV-2 (COVID-19 ) [id number] Lupillo PHILLIPSKevin [facility] 03-15-2022 SARS-CoV-2 mRNA (mjonqufawlm-zrir-tgstq se) vaccine Lupillo [facility] 12-24-2020 SARS-CoV-2 (COVID-19 ) mRNA BNT-162b2 vax [place] [facility] Comment on above: Result Comment: 2023: [id number] 12-03-2020 SARS-CoV-2 (COVID-19 ) mRNA BNT-162b2 vax [place] [facility] Payers Date Payer Category Payer Unknown [id number] 1975 Unknown [id number] [id number] 1975 Unknown [id number] 2.16.84 [id number] 1975 Unknown [id number] 2.16.84 [id number] 1975 Unknown [id number] 2.16.84 [id number] 1975 Unknown [id number] 2.16.84 [id number] 1975 Unknown [id number] 2.16.84 [id number] 1975 Unknown [id number] 2.16.84 [id number] 1975 Unknown [id number] 2.16.84 [id number] 1975 Unknown [id number] 2.16.8 [id number] 1975 Unknown [id number] 2.16.8 [id number] 1959 Unknown [id number] Social History Date Type Detail Facility [facility] use [facility] Start: 07-15-2012 Cigarettes smoked current (pack per day) - Reported 1 [facility] Start: 07-15-2012 Tobacco use and exposure Smokeless tobacco non-user [facility] Start: 05-28-2014 Alcohol intake 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 Clinical Note 05-19-2024 Note Date & Type [...] problems) Latex ( (more content not included)... [facility] Comment on above: Result Comment: Elec tronically Signed By: RL JOSHI, Lupillo Newton\Date and Time Signed: 05/19/24 11:14 EDT Evaluation + Plan note Note Date & Type Note Facility Evaluation + Plan note No data available for this section [facility] [place] [facility] Discharge instructions Note Date & Type Note Facility Hospital Discharge instructions No data available for this section [facility] Progress note Note Date & Type Note Facility Progress note No data available for this section [facility] [place] Summary Purpose Family History No Family History [...] section and content) DATE CREATED AUTHOR 01/16/2021 [facility] DATE CREATED AUTHOR AUTHOR'S ORGANIZ ATION 01/03/2023 [facility] DATE CREATED AUTHOR AUTHOR'S ORGANIZ ATION 05/21/2024 [facility] Patient Care team informatio n (unrecognized section and content) Personnel Name: Arlyn Pineda MD Address: Address: [address] [place] [address] FOR RECORDS PERTAINING TO PATIENTS WHO ARE [...] BE BASED ON THE PRIMARY CLINICAL RECORDS. [facility] enrich-in [facility]. provides no warranty or guarantee of the accuracy or completeness of information in this document.
[2024-06-03 07:29] VITALS: BP 169/89; PULSE 91; TEMP 36.2; O2SAT 97; BMI 31.2
[2024-06-03] MEDS: 0.9 % SODIUM CHLORIDE 500 ML 50 ML IV (07:45)
[2024-06-03 07:54] LABS: Glucometer 148 mg/dL (74-106)
[2024-06-03 08:51] VITALS: BP 109/78; PULSE 84; TEMP 36.9; O2SAT 93
[2024-06-03 09:06] VITALS: BP 109/66; PULSE 72; O2SAT 97
[2024-06-03 09:21] VITALS: BP 139/88; PULSE 70; O2SAT 96
== END 2024-06-03 09:25 | disposition home or self-care (01) ==
PROVIDERS: PCP Family Medicine; Visit Provider Surgery
PROC: (CPT 811; principal; 2024-06-03 08:35)
DX: R19.5 Other fecal abnormalities (principal); K57.30 Diverticulosis of large intestine without perforation or abscess without bleeding; K63.5 Polyp of colon; Z80.0 Family history of malignant neoplasm of digestive organs; I25.10 Atherosclerotic heart disease of native coronary artery without angina pectoris; E78.5 Hyperlipidemia, unspecified; E11.9 Type 2 diabetes mellitus without complications; J44.9 Chronic obstructive pulmonary disease, unspecified; Z79.84 Long term (current) use of oral hypoglycemic drugs; Z87.891 Personal history of nicotine dependence; I07.1 Rheumatic tricuspid insufficiency; K21.9 Gastro-esophageal reflux disease without esophagitis
CPT/HCPCS: 00811; 45380; 36415; 82948; J2704

== ENCOUNTER 2025-01-01 14:08 | Outpatient (OUT) | payer BC, SELFPAY ==
--- NOTE | 2025-01-01 14:17 | XR_ITS ---
[facility] [place] [id number] Patient Name: LUPILLO GARCIA MRN: [id number] date: 1975 Sex: M Assigned Patient Location: [facility] Current Patient Location: [facility] Accession/Order Number: [id number] Exam Date: 01/01/2025 14:43 Report Date: 01/01/2025 14:44 At the request of: ARLYN WARD MD Procedure: XR wrist RT min 3V RIGHT WRIST - 3 views CLINICAL HISTORY: Fall. Acute right wrist pain. COMPARISON: None FINDINGS: Postsurgical changes are seen involving the carpus with resection of the distal ulna. There appears be fusion of the radiocarpal joint. No acute bony process. No focal soft tissue abnormality. XR/XR wrist RT min 3V IMPRESSION: NO ACUTE BONY PROCESS. Impression dictated by: Antwan Thomas Jr., D.O. 01/01/2025 2:44 PM Dictation Location: [place] [address] Electronically authenticated by: [id number] Y Date: 01/01/2025 14:44
== END 2025-01-01 14:09 | disposition home or self-care (01) ==
PROVIDERS: PCP Family Medicine; Visit Provider Family Medicine
DX: Z00.00 Encounter for general adult medical examination without abnormal findings (principal); M25.531 Pain in right wrist
CPT/HCPCS: 73110

== ENCOUNTER 2025-03-03 20:49 | Outpatient (OUT) | payer BC, SELFPAY ==
--- OUTSIDE RECORDS SUMMARY | 2025-01-20 09:11 | XMS_ITS ---
Author Organization [facility] in [place] Address [address] [place] [address] Care Team Providers Care Drying Supervisor Name Role Phone Rigoberto Pineda Primary Care Provider REASON FOR VISIT Jardiance 90 day Medications Medication SIG (Take, Route, Fr equency, Duration) Notes Start Date End Date Status Jardiance 10 MG 1 tablet Orally Once a day for 90 days 01/01/2025 Active Encounters Encounter Location Date Provider Diagnosis [facility] [address] [place] [address] 01/20/2025 Rigoberto Pineda Well adult Z00.0 0 Assessments Encounter Date Diagnosis (ICD Code) Assessment Notes Treatment Notes Treatment Clinical Notes Section Notes 01/20/2025 Well adult (ICD-10 - Z00.00) Plan Of Treatment Medication Medication Name Sig Start Date Stop Date Notes Jardiance 10 MG 1 tablet Orally Once a day for 90 days 04/2025 Progress Notes * Joss WANG EDOB: [birth year] (49 yo M)Acc No.[id number]:01/20/2025 Patient: Victor Hugo CHRISTENSENAIJoss :1975 A ge:49 Y S ex:Male Address:[address] [place] [address], [id number] * Refills Refill Jardiance Tablet, 10 MG, Orally, 90, 1 tablet, Once a day, 90 days, Refills=3 * true * Date: Generated for Amanda horan/Meir/Mimi on: 0 03/03/2025 08:51 PM EDT
--- OUTSIDE RECORDS SUMMARY | 2025-02-01 05:51 | XMS_ITS ---
Author Organization [facility] in [place] Address [address] [place] [place] [address] Care Team Providers Care Quantitative Strategy Analyst Name Role Phone Rigoberto Pineda Primary Care Provider REASON FOR VISIT foot fungus Medications Medication SIG (Take, Route, Fr equency, Duration) Notes Start Date End Date Status Cephalexin 500 MG 2 tabs Orally bid for 10 days Active Encounters Encounter Location Date Provider Diagnosis [facility] [address] [place] [address] 02/01/2025 Rigoberto Pineda Plan Of Treatment Medication Medication Name Sig Start Date Stop Date Notes Cephalexin 500 MG 2 tabs Orally bid for 10 days 02/01/2025 Progress Notes * Joss WANG EDOB: [birth year] (49 yo M)Acc No.[id number]:02/01/2025 Patient: Joss BROWN :1975 A ge:49 Y S ex:Male Address:[address] [place], [address] * Refills Start Cephalexin Tablet, 500 MG, Orally, 40 Tablet, 2 tabs, bid, 10 days * true * Date: Generated for Printi ng/Faxing/eTransmitting on: 0 03/03/2025 08:52 PM EDT
--- OUTSIDE RECORDS SUMMARY | 2025-02-17 09:44 | XMS_ITS ---
Author Organization [facility] in [place] Address [address] [place] [address] Care Team Providers Care Aircraft Refueler Name Role Phone Rigoberto Pineda Primary Care Provider REASON FOR VISIT rf albuterol Medications Medication SIG (Take, Route, Frequency, Duration) Notes Start Date End Date Status Ventolin HFA 108 (90 Base) MCG/ACT USE 1 INHALATION BY MOUTH EVERY 4 HOURS NEEDED for 90 Active Encounters Encounter Location Date Provider Diagnosis [facility] [address] [place] [address] 02/17/2025 Rigoberto Pineda CAD (coronary artery disease) I25.10 Assessments Encounter Date Diagnosis (ICD Code) Assessment Notes Treatment Notes Treatment Clinical Notes Section Notes 02/17/2025 CAD (coronary artery disease) (ICD-10 - I25.10) Plan Of Treatment Medication Medication Name Sig Start Date Stop Date Notes Ventolin HFA 108 (90 Base) MCG/ACT USE 1 INHALATION BY MOUTH EVERY 4 HOURS NEEDED for 90 Progress Notes * Joss WANG EDOB: [birth year] (49 yo M)Acc No.[id number]:02/17/2025 Patient: Joss BROWN :1975 A ge:49 Y S ex:Male Address:[address] [place], [address] * Refills Refill Ventolin HFA Aerosol Solution, 108 (90 Base) MCG/ACT, 54 Gram, USE 1 INHALATION BY MOUTH EVERY 4 HOURS NEEDED, 90, Refills=3 * true * Date: Generated for Amanda horan/Meir/Timitting on: 0 03/03/2025 08:52 PM EDT
--- OUTSIDE RECORDS SUMMARY | 2025-03-03 20:52 | XMS_ITS | Patient Health Record ---
Author Organization [facility] in [place] Address [address] [place] [address] Care Team Providers Care Glass Vial Filler Name Role Phone Miriam Rigoberto Primary Care Provider Gerardo Ho Angi [phone] Allergies Allergen (clinical drug ingredient) Drug/Non Drug Allergy documented on EMR Reaction Allergy Type Onset Date Status meperidine Demerol Unknown Drug Allergy Active acetaminophen / oxycodone Percocet vomiting Drug Allergy Active ketorolac Ketorolac Unknown Drug Allergy Active Latex Latex Unknown Allergy Active nickel Nickel Unknown Allergy Active levofloxacin levoFLOXacin dizziness/joint pain Drug Allergy Active Results Component Value Reference Range Notes XR wrist RT min 3V Reviewed date:01/03/2025 06:29:39 PM Interpretation: Performing Lab: Notes/Report: Source Facility: [place] [address] [facility] [place] [id number] XRay Report Signed Patient: LUPILLO WANG MR#: [id number] : 1975 Acct:[id number] Age/Sex: 49 / M ADM Date: 01/01/25 Loc: RAD Attending Dr: Arlyn Ward M.D. Ordering Physician: Arlyn Ward M.D. Date of Service: 01/01/25 Procedure(s): XR wrist RT min 3V Accession Number(s): [id number] cc: Arlyn Ward M.D. [place] [address] Patient Name: LUPILLO WANG MRN: [id number] date: 1975 Sex: M Assigned Patient Location: RAD Current Patient Location: RAD Accession/Order Number: [id number] Exam Date: 01/01/2025 14:43 Report Date: 01/01/2025 14:44 At the request of: ARLYN WARD MD Procedure: XR wrist RT min 3V RIGHT WRIST - 3 views CLINICAL HISTORY: Fall. Acute right wrist pain. COMPARISON: None FINDINGS: Postsurgical changes are seen involving the carpus with resection of the distal ulna. There appears be fusion of the radiocarpal joint. No acute bony process. No focal soft tissue abnormality. XR/XR wrist RT min 3V IMPRESSION: NO ACUTE BONY PROCESS. Impression dictated by: Antwan Thomas Jr., DNunoONuno 01/01/2025 2:44 PM Dictation Location: [place] [address] Electronically authenticated by: [id number] Y Date: 01/01/2025 14:44 Dictated By: Antwan Thomas M.D. Signed By: 01/01/25 1447 DD/ 1444 TD/TT: Chaplain: The [address] [address] XRay Report Signed Patient: ANDREZ WANG MR#: [id number] : 1975 Acct:[id number] Age/Sex: 49 / M ADM Date: 01/01/25 Loc: RAD Attending Dr: Carmen Ward M.D. Ordering Physician: Arlyn Ward M.D. Date of Service: 01/01/25 Procedure(s): XR wri st RT min 3V Accession Number(s): [id number] cc: Arlyn Ward M.D. [address] [address] Patient Name: LUPILLO WANG MRN: [id number] date: 1975 Sex: M Assigned Patient Location: RAD Current Patient Location: RAD Accession/Order Numb er: [id number] Exam Date: 01/01/2025 14:43 Report Date: 01/01/2025 14:44 At the request of: ARLYN WARD MD Procedure: XR wrist RT min 3V RIGHT WRIST - 3 views CLINICAL HISTORY: Fa ll. Acute right wrist pain. COMPARISON: None FINDINGS: Postsurgical changes are seen involving the carpus with resection of the distal ulna. There appears be fusion of the radiocarpal joint. No acute bony process. No focal so ft tissue abnormality. XR/XR wrist RT min 3V IMPRESSION: NO ACUTE BONY PROCESS. Impression dictated by: Antwan Thomas Jr., D.O. 01/01/2025 2:44 PM Dictation Location: [place] [address] Electronically authenticated by: [id number] Date: 01/01/2025 14:44 Dictated By: Antwan Thomas M.D. Signed By: 01/01/25 1447 DD/ 1444 TD/TT: Chaplain: HUONG dee perf SPECT rest str Reviewed date:03/03/2024 03:53:18 PM Interpretation: Performing Lab: Notes/Report: Source Facility: [place] [address] Nuclear Medicine Report Signed Patient: Lupillo Wang MR#: [id number] : 1975 Acct:[id number] Age/Sex: 48 / M ADM Date: 03/03/24 Loc: NM Attending Dr: Arlyn Ward M.D. Ordering Physician: Arlyn Ward M.D. Date of Service: 03/03/24 Procedure(s): NM dee perf SPECT rest str Accession Number(s): [id number] cc: Arlyn Ward M.D. Patient Name: LUPILLO WANG MR#: [id number] : 1975 Exam Date: 03/03/2024 Ordering Doctor: DR Arlyn Ward . RADIOLOGY REPORT PROCEDURE: NM DEE PERF SPECT REST STR COMPARISON: None. INDICATIONS: CHEST PAIN TECHNIQUE: Exam Description: Stress/Rest one day protocol gated SPECT Rest Imagin.5 mCi Tc-99m Cardiolite IV on 03/03/2024 Stress Imaging 30.8 mCi Tc-99m Cardiolite IV on 03/03/2024 Exercise Protocol: Brad Heart Rate (bpm): Rest: 73 Max: 146 PMHR: 85 Blood Pressure: Rest: 140/72 Max: 158/80 Exercise Time: Minutes: 6 Seconds: 14 Stage Reached: Stage: 2 Mets 7.0 Symptoms: Rest and peak stress ECG findings were pending and the exercise portion of the study was pending per attending physician Dr. PFEIFFER . For more details please see separate cardiac stress test report. FINDINGS: QUALITY OF STUDY: Good. PERFUSION DEFECT: None. LOCATION: N/A SIZE: N/A. SEVERITY: N/A. TYPE: N/A. WALL MOTION: Normal. LV SIZE: Enlarged; EDV 126 mL. TID / TCD: None; 1.1 LVEF: Abnormal. Calculated EF 51%. SUMMARY: Myocardial perfusion imaging study has ABNORMAL findings. CONCLUSION: 1. No reversible ischemia identified 2. Borderline dilatation of the left ventricle, EDV 126 milliliters 3. Left ventricular ejection fraction is low at 51% 4. Pending exercise test results Dictated by: Bryan Lew MD on 03/03/2024 at 12:52 Approved by: Bryan Lew MD on 03/03/2024 at 12:53 Dictated By: Bryan Lew M.D. Signed By: 03/03/24 1254 DD/ 1254 TD/TT: Chaplain: [place] [address] Nuclear Medicine Report Signed Patient: Andrez Wang MR#: [id number] : 1975 Acct:[id number] Age/Sex: 48 / M ADM Date: 03/03/24 Loc: NM Attending Dr: Carmen Ward M.D. Ordering Physician: Arlyn Ward M.D. Date of Service: 03/03/24 Procedure(s): NM dee perf SPECT rest str Accession Number(s): [id number] cc: Arlyn Ward M.D. Patient Name: LUPILLO WANG MR#: [id number] : 1975 Exam Date: 03/03/2024 Ordering Doctor: DR Arlyn Ward . RADIOLOGY REPORT PROCEDURE: NM DEE PE RF SPECT REST STR COMPARISON: None. INDICATIONS: CHEST PAIN TECHNIQUE: Exam Description: Stress/Rest one day protocol gated SPECT Rest Imagin.5 m Ci Tc-99m Cardiolite IV on 03/03/2024 Stress Imaging 30.8 mCi Tc-99m Cardiolite IV on 03/03/2024 Exercise Protocol: Brad Heart Rate (bpm): Re st: 73 Max: 146 PMHR: 85 Blood Pressure: Res t: 140/72 Max: 158/80 Exercise Time: Minut es: 6 Seconds: 14 Stage Reached: Stag e: 2 Mets 7.0 Symptoms: Rest and peak stress ECG findings were pending and the exercise portion of the study was pending pe r attending physician Dr. PFEIFFER . For more details please see separate cardiac stress test report. FINDINGS: QUALITY OF STUDY: Good. PERFUSION DEFECT: None. LOCATION: N/A SIZE: N/A. SEVERITY: N/A. TYPE: N/A. WALL MOTION: Normal. LV SIZE: Enlarged; E DV 126 mL. TID / TCD: None; 1.1 LVEF: Abnormal. Calculated EF 51%. SUMMARY: Myocardial perfusion imaging study has ABNORMAL findings. CONCLUSION: 1. No reversible ischemia identified 2. Borderline dilatation of the left ventricle, EDV 126 milliliters 3. Left ventricular ejection fraction is low at 51% 4. Pending exercise test results Dictated by: Bryan Lew MD on 03/03/2024 at 12:52 Approved by: Bryan Lew MD on 03/03/2024 at 12:53 Dictated By: Vincenzo Lew M.D. Signed By: 03/03/24 1254 DD/ 1254 TD/TT: Chaplain: HEMOGLOBIN Reviewed date:03/23/2024 08:47:21 PM Interpretation: Performing Lab: Notes/Report: [facility] , Hemoglobin 14.6 14.0-18.0 g/dL Performing Lab: see note ML - The [facility] LB RT pulmonary function test Reviewed date:03/25/2024 08:46:45 PM Interpretation: Performing Lab: Notes/Report: Source Facility: [facility]-[address] [place] [address] [place] [address] Respiratory Report Signed Patient: Lupillo Wang MR#: [id number] : 1975 Acct:[id number] Age/Sex: 49 / M ADM Date: 03/23/24 Loc: CARD Attending Dr: Arlyn Ward M.D. Ordering Physician: Arlyn Ward M.D. Date of Service: 03/23/24 Procedure(s): RT pulmonary function test Accession Number(s): [id number] cc: [facility] Test Date: 2024-03-23 Pat Name: Lupillo Wang Department: Room: - Gender: Male [place]: Steffi Alcaraz RRT : 1975 Requested By: ARLYN WARD Order Number: [id number] Reading MD: Gerardo Ho Interpretive Statements Pulmonary function testing was completed according to ATS criteria. Findings were considered accurate and reproducible. No bronchodilator was administered due to normal spirometric values. Prior PFTs are unable to be reviewed due to software limitations. -FEV1/FVC: Normal @ 83% -FEV1: Normal @ 103% -FVC: Normal @ 97% Lung volumes by plethysmography: -RV: Reduced @ 48% -TLC: Normal @ 89% Diffusion capacity: -DLCO: Normal @ 84% when corrected for Hb 14.6g/dL Impressions: -Normal spirometry and diffusion capacity. Reduced RV and normal TLC can be seen in an obesity pattern. If asthma remains in the differential, may consider methacholine challenge testing. Clinical correlation required. Electronically Signed On 03-25-2024 16:41:06 EDT by Gerardo Ho Dictated By: Gerardo Ho D.O. Signed By: 03/25/24 1641 DD/ 0625 TD/TT: Chaplain: [place] [address] Respiratory Report Signed Patient: Andrez Wang MR#: [id number] : 1975 Acct:[id number] Age/Sex: 49 / M ADM Date: 03/23/24 Loc: CARD Attending Dr: Carmen Ward M.D. Ordering Physician: Arlyn Ward M.D. Date of Service: 03/23/24 Procedure(s): RT pulmonary function test Accession Number(s): [id number] cc: [facility] Test Date: 2024-03-23 Pat Name: Lupillo Wang Department: 37 Room: - Gender: Male [place]: Steffi Alcaraz RRT : 1975 Requested By: ARLYN WARD Order Number: [id number] Reading MD: Gerardo Ho Interpretive Statements Pulmonary function testing was completed according to ATS criteria. Findings were considered accurate and reproducible. No bronchodilator was administered due to normal spirometric values. Prior PFTs are unabl e to be reviewed due to software limitations. -FEV1/FVC: Normal @ 83% -FEV1: Normal @ 103% -FVC: Normal @ 97% Lung volumes by plethysmography: -RV: Reduced @ 48% -TLC: Normal @ 89% Diffusion capacity: -DLCO: Normal @ 84% when corrected for Hb 14.6g/dL Impressions: -Normal spirometry a nd diffusion capacity. Reduced RV and normal TLC can be seen in an obesity pattern. If asthma remains in the differential, may consider methacholin e challenge testing. Clinical correlation required. Electronically Roslyn d On 03-25-2024 16:41:06 EDT by Gerardo Ho Dictated By: Gerardo Ho D.O. Signed By: 03/25/24 1641 DD/ 0625 TD/TT: Chaplain: XR chest 2V Reviewed date:03/26/2024 08:17:42 PM Interpretation: Performing Lab: Notes/Report: Source Facility: [place] [address] [place] [address] XRay Report Signed Patient: Lupillo Wang MR#: [id number] : 1975 Acct:[id number] Age/Sex: 49 / M ADM Date: 03/24/24 Loc: RAD Attending Dr: Arlyn Ward M.D. Ordering Physician: Arlyn Ward M.D. Date of Service: 03/24/24 Procedure(s): XR chest 2V Accession Number(s): [id number] cc: Arlyn Ward M.D. [place] [id number] Patient Name: LUPILLO WANG MRN: [id number] date: 1975 Sex: M Assigned Patient Location: RAD Current Patient Location: Accession/Order Number: [id number] Exam Date: 03/24/2024 16:03 Report Date: 03/26/2024 05:10 At the request of: ARLYN WARD Procedure: XR chest 2V EXAMINATION: XR chest 2V HISTORY: Chest Pain, Dyspnea COMPARISON: XR chest 01/16/2022 FINDINGS: LUNGS: No significant pulmonary parenchymal abnormalities. VASCULATURE: No increased pulmonary vasculature. PLEURA: No pneumothorax, effusion, or pleural thickening. CARDIAC: No cardiomegaly or cardiac silhouette abnormality. MEDIASTINUM: No visible mass or adenopathy. BONES: No fracture or visible bone lesion. OTHER: Negative. XR/XR chest 2V IMPRESSION: 1. No acute cardiopulmonary process or significant chronic changes. Stable chest. Electronically authenticated by: ROBIN BROWNLEE Date: 03/26/2024 05:10 Dictated By: Robin Brownlee M.D. Signed By: 03/26/[address] DD/ 9 TD/TT: Chaplain: [place] [address] XRay Report Signed Patient: Andrez Wang MR#: [id number] : 1975 Acct:[id number] Age/Sex: 49 / M ADM Date: 03/24/24 Loc: RAD Attending Dr: Carmen Ward M.D. Ordering Physician: Arlyn Ward M.D. Date of Service: 03/24/24 Procedure(s): XR stefanie st 2V Accession Number(s): [id number] cc: Arlyn Ward M.D. The [address] [address] Patient Name: LUPILLO WANG MRN: [id number] date: 1975 Sex: M Assigned Patient Location: RAD Current Patient Location: Accession/Order Numb er: [id number] Exam Date: 03/24/2024 16:03 Report Date: 03/26/2024 05:10 At the request of: ARLYN WARD Procedure: XR chest 2V EXAMINATION: XR ches t 2V HISTORY: Chest Pain, Dyspnea COMPARISON: XR chest 01/16/2022 FINDINGS: LUNGS: No significan t pulmonary parenchymal abnormalities. VASCULATURE: No increased pulmonary vasculature. PLEURA: No pneumothorax, effusion, or pleural thickening. CARDIAC: No cardiomegaly or cardiac silhouette abnormality. MEDIASTINUM: No visi ble mass or adenopathy. BONES: No fracture o r visible bone lesion. OTHER: Negative. XR/XR chest 2V IMPRESSION: 1. No acute cardiopulmonary process or significant chronic changes. Stable chest. Electronically authenticated by: ROBIN BROWNLEE Date: 03/26/2024 05:10 Dictated By: Robin Brownlee M.D. Signed By: 03/26/[address] DD/ TD/TT: Chaplain: CBC AUTO DIFF Reviewed date:05/11/2024 09:38:43 PM Interpretation: Performing Lab: Notes/Report: [facility] , White Blood Count 6.7 4.0-11.0 10 3/uL Red Blood Count 4.31 4.70-6.10 10 6/uL Hemoglobin 13.9 14.0-18.0 g/dL Hematocrit 40.6 42.0-54.0 % Mean Corpuscular Volume 94.2 80.0-94.0 fL Mean Corpuscular Hemoglobin 32.3 25.9-34.0 pg Mean Corpuscular HGB Conc 34.2 29.9-35.2 g/dL Red Cell Distribution Width 12.4 11.0-15.0 % Platelet Count 249 150-450 10 3/uL Mean Platelet Volume 9.8 9.5-13.5 fL Neutrophils Percent Auto 57.7 43.0-75.0 % Lymphocytes Percent Auto 25.4 20.5-60.0 % Monocytes Percent Auto 11.4 1.7-12.0 % Eosinophils Percent Auto 3.6 0.9-7.0 % Basophils Percent Auto 1.5 0.2-2.0 % Immature Granulocytes Pct Auto 0.4 0.0-0.5 % Neutrophils Absolute Auto 3.9 1.4-6.5 10 3/uL Lymphocytes Absolute Auto 1.7 1.2-3.8 10 3/uL Monocytes Absolute Auto 0.8 0.3-0.8 10 3/uL Eosinophils Absolute Auto 0.2 0.0-0.7 10 3/uL Basophils Absolute Auto 0.1 0.0-0.1 10 3/uL Immature Granulocytes Abs Auto 0.03 0.00-0.03 10 3/uL Performing Lab: see note ML - [facility] FREE T3 Reviewed date:05/11/2024 09:38:43 PM Interpretation: Performing Lab: Notes/Report: [facility] , Free T3 3.19 2.18-3.98 pg/mL Performing Lab: see note ML - [facility] GLYCOHEMOGLOBIN A1C Reviewed date:05/11/2024 09:38:43 PM Interpretation: Performing Lab: Notes/Report: [facility] , Glycohemoglobin A1C 5.9 4.5-6.2 % > 7.0 ADA RECOMMENDED LIMIT 4.0 - 6.0 ADA THERAPEUTIC TARGET < 7.0 ACTION SUGGESTED Estimated Average Glucose 123 Performing Lab: see note ML - [facility] LIPID PROFILE Reviewed date:05/11/2024 09:38:43 PM Interpretation: Performing Lab: Notes/Report: [facility] , Triglycerides 135 <=150 mg/dL Cholesterol 114 <=200 mg/dL HDL Cholesterol 36 40-60 mg/dL > or =60 mg/dl - LOW CARDIOVASCULAR RISK <40 mg/dl - HIGH CARDIOVASCULAR RISK LDL Cholesterol Calculated 51.0 160-189 mg/dl HIGH <100 mg/dl OPTIMAL 130-159 mg/dl BORDERLINE HIGH >190 mg/dl VERY HIGH 100-129 mg/dl NEAR OR ABOVE OPTIMAL VLDL CHOLESTEROL 27.0 Chol HDL Ratio 3.2 >11.0 HIGH RISK 4.4 - 7.1 AVERAGE RISK 7.1 - 11.0 MODERATE RISK 3.3 - 4.4 LOW RISK Performing Lab: see note ML - [facility] PROF 14(COMP METB) Reviewed date:05/11/2024 09:38:43 PM Interpretation: Performing Lab: Notes/Report: [facility] , Sodium 139 136-145 mmol/L Potassium 4.4 3.5-5.1 mmol/L Chloride 104 98-107 mmol/L Carbon Dioxide 27.1 21.0-32.0 mmol/L Anion Gap 12.3 Glucose 136 74-106 mg/dL Blood Urea Nitrogen 14.0 7.0-18.0 mg/dL Creatinine 0.81 0.70-1.30 mg/dL Estimated GFR ( Laxmi >60 >=60 Estimated GFR (Non- Peggy >60 >=60 BUN Creatinine Ratio 17.3 Calcium 9.0 8.5-10.1 mg/dL Bilirubin Total 0.7 0.2-1.0 mg/dL Aspartate Amino Transferase 32 15-37 U/L Alanine Aminotransferase 72 16-63 U/L Alkaline Phosphatase 83 46-116 U/L Total Protein 6.3 6.4-8.2 g/dL Albumin Level 3.4 3.4-5.0 g/dL Globulin 2.9 Albumin Globulin Ratio 1.2 Performing Lab: see note ML - [facility] LB PSA SCREENING Reviewed date:05/11/2024 09:38:43 PM Interpretation: Performing Lab: Notes/Report: [facility] , Prostate Specific Antigen Scrn 0.68 <=4.00 ng/mL Performing Lab: see note ML - [facility] LB T4 Reviewed date:05/11/2024 09:38:43 PM Interpretation: Performing Lab: Notes/Report: [facility] , T4 Thyroxine 8.50 4.50-12.10 ug/dL Performing Lab: see note ML - [facility] LB TSH Reviewed date:05/11/2024 09:38:43 PM Interpretation: Performing Lab: Notes/Report: [facility] , Thyroid Stimulating Hormone 2.082 0.358-3.740 uIU/mL Performing Lab: see note ML - [facility] LB Occult Blood* Reviewed date:05/13/2024 05:52:40 PM Interpretation: Performing Lab: Notes/Report: [facility] , Occult Blood Positive Performing Lab: see note ML - [facility] LB Lower Respiratory Culture Reviewed date:05/17/2024 09:21:27 PM Interpretation: Performing Lab: Notes/Report: [facility] , Lower Respiratory Culture See Below For Report WILL FOLLOW Lower Respiratory Culture Lower Respiratory Culture Routine respiratory georgiana WILL FOLLOW Lower Respiratory Culture Lower Respiratory Culture Performed at: [facility] [place] WILL FOLLOW Lower Respiratory Culture Lower Respiratory Culture [address] [place], [place] [id number] WILL FOLLOW Lower Respiratory Culture Lower Respiratory Culture Motor Equipment Sergeant: Enmanuel Hamilton PhD, Phone: [phone] WILL FOLLOW Lower Respiratory Culture Performing Lab: see note SEE REPORT - Dungeon Master Id information not found for OBX-specific promotion producer legend LC - [facility] LB Gram Stain Evaluation Reviewed date:05/17/2024 09:21:27 PM Interpretation: Performing Lab: Notes/Report: [facility] , Gram Stain Evaluation See Below For Report This specimen is of good quality and is acceptable for routine Gram Stain Evaluation Gram Stain Evaluation bacterial culture. This specimen is of good quality and is acceptable for routine Gram Stain Evaluation Performing Lab: see note LC - [facility] LB Result 4 Reviewed date:05/17/2024 09:21:27 PM Interpretation: Performing Lab: Notes/Report: [facility] , Result 4 See Below For Report Result 4 CORRECTIONAL COUNSELOR/CASE MANAGER Performing Lab: see note LC - [facility] LB Result 3 Reviewed date:05/17/2024 09:21:27 PM Interpretation: Performing Lab: Notes/Report: [facility] , Result 3 See Below For Report Few gram variable cocci Result 3 Performing Lab: see note LC - [facility] LB Result 2 Reviewed date:05/17/2024 09:21:27 PM Interpretation: Performing Lab: Notes/Report: [facility] , Result 2 See Below For Report Many gram positive cocci. Result 2 Performing Lab: see note LC - [facility] LB Result 1 Reviewed date:05/17/2024 09:21:27 PM Interpretation: Performing Lab: Notes/Report: [facility] , Result 1 See Below For Report Few gram negative rods. Result 1 Performing Lab: see note LC - [facility] LB Epithelial Cells Reviewed date:05/17/2024 09:21:27 PM Interpretation: Performing Lab: Notes/Report: [facility] , Epithelial Cells See Below For Report Few Epithelial Cells Performing Lab: see note LC - [facility] LB White Blood Cells Reviewed date:05/17/2024 09:21:27 PM Interpretation: Performing Lab: Notes/Report: [facility] , White Blood Cells See Below For Report White Blood Cells White Blood Cells Moderate White Blood Cells Performing Lab: see note LC - [facility] LB INSULIN Reviewed date:05/12/2024 02:39:17 PM Interpretation: Performing Lab: Notes/Report: [facility] , Insulin 42.4 2.6-24.9 uIU/mL [address] [place], [place] [id number] Performed at: - [facility] Motor Equipment Sergeant: Enmanuel Hamilton PhD, Phone: [phone] Performing Lab: see note LC - [facility] LB Reason For Referral Diagnosis 1 TRIPLETT (dyspnea on exer tion) (R06.09) Referral Organization [facility] Referring Provider First Name Rigoberto Referring Provider Last Name Miriam [facility] Referred Provider Gerardo Ho Referred Provider Specialty Pulmonary Di seases Referral Priority Routine Reason asthma - jass please Diagnosis 1 Well adult (Z00.00) Referring Provider First Name Rigoberto Referring Provider Last Name Miriam Referring Provider [facility] pepe Referred Organization Pul[facility] Referred Provider Gerardo Ho Referred Address [address] [place] [id number], Referred Provider Specialty Pulmonary Di seases General Notes Grant Persaud 05/04 04:46:28 PM >Referral received from today for Asthma. Ginger-spouse called stating told her that her needed to see a doctor for his breathing. Ginger was calling to schedule an appt. Ginger was asked if the insurance required a referral? Ginger verified that the insurance does not require a referral to a specialist. An appt. for 08/04/2024 at 1030 with . 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 . Ginger hung up. Patient is not scheduled as of now. Referral Priority Routine Reason asthma - jass please Diagnosis 1 Well adult (Z00.00) Referral Organization [facility] Referring Provider First Name Rigoberto Referring Provider Last Name Miriam [facility] Referred Provider Gerardo Ho Referred Provider Specialty Pulmonary Di seases Referral Priority Routine Diagnosis 1 Positive occult stoo l blood test (R19.5) Referral Organization [facility] Referring Provider First Name Rigoberto Referring Provider Last Name Miriam Ref[facility] Referred Provider Lupillo Cramer Referred Provider Specialty General Surg marcos Referral Priority Routine Medications Medication SIG (Take, Route, Frequency, Duration) Notes Start Date End Date Status Dupixent 300 MG/2ML INJECT 300MG SubQ every other week for 90 days Active Atorvastatin Calcium 40 MG TAKE 1 TABLET BY MOUTH ONCE DAILY Orally Once a day for 90 days Active Test Strips - 1 strip once daily Dx: Diabetes Type II Daily for 90 days Drug [place] Brand 12/28/2022 Active Cephalexin 500 MG 2 tabs Orally bid for 10 days 02/01/2025 Active Glucometer - - Dx: Diabetes Type II as directed for 365 days 12/28/2022 Active ZyrTEC Allergy 10 MG 1 tablet Orally Onc e a day Active Jardiance 10 MG 1 tablet Orally Once a day for 90 days 01/01/2025 Active Allopurinol 100 MG TAKE 1 TABLET BY MOUTH DAILY for 90 days Active Multivitamin - 1 tablet Orally Once a day Active Advil 200 MG 1 tablet with food or milk as needed Orally Three times a day Active Metoprolol Succinate ER 50 MG TAKE 1 TABLET BY MOUTH ONCE DAILY for 90 Active Aspirin 81 81 MG 1 tablet Orally Once a day Active Protonix 40 MG 1 tablet Orally twice daily for 90 days 08/24/2024 Active Amiodarone HCl 200 MG Oral for 90 Days Active Nitroglycerin 0.4 MG 1 tablet under the tongue and allow to dissolve as needed. Take every 5 minutes up to 3 times if chest pain persists Sublingual Three times a day for 30 days 08/11/2024 Active Irbesartan 150 MG TAKE 1 TABLET BY MOUTH ONCE DAILY for 90 days Active Ventolin HFA 108 (90 Base) MCG/ACT USE 1 INHALATION BY MOUTH EVERY 4 HOURS NEEDED for 90 Active HYDROcodone-Acetaminoph en 5-325 MG 1 tablet Orally QID as needed for 30 days 01/07/2025 Active Melatonin 5 MG as directed Orally Active Lancets - as directed Dx: Diabetes Type II Daily for 90 days 12/28/2022 Active Immunizations Vaccine Route Administration Date Status Comme nts Flu, Flucelvax (4109-5148) (45318) 6 mos +, single-dose syringe IM Intramuscular 05/31/2023 Administered Flu, Flucelvax (08200) 6 mos and older, single-dose syringe IM Intramuscular 06/05/2024 Administered Social History Tobacco Use: Social History Observation Description Date Details (start date - stop date) Former Smoker 08/26/1985 - 08/26/2018 Tobacco Use/Smoking Question Answer Notes Patient is a former smoker When did you start smoking? 08/26/1985 When did you stop smoking? 08/26/2018 Alcohol Screen (Audit-C) Question Answer Notes Did you have a drink containing alcohol in the p ast year? No Points 0 Interpretation Negative AUDIT-C (Standard) Question Answer Notes Did you have a drink containing alcohol in the p ast year? 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) Osteochondrosis (juvenile) of carpal lunate [[place]], unspecified hand (M92.219) Active confirmed Problem Juvenile osteochondrosis of upper extremity (71415822) Other juvenile osteochondrosis, unspecified upper limb (M92.30) Active confirmed Problem Chest pain (61341356) Chest pain (R07.9) Active confirmed Problem Osteoarthritis (234458607) Osteoarthritis (M19.90) Active confirmed Problem Chronic obstructive pulmonary disease (81728786) Chronic obstructive pulmonary disease (COPD) (J44.9) Active confirmed Problem Asthma (812039603) Asthma (J45.909) Active conf irmed Problem Tricuspid regurgitation (224644037) Tricuspid regurgitation (I07.1) Active confirmed Problem Coronary artery disease (09472134) CAD (coronary artery disease) (I25.10) Active confirmed Problem Coronary artery disease (34649390) Coronary artery disease (I25.10) Active confirmed Problem Gout (53467564) Gout (M10.9) Active confirmed Problem Dyspnea (819091974) Dyspnea (R06.00) Active con firmed Problem Sleep apnea (86200504) Sleep apnea (G47.30) Active confirmed Problem Eczema (91880369) Eczema (L30.9) Active confirm ed Problem Abdominal bloating (515732348) Abdominal bloating (R14.0) Active confirmed Problem Pain in limb (57277941) Pain in joint, hand (M79.643) Active confirmed Problem Arthralgia of the pelvic region and thigh (587519471) Hip pain, left (M25.552) Active confirmed Problem Hypertriglyceridemia (506984997) Hypertriglyceridemia (E78.1) Active confirmed Problem Arthralgia (42044597) Arthralgia (M25.50) Active confirmed Problem Well adult (601198175) Well adult (Z00.00) Active confirmed Problem Pain in limb (07975129) Hand pain, left (M79.642) Active confirmed Problem Dyshidrotic eczema (665485564) Dyshidrotic eczema (L30.1) Active confirmed Problem Plantar fascial fibromatosis (48285268) Plantar fascia syndrome (M72.2) Active confirmed Problem Seasonal allergic rhinitis (567119932) Allergic rhinitis, seasonal (J30.2) Active confirmed Problem Right upper quadrant pain (202333277) Abdominal pain, RUQ (R10.11) Active confirmed Problem Carpal tunnel syndrome (76825636) Carpal tunnel syndrome, left (G56.02) Active confirmed Problem Ankle edema (67090426) Ankle edema (R60.0) Active confirmed Problem Abnormal results of cardiovascular function studies (566451073) Cardiac LV ejection fraction >40% (R94.30) Active confirmed Problem Pain in wrist (38538096) Wrist pain, acute, right (M25.531) Active confirmed Problem Prolapse of lumbar intervertebral disc without radiculopathy (55170063808398) Prolapse of lumbar intervertebral disc without radiculopathy (M51.26) Active confirmed Vital Signs Blood pressure diastolic 80 mm Hg 01/01/2025 Height 69 in 01/01/2025 Blood pressure systolic 134 mm Hg 01/01/2025 Weight 209.0 lbs 01/01/2025 BMI 30.86 kg/m2 01/01/2025 Procedures Procedure Date Ordered Date Performed Result Body Sit e PFT Complete 03/03/2024 N/A Sleep Study: Retitration BIPAP/CPAP 01/01/2025 N/A Encounters Encounter Location Date Provider Diagnosis [facility] [address] [place] [address] 02/01/2025 Rigoberto Ward [facility] [address] [place] [address] 02/17/2025 Rigoberto Ward CAD (coronary artery disease) I25.10 [facility] [address] [place] [address] 01/01/2025 Rigoberto Ward [facility] [address] [place] [address] 01/01/2025 Rigoberto Ward Well adult Z00.00 [facility] [address] [place] [address] 01/03/2025 Rigoberto Ward [facility] [address] [place] [address] 01/05/2025 Rigoberto Ward [facility] [address] [place] [address] 01/07/2025 Rigoberto Ward Other intervertebral disc displacement, lumbar region M51.26 [facility] [address] [place] [address] 01/20/2025 Rigoberto Ward Well adult Z00.00 [facility] [address] [place] [address] 08/24/2024 Rigoberto Ward [facility] [address] [place] [address] 09/09/2024 Rigoberto Ward [facility] [address] [place] [address] 09/09/2024 Rigoberto Ward [facility] [address] [place] [address] 10/02/2024 Rigoberto Ward Other intervertebral disc displacement, lumbar region M51.26 [facility] [address] [place] [address] 11/06/2024 Rigoberto Ward [facility] [address] [place] [address] 11/25/2024 Rigoberto Ward [facility] [address] [place] [address] 06/08/2024 Rigoberto Ward Chronic obstructive pulmonary disease (COPD) J44.9 [facility] [address] [place] [address] 07/30/2024 Rigoberto Ward Chronic obstructive pulmonary disease (COPD) J44.9 [facility] [address] [place] [address] 08/11/2024 Rigoberto Ward [facility] [address] [place] [address] 08/11/2024 Rigoberto Ward [facility] [address] [place] [address] 08/13/2024 Rigoberto Ward [facility] [address] [place] [address] 08/14/2024 Rigoberto Ward [facility] [address] [facility] [place] [address] 05/12/2024 Rigoberto Ward [facility] [address] [facility] [place] [address] 05/12/2024 Rigoberto Ward Positive occult stoo l blood test R19.5 [facility] [address] [facility] [place] [place] [address] 05/15/2024 Rigoberto Ward [facility] [address] [place] [place] [address] 05/27/2024 Gerrado Ho [facility] [address] [facility] [place] [address] 05/28/2024 Rigoberto Ward [facility] [address] [facility] [place] [address] 06/05/2024 Rigoberto Ward Chronic obstructive pulmonary disease (COPD) J44.9 [facility] [address] [facility] [place] [address] 05/04/2024 Rigoberto Ward SOB (shortness of breath) R06.02 and Chronic obstructive pulmonary disease (COPD) J44.9 [facility] [place] [address] [place] [place] [address] 05/04/2024 Gerardoluis Ho [facility] [address] [place] [address] 05/05/2024 Rigoberto Hoy [facility] [address] [place] [address] 05/11/2024 Rigoberto Hoy Acute cough R05.1 [facility] [address] [place] [address] 05/11/2024 Rigoberto Hoy [facility] [address] [place] [address] 05/12/2024 Rigoberto Hoy [facility] [address] [place] [address] 03/24/2024 Rigoberto Hoy Chest pain R07.9 and Dyspnea R06.00 [facility] [address] [place] [address] 03/25/2024 Rigoberto Hoy [facility] [address] [place] [address] 03/26/2024 Rigoberto Hoy [facility] [address] [place] [address] 04/03/2024 Rigoberto Hoy TRIPLETT (dyspnea on exertion) R06.09 [facility] [address] [place] [address] 04/09/2024 Rigoberto Hoy CAD (coronary artery disease) I25.10 and Chest pain R07.9 [facility] [address] [place] [address] 04/15/2024 Rigoberto Hoy Other intervertebral disc displacement, lumbar region M51.26 [facility] [address] [place] [address] 03/03/2024 Rigoberto Hoy SOB (shortness of breath) R06.02 and TRIPLETT (dyspnea on exertion) R06.09 [facility] [address] [place] [address] 03/09/2024 Rigoberto Hoy Chest pain R07.9 [facility] [address] [place] [address] 06/05/2024 Rigoberto Ward Chronic obstructive pulmonary disease (COPD) J44.9 and Encounter for immunization Z23 [facility] [address] [place] [address] 05/04/2024 Rigoberto Ward Well adult Z00.00 [facility] [address] [place] [address] 05/29/2024 Rigoberto Ward Chronic obstructive pulmonary disease (COPD) J44.9 [facility] [address] [place] [address] 01/01/2025 Rigoberto Ward Well adult Z00.00 ; Wrist pain, acute, right M25.531 ; Ventricular tachyarrhythmia I47.20 ; Coronary artery disease I25.10 and Sleep apnea G47.30 Assessments Encounter Date Diagnosis (ICD Code) Assessment Notes Treatment Notes Treatment Clinical Notes Section Notes 03/03/2024 SOB (shortness of breath) (ICD-10 - R06.02) 03/03/2024 TRIPLETT (dyspnea on exertion) (ICD-10 - R06.09) 03/09/2024 Chest pain (ICD-10 - R07.9) 03/24/2024 Chest pain (ICD-10 - R07.9) 03/24/2024 Dyspnea (ICD-10 - R06.00) 04/03/2024 TRIPLETT (dyspnea on exertion) (ICD-10 - R06.09) 04/09/2024 CAD (coronary artery disease) (ICD-10 - I25.10) 05/04/2024 Well adult (ICD-10 - Z00.00) 05/29/2024 Chronic obstructive pulmonary disease (COPD) (ICD-10 - J44.9) lungs clear cleard for oR 06/05/2024 Chronic obstructive pulmonary disease (COPD) (ICD-10 - J44.9) 04/15/2024 Other intervertebral disc displacement, lumbar region (ICD-10 - M51.26) 05/04/2024 SOB (shortness of breath) (ICD-10 - R06.02) 05/04/2024 Chronic obstructive pulmonary disease (COPD) (ICD-10 - J44.9) 05/11/2024 Acute cough (ICD-10 - R05.1) 05/12/2024 Positive occult stool blood test (ICD-10 - R19.5) 06/05/2024 Chronic obstructive pulmonary disease (COPD) (ICD-10 - J44.9) 06/08/2024 Chronic obstructive pulmonary disease (COPD) (ICD-10 - J44.9) 07/30/2024 Chronic obstructive pulmonary disease (COPD) (ICD-10 - J44.9) 10/02/2024 Other intervertebral disc displacement, lumbar region (ICD-10 - M51.26) 01/01/2025 Well adult (ICD-10 - Z00.00) 01/07/2025 Other intervertebral disc displacement, lumbar region (ICD-10 - M51.26) 01/20/2025 Well adult (ICD-10 - Z00.00) 02/17/2025 CAD (coronary artery disease) (ICD-10 - I25.10) 01/01/2025 Well adult (ICD-10 - Z00.00) 01/01/2025 Wrist pain, acute, right (ICD-10 - M25.531) 01/01/2025 Ventricular tachyarrhythmia (ICD-10 - I47.20) seeing Dr Ybarra for v-tach - 06/05/2024 Encounter for immunization (ICD-10 - Z23) 04/09/2024 Chest pain (ICD-10 - R07.9) 01/01/2025 Coronary artery disease (ICD-10 - I25.10) 01/01/2025 Sleep apnea (ICD-10 - G47.30) Plan Of Treatment Pending Test Test Name Order Date CMP (COMPLETE METABOLIC PANEL) 3 CMP (COMPLETE METABOLIC PANEL) 4 HEMOGLOBIN A1C (GLYCO) 05/31/2023 HEMOGLOBIN A1C (GLYCO) 05/04/2024 INSULIN, TOTAL 05/04/2024 INSULIN, TOTAL 05/31/2023 LIPID PANEL (CHOL/TRIG/HDL/LDL) 05/04/20 24 LIPID PANEL (CHOL/TRIG/HDL/LDL) 05/31/20 23 CBC WITH DIFF 05/31/2023 CBC WITH DIFF 05/04/2024 PSA, PROSTATE-SPECIFIC ANTIGEN 3 URIC ACID 05/31/2023 EKG w Interp & Report - performed 2023 PFT Complete 03/03/2024 Sleep Study: Retitration BIPAP/CPAP 04/2025 Cardiolyte Stress Test 02/12/2024 PSA, TOTAL 05/04/2024 STOOL OCCULT BLOOD 05/04/2024 STOOL OCCULT BLOOD 05/31/2023 COMPLIANCE DRUG SCREEN 06/04/2023 CULTURE SPUTUM 05/11/2024 CT CHEST WO CON 03/03/2024 XR CHEST 2 V 03/24/2024 THYROID PANEL (T4/TSH/FREE T3) 4 THYROID PANEL (T4/TSH/FREE T3) 3 THYROID PANEL (T4/TSH/FREE T3) 3 Insurance Providers Payer Name Payer Address Payer Phone Subscriber Number Group Number Insured Name Patient Relationship to Insured Coverage Start Date Coverage End Date [employer] PPO PLUS LOCAL PLAN [address] [place] [phone] [id number] Lupillo Wang Self - patient is the insured Medical (General) History Medical History History ICD Code Gout M10.9 CAD (coronary artery disease) I25.10 Tricuspid regurgitation I07.1 Cardiac LV ejection fraction >40% R94.30 Chest pain R07.9 Ankle edema R60.0 Well adult Z00.00 Pain in left wrist M25.532 Hypertriglyceridemia E78.1 Other specified disorders of tendon, lef t elbow M67.824 Hand pain, left M79.642 Dyshidrotic eczema L30.1 Pain in joint, hand M79.643 Prolapse of lumbar intervertebral disc w ithout radiculopathy M51.26 Hip pain, left M25.552 Arthralgia M25.50 Osteoarthritis M19.90 Osteochondrosis (juvenile) of carpal leandro ate [[place]], unspecified hand M92.219 Other juvenile osteochondrosis, unspecif ied upper limb M92.30 Chronic obstructive pulmonary disease (C OPD) J44.9 Carpal tunnel syndrome, left G56.02 Eczema L30.9 Surgical History Surgery Date(Month/Year) Pacemaker, Defibulator 08/2024 Heart Cath 07/2024 Right Knee surgery x2 Right shoulder sx- torn rotator cuff heart cath 12/2020 displaced fracture of lunate 11/2011 Hospitalization History Reason Date(Month/Year) see above
--- OUTSIDE RECORDS SUMMARY | 2025-03-03 20:52 | XMS_ITS | Clinical Summary ---
Author Organization [facility] Address [address] [place] [address] Care Team Providers Care Biostatistics Professor Name Role Phone Terrell Pineda MD Primary Care Provider [phone] Allergies Active Allergy Reactions Criticality Noted Date Comments Hydrocortisone-Pramoxine Rash Low 06/16/2019 Ketorolac Other 08/24/2024 Latex Other,Hives,Rash High 01/14/2012 Meperidine Other 02/02/2025 Nickel Other,Hives,Rash High 01/14/2012 Oxycodone-Acetaminophen Hives,Nausea And Vomiting High 01/14/2012 Tramadol Other 01/14/2012 Stomach pain Medications nitroglycerin (Nitrostat) 0.[address] 0.4 mg under the tongue every 5 (five) minutes if needed. 5 Active amiodarone (Pacerone) 200 mg tablet Take 200 mg by mouth in the morning. 5 Active allopurinol (Zyloprim) 100 mg tablet Take 100 mg by mouth in the morning. 4 Active aspirin 81 mg EC tablet Take 81 mg by mouth in the morning. 4 Active atorvastatin (Lipitor) 40 mg tablet Take 40 mg by mouth at bedtime. 4 Active cetirizine (ZyrTEC) 10 mg tablet Take 10 mg by mouth in the morning. 2 Active cholecalcifero l (Vitamin D-3) 50 MCG (1999 UT) tablet Take 2,000 Units by mouth in the morning. 5 Active DOCOSAHEXAENOI C ACID ORAL Take 1,000 mg by mouth in the morning. Active dupilumab (Dupixent Pen) 300 mg/2 mL pen injector Inject under the skin every 14 (fourteen) days. 4 Active Jardiance 10 mg Take 10 mg by mouth in the morning. 5 Active pantoprazole (ProtoNix) 40 mg EC tablet Take 40 mg by mouth twice a day. Active HYDROcodone-ac etaminophen ([place]) 5-325 mg tablet take 1 tablet by mouth 4 times a day as needed Active metoprolol succinate XL (Toprol-XL) 50 mg 24 hr tablet Take 50 mg by mouth in the morning. 4 Active potassium gluconate 500 mg (83 mg) tablet Take 1 tablet by mouth in the morning. 5 Active magnesium 250 mg tablet See administration instructions. 5 Active irbesartan (Avapro) 150 mg tablet Take 150 mg by mouth in the morning. 4 Active Active Problems Problem Noted Date Diagnosed Date BMI 30.0-30.9,adult 02/02/2025 Diabetes 02/02/2025 Dyshidrotic eczema 02/02/2025 Family history of colon cancer 02/02/2025 Gout 02/02/2025 Juvenile osteochondrosis of upper extremity 01/24 Obesity due to excess calories 02/02/2025 Occult blood in stools 02/02/2025 Seasonal allergic rhinitis 02/02/2025 Tricuspid valve regurgitation 02/02/2025 Non-cardiac chest pain 09/07/2024 Ventricular tachycardia 09/07/2024 COPD (chronic obstructive pulmonary disease) Overview (02/02/2025): With bronchiectasis Coronary arteriosclerosis 05/02/2021 Dyspnea on exertion 05/02/2021 Hyperlipidemia 05/02/2021 Hypertension 05/02/2021 Left ventricular systolic dysfunction 05/02/2021 Wrist pain, left 10/02/2013 Arthritis 09/10/2012 Right arm pain 09/10/2012 [place]ien[place]eck disease of adults 04/14/2012 Encounters Date Type Department Care Team Description 02/03/2025 Telephone [facility] [address] [place] [address] Nancy Pitt MA Appointment (Reschedule) 02/02/2025 2:15 PM EDT Office Visit [address] [phone] Aguilar Ybarra MD ICD (implantable cardioverter-defibril lator), dual, in situ (Primary Dx) 02/01/2025 Orders Only [place] [address] [place] [phone] Provider, MD Ethel from Last 3 Months Family History Medical History Relation Name Comments Atrial fibrillation Brother Hypertension Brother Pancreatic cancer Father Atrial fibrillation Mother Hypertension Mother ventricular tachycardia Sister Relation Name Status Comments Brother Father Mother Sister Social History Tobacco Use Types Packs/Day Years Used Date Smoking Tobacco: Former Cigarettes Smokeless Tobacco: Never Tobacco Cessation:Counseling Given: Not Answered [place] Safety & Environment Answer Date Rec orded Fear of Current or Ex-Partner Not on file Emotionally Abused Not on file 10/17/2023 Physically Abused Not on file 10/17/2023 Sexually Abused Not on file 10/17/2023 Physically or Sexually Abused Not on file Sex and Gender Information Value Date Recorded Sex Assigned at Male 08/11/2024 9:39 AM EST Legal Sex Male 12:36 AM EDT Gender Identity Male 08/11/2024 9:39 AM EST Sexual Orientation Not on file Last Filed Vital Signs Vital Sign Reading Time Taken Comments Blood Pressure 132/85 02/02/2025 2:54 PM EDT Pulse 67 02/02/2025 2:54 PM EDT Temperature - - Respiratory Rate - - Oxygen Saturation 95% 02/02/2025 2:54 PM EDT Inhaled Oxygen Concentration - - Weight 94.3 kg (208 lb) 02/02/2025 2:54 PM EDT Height 175.3 cm (5' 9 ) 02/02/2025 2:54 PM EDT Body Mass Index 30.72 02/02/2025 2:54 PM EDT Plan of Treatment Health Maintenance Due Date Last Done Comments CT Colonography 1973 Colonoscopy 1973 Colorectal Cancer Screening 1973 Diabetes: Hemoglobin A1C 1973 FIT-DNA 1973 FIT 1973 FOBT 1973 Sigmoidoscopy 1973 Diabetes: Retinopathy Screening 1983 Depression Screening 1985 Diabetes: Urine Protein Screening 1992 Hepatitis B Vaccines (1 of 3 - 19+ 3-dose series) 1992 Pneumococcal Vaccine: Pediatrics (0 to 5 Years) and At-Risk Patients (6 to 64 Years) (1 of 2 - PCV) 1992 Adult Tetanus 1995 COVID-19 Vaccine ( season) 2024 05/08/2024, 06/05/2023, 06/01/2022, Additional history exists Zoster Vaccines (2 of 2) 07/03/2024 05/08/2024 Influenza Vaccine (#1) 2025 , 06/06/2022, 05/26/2021, Additional history exists HIB Vaccines Aged Out No longer eligi ble based on patient's age to complete this topic HPV Vaccines Aged Out No longer eligi ble based on patient's age to complete this topic IPV Vaccines Aged Out No longer eligi ble based on patient's age to complete this topic Meningococcal B Vaccine Aged Out No l onger eligible based on patient's age to complete this topic Meningococcal Vaccine Aged Out No saul melo eligible based on patient's age to complete this topic Rotavirus Vaccines Aged Out No longer eligible based on patient's age to complete this topic Insurance [facility] Care Teams Biostatistics Professor Relationship Specialty Start Date End Date Terrell Pineda MD [address] [place] [address] PCP - General 11/21/22
--- OUTSIDE RECORDS SUMMARY | 2025-03-03 20:52 | XMS_ITS | Encounter Summary ---
Author Organization [facility] Address [address] [place] [address] Care Team Providers Care Corrosion Technician Name Role Phone Terrell Pineda MD Primary Care Provider [phone] Reason for Visit * Reason Onset Date Comments Appointment (Reschedule) 02/03/2025 Encounter Details Date Type Department Care Team ([facility] Contact Info) Description 02/03/2025 Telephone [facility] [address] [place] [phone] Nancy Pitt MA Appointment (Reschedule) Social History Tobacco Use Types Packs/Day Years Used Date Smoking Tobacco: Former Cigarettes Smokeless Tobacco: Never [place] Safety & Environment Answer Date Rec [...] AM EST Sexual Orientation Not on file documented as of this encounter Miscellaneous Notes * Telephone Encounter - Nancy Pitt MA - 02/03/2025 9:02 AM EDT 02/03/2025 Pt's spouse (Ginger) called to reschedule, pt won't be able to make appt today (spousehas a dentist appt). Pt request to be scheduled latest appt; pt rescheduled on 02/16/2025 at 2:30 pm. documented in this encounter Plan of Treatment Not on file documented as of this encounter Visit Diagnoses Not on filedocumented in this encounter Care Teams Corrosion Technician Relationship Specialty Start Date End Date Terrell Pineda MD [address] [facility] [place] [address] PCP - General 11/21/22 documented as of this encounter
== END 2025-03-03 20:50 | disposition home or self-care (01) ==
LOC: SLEEP 20:50
PROVIDERS: PCP Family Medicine; Visit Provider Family Medicine
DX: G47.33 Obstructive sleep apnea (adult) (pediatric) (principal); J44.9 Chronic obstructive pulmonary disease, unspecified; I25.10 Atherosclerotic heart disease of native coronary artery without angina pectoris; I10 Essential (primary) hypertension
CPT/HCPCS: 95811

== ENCOUNTER 2025-05-26 08:46 | Outpatient (OUT) | payer BC, SELFPAY ==
--- OUTSIDE RECORDS SUMMARY | 2025-02-02 13:59 | XMS_ITS ---
Author Name [employer] Organization OHIP Care Team Providers Care [employer] Supervisor Name Role Phone Lupillo Cramer Attending Lupillo Judge Admitting Unavailable Lupillo CRAMER Attending Unavailable AGUILAR YBARRA Unavailable PROBLEMS No Problem Records Found PROCEDURES No Procedure Records Found RESULTS 36 Observed: 02/03/2025 9:02 AM Status: COMPLETED Source: [facility] 02/03/2025 Pt's spouse (Hiro rust) called to reschedule, pt won't be able to make appt today (spouse has a dentist appt). Pt request to be scheduled latest appt; pt rescheduled on 02/16/2025 at 2:30 pm. TELEPHONE Observed: 02/03/2025 12:00 AM Status: COMPLETED Source: [facility] [id number] Lupillo Wang M Date Provider Department Center 02/03/2025 [id number] [facility] CARD [facility] Family History Problem Relation Age of Onset Atrial fibrillation Mother Hypertension Mother Pancreatic cancer Father Other Sister Atrial fibrillation Brother Hypertension Brother Family Status - Relation Status Age at Mother Father Sister Brother Reason for Visit and Comments: Appointment (Reschedule) [Other] OFFICE VISIT Observed: 02/02/2025 2:15 PM Status: COMPLETED Source: [facility] [id number] Lupillo Wang 0 1975 M Date Provider Department Center 02/02/2025 [id number] YBARRA CARD [facility] Family History Problem Relation Age of Onset Atrial fibrillation Mother Hypertension Mother Pancreatic cancer Father Other Sister Atrial fibrillation Brother Hypertension Brother Family Status - Relation Status Age at Mother Father Sister Brother Level of Service:96152 MS OFFICE/OUTPATIENT NEW MODERATE MDM 45 MINUTES PROGRESS Observed: 02/02/2025 2:15 PM Status: COMPLETED Source: [facility] Electrophysiology [facility] Note [facility] Reason for visit: VT s/p ICD HPI: Lupillo Wang is a 49 y.o. year old with no previous cardiac history presented to local hospitalization with wide-complex tachycardia. He was noted to have some chest discomfort and positive troponins and so had a follow-up cardiac cath which revealed no evident luminal irregularities. Given an echocardiogram showing 50% EF and outpatient event monitor showing wide-complex tachycardia that lasted 2 minutes a cardiac MRI was subsequently done which showed evidence of late gadolinium enhancement in the subepicardial region in the basal to distal anterolateral and inferolateral wall and additional region in the mid myocardial segment involving the septal and distal inferior wall raising the possibility of myocarditis. Thereafter he was taken for an EP studywhere ventricular tachycardia was induced and thereafter he received a dual-chamber Medtronic MRI compatible ICD. Since then further interrogation revealed that he was predominantly atrial paced around 14% of the time and episodes of nonsustained VT with normal. He had a subsequent follow-up with cardiac PET scan which was negative for sarcoid. Further device checks's revealed 1 episode of VT that is successfully terminated with ATP. He has been placed on amiodarone since August 2024 Upon conversing with the patient and his they state that they are placing some trial. The device transmission is being sent to [place] and therefore I am not able to procure any information. PMH: Past Medical History: Diagnosis Date Abnormal ECG Arrhythmia COPD (chronic obstructive pulmonary disease) (CMS/HCC) Hyperlipidemia Hypertension VT (ventricular tachycardia) (CMS/[facility]) PSH: Past Surgical History: Procedure Laterality Date CARDIAC CATHETERIZATION INSERT / REPLACE / REMOVE PACEMAKER WRIST SURGERY SH: Social Determinants of Health Tobacco Use: Medium Risk (02/02/2025) Patient History Smoking Tobacco Use: Former Smokeless Tobacco Use: Never Passive Exposure: Not on file Alcohol Use: Not At Risk (06/16/2019) Received from [facility] [employer] Frequency of Alcohol Consumption: Never Average Number of Drinks: Not on file Frequency of Binge Drinking: Not on file Financial Resource Strain: Not on file Food Insecurity: No Food Insecurity (09/08/2024) Received from [facility] Hunger Vital Sign Worried About Running Out of Food in the Last Year: Never true Ran Out of Food in the Last Year: Never true Transportation Needs: Unknown (09/08/2024) Received from [facility] - Transportation Lack of Transportation (Medical): Not on file Lack of Transportation (Non-Medical): No Physical Activity: Not on file Stress: Not on file Social Connections: Low Risk (05/19/2024) Received from [facility] Family and Community Support Help with Day to Day Activities: Not on file Feeling Lonely or Isolated: Not on file Intimate Partner Violence: Unknown (09/08/2024) Received from [facility] Humiliation, Afraid, Rape, and Kick questionnaire Fear of Current or Ex-Partner: No Emotionally Abused: No Physically Abused: No Sexually Abused: Not on file Depression: Unknown (05/19/2024) Received from [facility] [employer] Depression PHQ-2 Risk: Not on file Housing Stability: Unknown (09/08/2024) Received from [facility] Housing Stability Vital Sign Unable to Pay for Housing in the Last Year: Not on file Number of Times Moved in the Last Year: Not on file In the last 12 months, was there a time when you did not have a steady place to sleep or slept in a nursing home (including now)?: No Utilities: Low Risk (09/08/2024) Received from [facility] Utilities In the past 12 months has the [employer], [employer], oil or water [employer] threatened to shut off services in your home?: No Health Literacy: Not on file Allergies: Allergies Allergen Reactions Latex Other, Hives and Rash Nickel Other, Hives and Rash Oxycodone-Acetaminophen Hives and Nausea And Vomiting Ketorolac Other Meperidine Other Tramadol Other Stomach pain Hydrocortisone-Pramoxine Rash Weight: 94.3kg Visit Vitals BP 132/85 (BP Location: Left arm, Patient Position: Sitting) Pulse 67 Ht 1.753 m (5' 9 ) Wt 94.3 kg (208 lb) SpO2 95% BMI 30.72 kg/m??? Smoking Status Former BSA 2.14 m??? Meds: Current Outpatient Medications on File Prior to Visit Medication Sig Dispense Refill allopurinol (Zyloprim) 100 mg tablet Take 100 mg by mouth in the morning. amiodarone (Pacerone) 200 mg tablet Take 200 mg by mouth in the morning. aspirin 81 mg EC tablet Take 81 mg by mouth in the morning. atorvastatin (Lipitor) 40 mg tablet Take 40 mg by mouth at bedtime. cetirizine (ZyrTEC) 10 mg tablet Take 10 mg by mouth in the morning. cholecalciferol (Vitamin D-3) 50 MCG (2000 UT) tablet Take 2,000 Units by mouth in the morning. DOCOSAHEXAENOIC ACID ORAL Take 1,000 mg by mouth in the morning. dupilumab (Dupixent Pen) 300 mg/2 mL pen injector Inject under the skin every 14 (fourteen) days. HYDROcodone-acetaminophen ([place]) 5-325 mg tablet take 1 tablet by mouth 4 times a day as needed irbesartan (Avapro) 150 mg tablet Take 150 mg by mouth in the morning. Jardiance 10 mg Take 10 mg by mouth in the morning. magnesium 250 mg tablet See administration instructions. metoprolol succinate XL (Toprol-XL) 50 mg 24 hr tablet Take 50 mg by mouth in the morning. nitroglycerin (Nitrostat) 0.[address] 0.4 mg under the tongue every 5 (five) minutes if needed. pantoprazole (ProtoNix) 40 mg EC tablet Take 40 mg by mouth twice a day. potassium gluconate 500 mg (83 mg) tablet Take 1 tablet by mouth in the morning. No current facility-administered medications on file prior to visit. ROS: Review of Systems Constitutional: Positive for diaphoresis. Cardiovascular: Positive for dyspnea on exertion and leg swelling (intermittent). Respiratory: Positive for cough and wheezing. All other systems reviewed and are negative. Physical Exam: Constitutional General Appearance: well-nourished, well-developed, appears stated age Level of Distress: comfortable Eyes JASWANT Neck Neck: supple, trachea midline Carotid Arteries: bilateral normal upstroke, no bruits Jugular Veins: normal jugular venous pressure Thyroid: not enlarged Lungs Respiratory Effort: unlabored Chest Exam: normal curvature, no thoracic deformity Auscultation: clear, no wheezing, no rales, no rhonchi Cardiovascular Chest wall: Rate And Rhythm: regular Heart Sounds: normal S1, normal s2, no gallop Systolic Murmur: not heard Diastolic Murmur: not heard Extremities: no cyanosis, no edema, no peripheral signs of emboli Peripheral Pulses Radial Pulse: normal Abdomen Inspection and Palpation: soft, non distended, no bruit, non tender Neurologic Gait: normal gait Labs: @LABRESULTS@ No results found for: CHOLESTEROL TOTAL , HDL , LDL CALC , LDL DIRECT , TRIGLYCERIDES , TSH , T3 TOTAL , T4 TOTAL , THYROID PEROXIDASE AB , BNP EKG: No results found for this or any previous visit (from the past 4464 hour(s)). Echo: Stress test: Coronary angiogram: 08/13/2024 Cardiac Arteries and Lesion Findings Dominance: Right LMCA: Normal. LAD: Small to medium caliber vessel mid to distal. Luminal irregularities. Small caliber, long diagonal which is normal. LCx: Large-caliber vessel. Small caliber, long first obtuse marginal. Medium caliber, long multi branching second obtuse marginal. The circumflex and its branches have luminal irregularities. RCA: Small caliber, dominant vessel. Normal. Pressures (mmHg) +-----+ + !Site !Pressure ! +-----+ + !AO !115/77 (94) ! +-----+ + !LV !116/7 ,9 ! +-----+ + Valve Gradients and Areas + +---------+---------+---------+ +---------+ + !Valve !Peak !Mean !Area !Index !Flow !Source ! + +---------+---------+---------+ +---------+ + !Aortic !1 !5 ! ! ! ! ! + +---------+---------+---------+ +---------+ + !Aortic !1 !5 ! ! ! ! ! + +---------+---------+---------+ +---------+ + Pressures (mmHg) +-----+ + !Site !Pressure ! +-----+ + !AO !117/79 (98) ! +-----+ + !LV !119/6 ,9 ! +-----+ + Valve Gradients and Areas + +---------+---------+---------+ +---------+ + !Valve !Peak !Mean !Area !Index !Flow !Source ! + +---------+---------+---------+ +---------+ + Shunts Oxygen Values O2 Capacity 228.48 O2 Consumption 258.08 Condition: Ending AO Heart Rate: 87 bpm Valve Gradients and Areas + +---------+---------+---------+ +---------+ + !Valve !Peak !Mean !Area !Index !Flow !Source ! + +---------+---------+---------+ +---------+ + Shunts Oxygen Values O2 Capacity 228.48 O2 Consumption 260.43 Diagnostic Imaging: Cardiac MRI 09/09/2024 1. Normal left ventricular size with mildly reduced systolic function and mild LVH. LVEF 48%. Mild global hypokinesis. 2. Large area of subepicardial late gadolinium enhancement involving the basal to distal anterolateral and inferolateral sheffield with an additional region of mid myocardial LGE involving the distal septal/distal inferior wall. 3. Elevated T1 time relaxation time with normal T2 relaxation time in the area of LGE more consistent with scar without myocardial edema. 4. Normal right ventricular size and normal systolic function. RVEF 47%. 5. Normal atrial size. 6. Severe valvular abnormalities. Overall findings are consistent with myocarditis and subacute to chronic phase given lack of T2 elevation/myocardial edema and clinical history. Differential for etiology of myocarditis includes a radiographic, viral, Giant cell, sarcoid myocarditis. Electronically Signed in PS360 By: Luis Miguel Mackay 09/09/2024 10:40 AM EST Electronically Signed in PS360 By: Gurvinder Humphrey MD 09/09/2024 12:33 PM EST Narrative Indication: ventricular tachycardia Comparison: None. Technique: Multisequence multiplanar pre and postcontrast MRI of the chest/heart was performed. Postcontrast imaging achieved following intravenous administration of 9 mL IV Vueway. Radiologist Findings: No gross focal pulmonary consolidation. Susceptibility signal at the right anterior chest wall, corresponding to small metallic density in the right chest subcutaneous fat as seen on CT 07/22/2024. No gross pleural effusion. Visualized upper abdomen without acute abnormality. Home Stager Findings: Great vessels Aortic root: 3.1 cm Ascending aorta: 3.1 cm, Descending aorta: 2.5 cm (measured at the level of the PA bifurcation) Main pulmonary artery: 2.4 cm Pericardium: Pericardium is normal thickness and no evidence of significant pericardial effusion. Chamber morphology: Left ventricle: Normal left ventricular chamber size, mild LVH, normal wall motion, normal systolic function. LVEF 48%. IVSD 1.2 cm, LVPWD 1.0 cm, LVEDD 4.5 cm, LVESD 3.8 cm Right ventricle: Normal right ventricular chamber size. Normal wall thickness. Normal wall motion. Normal systolic function. RVEF 47%. Left atrium: Normal left atrial size. LA volume: 42 mL, LA volume index: 20 mL/sq m (normal <52 mL/sq m by Cardiac MRI) Right atrium: Normal right atrial size. RA volume: 29 mL, RA volume index: 14 mL/sq m Left ventricular measurements: End Diastolic Volume: 125 mL, End Diastolic Volume Index 60 mL/m2 End Systolic Volume: 65 mL, End-systolic volume index 31mL/m2 Stroke Volume: 60 ml, Stroke volume index 29 mL/m2 Mass.: 110 g, Mass index: 53 g/sq m Ejection fraction: 58% Right ventricular measurements: End Diastolic Volume: 102 mL, End Diastolic Volume Index 49mL/m2 End Systolic Volume: 54 mL, End-systolic volume index 26 mL/m2 Stroke Volume: 48 ml, Stroke volume index 23 mL/m2 Ejection fraction: 47% Valvular assessment/Flow analysis Aortic flow: Forward flow: 52 mL, Regurgitant flow: 4 mL, Regurgitant fraction: 7%, Qs: 3.6L/m Pulmonic flow: Forward flow: 53 mL, Regurgitant flow: 1 mL, Regurgitant fraction: 1%, Qp: 3.6L/m Qp:Qs 1.0 Aortic valve: No evidence of aortic valve stenosis. trace aortic regurgitation. Mitral valve: No evidence of mitral valve stenosis. No evidence of mitral regurgitation. Pulmonary valve: No evidence of pulmonary valve stenosis. trace pulmonary regurgitation. Tricuspid valve: No evidence of tricuspid stenosis. No evidence of tricuspid regurgitation. First pass myocardial perfusion: normal Parametric Mapping: Normal T2*relaxation time 33 ms consistent with no myocardial iron overload, normal T2 relaxation time consistent with no myocardial edema, elevated T1 relaxation time of the basal-mid lateral wall measuring 1225 ms Myocardial delayed enhancement: There is a large area of subepicardial late gadolinium enhancement involving the basal to distal anterolateral and inferolateral sheffield in a pattern consistent with myocarditis. There is additionally an punctate region of distal septal/distal inferior mid myocardial LGE. Gurvinder Humphrey MD - 09/09/2024 Indication: ventricular tachycardia Comparison: None. Radiologist Findings: No gross focal pulmonary consolidation. Susceptibility signal at the right anterior chest wall, corresponding to small metallic density in the right chest subcutaneous fat as seen on CT 07/22/2024. No gross pleural effusion. Visualized upper abdomen without acute abnormality. Home Stager Findings: Great vessels Aortic root: 3.1 cm Ascending aorta: 3.1 cm, Descending aorta: 2.5 cm (measured at the level of the PA bifurcation) Main pulmonary artery: 2.4 cm Pericardium: Pericardium is normal thickness and no evidence of significant pericardial effusion. Chamber morphology: Left ventricle: Normal left ventricular chamber size, mild LVH, normal wall motion, normal systolic function. LVEF 48%. IVSD 1.2 cm, LVPWD 1.0 cm, LVEDD 4.5 cm, LVESD 3.8 cm Right ventricle: Normal right ventricular chamber size. Normal wall thickness. Normal wall motion. Normal systolic function. RVEF 47%. Left atrium: Normal left atrial size. LA volume: 42 mL, LA volume index: 20 mL/sq m (normal <52 mL/sq m by Cardiac MRI) Right atrium: Normal right atrial size. RA volume: 29 mL, RA volume index: 14 mL/sq m Left ventricular measurements: End Diastolic Volume: 125 mL, End Diastolic Volume Index 60 mL/m2 End Systolic Volume: 65 mL, End-systolic volume index 31mL/m2 Stroke Volume: 60 ml, Stroke volume index 29 mL/m2 Mass.: 110 g, Mass index: 53 g/sq m Ejection fraction: 58% Right ventricular measurements: End Diastolic Volume: 102 mL, End Diastolic Volume Index 49mL/m2 End Systolic Volume: 54 mL, End-systolic volume index 26 mL/m2 Stroke Volume: 48 ml, Stroke volume index 23 mL/m2 Ejection fraction: 47% Valvular assessment/Flow analysis Aortic flow: Forward flow: 52 mL, Regurgitant flow: 4 mL, Regurgitant fraction: 7%, Qs: 3.6L/m Pulmonic flow: Forward flow: 53 mL, Regurgitant flow: 1 mL, Regurgitant fraction: 1%, Qp: 3.6L/m Qp:Qs 1.0 Aortic valve: No evidence of aortic valve stenosis. trace aortic regurgitation. Mitral valve: No evidence of mitral valve stenosis. No evidence of mitral regurgitation. Pulmonary valve: No evidence of pulmonary valve stenosis. trace pulmonary regurgitation. Tricuspid valve: No evidence of tricuspid stenosis. No evidence of tricuspid regurgitation. First pass myocardial perfusion: normal Parametric Mapping: Normal T2*relaxation time 33 ms consistent with no myocardial iron overload, normal T2 relaxation time consistent with no myocardial edema, elevated T1 relaxation time of the basal-mid lateral wall measuring 1225 ms Myocardial delayed enhancement: There is a large area of subepicardial late gadolinium enhancement involving the basal to distal anterolateral and inferolateral sheffield in a pattern consistent with myocarditis. There is additionally an punctate region of distal septal/distal inferior mid myocardial LGE. IMPRESSION: 1. Normal left ventricular size with mildly reduced systolic function and mild LVH. LVEF 48%. Mild global hypokinesis. 2. Large area of subepicardial late gadolinium enhancement involving the basal to distal anterolateral and inferolateral sheffield with an additional region of mid myocardial LGE involving the distal septal/distal inferior wall. 3. Elevated T1 time relaxation time with normal T2 relaxation time in the area of LGE more consistent with scar without myocardial edema. 4. Normal right ventricular size and normal systolic function. RVEF 47%. 5. Normal atrial size. 6. Severe valvular abnormalities. Overall findings are consistent with myocarditis and subacute to chronic phase given lack of T2 elevation/myocardial edema and clinical history. Differential for etiology of myocarditis includes a radiographic, viral, Giant cell, sarcoid myocarditis. Electronically Signed in PS360 By: Luis Miguel Mackay 09/09/2024 10:40 AM EST EP study 09/09/2024 done at [facility] EPS/Ablation Summary 1. Sinus rhythm without presentation on presentation to lab 2. Normal intracardiac conduction intervals 3. No evidence of dual AV kimi physiology 4. No evidence of accessory pathway 5. Noninducible forSVT arrhythmias both on/off isuprel 6. Inducible ventricular tachycardia Recommendations 1. Bedrest for 2 hours 2. Followup as directed, sooner if any groin or other issues 3. The patient proceeded onto ICD implantation Implantable Device Summary Successful implant of a dual-chamber MRI compatible ICD Successful defibrillator threshold testing Assessment and Plan: -EP study induced VT s/p dual-chamber ICD: Currently are not able to interrogate the device and will try to contact his primary waste picker Dr. Bulmaro Conway. I am told that he is enrolled in a trial and will therefore check with his primary team at [place] before I discontinue amiodarone from his regimen. - Hypertension: Continue home meds - Diabetes mellitus type 2: Continue with the plan as per primary care Aguilar Ybarra MD Cardiac Electrophysiology [facility] ORDERS ONLY Observed: 02/01/2025 12:00 AM Status: COMPLETED Source: [facility] [id number] Lupillo Wang M Date Provider Department [place] 02/01/2025 [id number], HISTORICAL CARD [facility] Family History Problem Relation Age of Onset Atrial fibrillation Mother Hypertension Mother Pancreatic cancer Father Other Sister Atrial fibrillation Brother Hypertension Brother Family Status - Relation Status Age at Mother Father Sister Brother REMINDERS Observed: 06/15/2024 9:56 AM Status: F Source: [facility] Reminders From: Jaz Polo LPN To: GSN - Clinical; Sent: 06/15/2024 09:56:25 EDT Show up: 05/04/2034 07:00:00 EDT Subject: colonoscopy recall Due Date/Time: 06/03/2034 07:00:00 EDT Reminder/Recall Patient due for screening colonoscopy 06/03/2034. PATHOLOGY REQUEST FOR LAB SMOOTH Collected: 06/03/2024 8:49 AM Status: F Source: [facility] Order Comment: PATHOLOGY GI SPECIMEN TYPE CODE TESTS RESULT OUT OF RANGE REFERENCE UNITS LAB PATH TO [facility] Pathology Request for Lab Smooth Result Comment: See report. Scanned copy available in EMR. PERFORMED BY: [place] [address] PATHOLOGIST RELIGIOUS STUDIES PROFESSOR SUNI PARSONS M.D. Performed By: #### PATH TO Kevin OSEGUERA #### [address] ALLERGIES DATE TYPE / CODE NAME / CODE REACTION SEVERITY SOURCE 02/02/2025 DRUG INGREDI/[id number](S NOMED CT) MEPERIDINE Other [facility] 08/24/2024 DRUG INGREDI/[id number](S NOMED CT) KETOROLAC Other [facility] 06/16/2019 DRUG/[id number](SNOM ED CT) HYDROCORTISONE- PRAMOXINE Rash Low [facility] 01/14/2012 DRUG INGREDI/[id number](S NOMED CT) LATEX Other~Hives~Rash [facility] 01/14/2012 DRUG INGREDI/[id number](S NOMED CT) NICKEL Other~Hives~Rash [facility] 01/14/2012 DRUG/[id number](SNOM ED CT) OXYCODONE-ACETA MINOPHEN Hives~NandV [facility] 01/14/2012 DRUG INGREDI/[id number](S NOMED CT) TRAMADOL Other [facility] DR/[id number](SNOMED CT) ketorolac [id number] [facility] DR/[id number](SNOMED CT) Demerol [id number] [facility] OT/[id number](SNOMED CT) Latex [id number] [facility] Miscellaneous Allergy/[id number](S NOMED CT) Nickel [id number] [facility] ENCOUNTERS ADMIT/DISCHARGE ACCOUNT NUMBER ADMITTING ENCOUNTER CLASS LOCATION SOURCE 02/02/2025/02/03/20 [id number] Ambulatory Building:[facility] 06/03/2024/06/03/20 24 [id number] [facility] 06/03/2024/06/03/20 24 [id number] Ambulatory CD:[id number] 7Building:CD :[id number] [facility] 05/15/2024 [id number] Ambulatory DrewkBjavier ing:RE Martel [facility] PAYERS ENCOUNTER GUARANTOR PAYER SUBSCRIBER SOURCE 02/02/2025 Primary Insurance:[facility] MIPolicy Number: [id number] mony Date:2016-08-26 LUPILLO ANGELOB: [id number] [place] [address] [facility] 06/03/2024 Primary Insurance:Self PayPolicy Number: Effective Date:2024-06-03 NOT GIVENUNK [facility] 06/03/2024 LUPILLO ANGELOB: [id number] [facility] ~~([facility] HP) Primary Insurance:AnthemPo licy Number: [id number] mony Date:[id number] [address], [place] [address]DC: LUPILLO WILLETT [facility]
== END 2025-05-26 08:47 | disposition home or self-care (01) ==
LOC: SLEEP 08:46
PROVIDERS: PCP Family Medicine; Visit Provider Psychiatry & Neurology Neurology
DX: G47.33 Obstructive sleep apnea (adult) (pediatric) (principal)

== ENCOUNTER 2025-06-04 08:58 | Outpatient (OUT) | payer BC, SELFPAY ==
--- OUTSIDE RECORDS SUMMARY | 2025-06-04 09:00 | XMS_ITS | Encounter Summary ---
Author Organization [facility] Address [address] [place] [address] Care Team Providers Care Press Reader Name Role Phone Unavailable Primary Care Provider Unavailabl e Encounter Details Date Type Department Care Team (Late st Contact Info) Description 05/19/2012 Anesthesia Historic Record [facility] Anesthesiology [address] [place] [address] 1 scan: GENERAL Social History Tobacco Use Types Packs/Day Years Used Date Smoking Tobacco: Never Assessed Sex and Gender Information Value Date Recorded Sex Assigned at Not on file Legal Sex Male 1:25 PM EST Gender Identity Not on file Sexual Orientation Not on file documented as of this encounter Plan of Treatment Not on file documented as of this encounter Visit Diagnoses Not on filedocumented in this encounter
--- OUTSIDE RECORDS SUMMARY | 2025-06-04 09:00 | XMS_ITS | Encounter Summary ---
Author Organization [facility] Address [address] [place] [address] Care Team Providers Care Weighter Name Role Phone Unavailable Primary Care Provider Unavailabl e Encounter Details Date Type Department Care Team (Late st Contact Info) Description 10/13/2012 Anesthesia Historic Record [facility] Anesthesiology [address] [place] [address] 1 scan: GENERAL Social History Tobacco Use Types Packs/Day Years Used Date Smoking Tobacco: Every Day Cigarettes 1 25 Smokeless Tobacco: Never Alcohol Use Standard Drinks/Week Comments No 0 (1 standard drink = 0.6 oz pur e alcohol) Substance Use Types Use/Week Comments No Sex and Gender Information Value Date Recorded Sex Assigned at Not on file Legal Sex Male 1:25 PM EST Gender Identity Not on file Sexual Orientation Not on file Occupation Industry Job Start Date Job End Date Not on file Not on file Not on file Not on file documented as of this encounter Plan of Treatment Not on file documented as of this encounter Visit Diagnoses Not on filedocumented in this encounter
--- OUTSIDE RECORDS SUMMARY | 2025-06-04 09:00 | XMS_ITS | Encounter Summary ---
Author Organization [facility] Address [address] [place] [address] Care Team Providers Care Fine Grader Name Role Phone Unavailable Primary Care Provider Unavailabl e Encounter Details Date Type Department Care Team (Late st Contact Info) Description 08/25/2012 Anesthesia Historic Record [facility] Anesthesiology [address] [place] [address] 1 scan: GENERAL Social History Tobacco Use [...]
--- OUTSIDE RECORDS SUMMARY | 2025-06-04 09:00 | XMS_ITS | Clinical Summary ---
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 Phone Unavailable Primary Care Provider Unavailabl e Source Comments The following information is NOT included in Care Everywhere downloads:Psychiatric notes, ECG results, Cardiac Rehab notes, Pulmonary Function notes, data from raksul (includes but not limited toPregnancy data,audiograms, eye exams, pre-surgical evaluation notes, well-child exam data).[facility] Allergies Active Allergy Reactions Criticality Noted Date Comments Latex 01/14/2012 Nickel 01/14/2012 Percocet 01/14/2012 Tramadol 01/14/2012 Medications esomeprazole (NEXIUM) 40 MG capsuleIndicati ons:Arthritis,R ight arm pain Take 1 Cap by mouth daily (30 minutes before breakfast). 60 Cap 2 01/14/2012 Active amLODIPine (NORVASC) 10 MG tabletIndicatio ns:Arthritis,Ri ght arm pain Take 1 Tab by mouth daily. 30 Tab 3 01/14/2012 Active cetirizine (ZYRTEC) 10 MG tabletIndicatio ns:Arthritis,Ri ght arm pain Take 1 Tab by mouth daily. 30 Tab 3 01/14/2012 Active ibuprofen (MOTRIN) 800 MG tabletIndicatio ns:Arthritis,Ri ght arm pain Take 1 Tab by mouth every 8 hours as needed for Pain. 60 Tab 2 01/14/2012 Active hydrOXYzine (VISTARIL) 50 MG capsuleIndicati ons:Rodgerenb ck's disease of adults Take 1 Cap by mouth 3 times daily as needed for Itching. 90 Cap 3 06/01/2013 Active acetaminophen-c odeine (TYLENOL/CODEIN E #3) 300-30 MG per tabletIndicatio ns:Rodgerenb ck's disease of adults,Arthriti s,Right arm pain Take 1 Tab by mouth every 4 hours as needed for Pain. 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 Social History Tobacco Use Types Packs/Day Years [...] file Not on file Not on file Last Filed Vital Signs Vital Sign Reading Time Taken Comments Blood Pressure 135/70 05/21/2013 11:30 AM EDT Pulse 99 05/21/2013 11:30 AM EDT Temperature 36.6 C (97.9 F) 05/21/2013 11:15 AM EDT diaphoresis c/o being very hot cold comprersses on Respiratory Rate 18 05/21/2013 11:3 0 AM EDT Oxygen Saturation 95% 05/21/2013 11: 30 AM EDT Inhaled Oxygen Concentration - - Weight 70.8 kg (156 lb) 05/13/2012 11:0 0 AM EDT Height 175.3 cm (5' 9 ) 05/13/2012 11:0 0 AM EDT Body Mass Index 23.04 05/13/2012 11:00 AM EDT Plan of Treatment Health Maintenance Due Date Last Done Comments Colonoscopy 1973 HIV Test 1988 Hepatitis C Antibody 1991 Tdap Booster 1991 Hepatitis A (HAV) Vaccine (optional start 19+ years) 0 1992 Hepatitis B (HBV) Vaccine (1 of 3 - 19+ 3-dose series) 1992 Cholesterol 2008 CRC Screening 2018 Cologuard (Stool DNA) 2018 FIT 2018 Pneumococcal Vaccine(s) (50+ yrs) (1 of 1 - PCV) 03/20 Shingles (RZV) Vaccine (1 of 2) 2023 COVID-19 Vaccine (1 - season) 2025 Influenza Vaccine (#1) 2025 Insurance [facility]
--- OUTSIDE RECORDS SUMMARY | 2025-06-04 09:00 | XMS_ITS | Encounter Summary ---
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
--- OUTSIDE RECORDS SUMMARY | 2025-06-04 09:03 | XMS_ITS | CCD ---
Author Organization [facility] Care Team Providers Care Neon Pumper Name Role Phone UNKNOWN, PROVIDER Admitting Unavailable CHRISTAYARLYN Referring Unavailable CHRISTAYARLYN Primary Care Unavailable UNKNOWN, PROVIDER Attending Unavailable [...] Unavailable HOY ., DR STODDARD Consulting Unavailable WEST, DR BUTCH Corcoran Consulting Unavailable Miriam Arlyn Primary Care Physician [phone] MD Lupillo Cramer Attending Provider [phone] Lupillo Cramer Attending Unavailable Lupillo Cramer Admitting Unavailable NILLupillo Brown Attending Unavailable HoyRigobertoArlyn Referring Unavailable NILL, Lupillo R Attending Unavailable NATASHA JACOBSEN Attending Unavailable Allergies Allergy Classification Reported Allergen(s) Allergy Type Date of Onset Reaction(s) Facility Acetaminophen / oxyCODONE (1 source) Acetaminophen / oxyCODONE Drug Allergy 01-06-20 [facility] Repository Latex (1 source) Latex Substance Allergy 01-06-20 [facility] NSAIDs (1 source) Ketorolac Drug Allergy 01-06-20 [facility] Rep[facility] Opioid Agonists (1 source) traMADol Drug Allergy 01-06-20 21 [facility] Repository (4 sources) Acetaminophen / oxyCODONE; Translations: [Percocet] Drug Allergy 01-14-20 12 [facility] (6 sources) Latex; Translations: [Latex] Propensity to adverse reactions to drug 01-14-20 12 Blister (morphologic abnormality) [facility] Work Phone: (6 sources) nickel sulfate; Translations: [Nickel] Drug Allergy 01-14-20 12 Blister (morphologic abnormality) [facility] (4 sources) traMADol; Translations: [TRAMADOL] Drug Allergy 01-14-20 12 [facility] (1 source) Ketorolac Drug Allergy 11-09-19 16 [facility] (1 source) Latex Drug allergy (disorder) 11-02-19 16 [facility] (1 source) Leucine Drug Allergy 11-09-19 16 [facility] (1 source) methylparaben Drug Allergy 11-18-19 16 [facility] (3 sources) Ketorolac; Translations: [ketorolac] Drug Allergy 08-24-20 24 Patient reported problems (finding) [facility] (3 sources) Meperidine; Translations: [meperidine] Drug Allergy 02-03-20 25 Patient reported problems (finding) [facility] (1 source) Acetaminophen / oxyCODONE; Translations: [OXYCODONE-ACETAMI NOPHEN] Drug Allergy 01-14-20 12 [facility] Repository (1 source) Hydrocortisone / pramoxine; Translations: [HYDROCORTISONE-MI AMOXINE] Drug Allergy 06-16-20 [facility] Repository Medications Current Medications Medication Drug Class(es) [...] disease (5 sources) Atherosclerotic heart disease of [place] coronary artery without angina pectoris; Translations: [Coronary [...] Test Name Value Interpretation Reference Range Facility 36on 02-03-2025 36 02/03/2025 Pt's nahed Gardner) called to reschedule, pt won't be able to make appt today (spouse has a dentist appt). Pt request to be scheduled latest appt; pt rescheduled on 02/16/2025 at 2:30 pm. Normal [facility] Telephoneon 02-03-2025 Telephone [id number] Virgil Wang E 1975 M Date Provider Department Center 02/03/2025 WINIFRED CORDOVA [facility] CARD [facility] Family History Problem Relation Age of Onset Atrial fibrillation Mother Hypertension Mother Pancreatic cancer Father Other Sister Atrial fibrillation Brother Hypertension Brother Family Status - Relation Status Age at Mother Father Sister Brother Reason for Visit and Comments: Appointment (Reschedule) [Other] Normal [facility] Office Visiton 02-02-2025 Follow-up visit [id number] Virgil Wang E 1975 M Date Provider Department Center 02/02/2025 Kailee-NATASHA JACOBSEN [facility] Family History Problem Relation Age of Onset Atrial fibrillation Mother Hypertension Mother Pancreatic cancer Father Other Sister Atrial fibrillation Brother Hypertension Brother Family Status - Relation Status Age at Mother Father Sister Brother Level of Service:50014 [place] OFFICE/OUTPATIENT NEW MODERATE MDM 45 MINUTES Normal [facility] Orders Onlyon 02-01-2025 Orders Only [id number] Virgil Wang ael E 1975 M Date Provider Department Center 02/01/2025 [id number], HISTORICAL CARD [facility] Family History Problem Relation Age of Onset Atrial fibrillation Mother Hypertension Mother Pancreatic cancer Father Other Sister Atrial fibrillation Brother Hypertension Brother Family Status - Relation Status Age at Mother Father Sister Brother Normal [facility] Reminderson 06-15-2024 Reminders Reminders From: Jaz Polo LPN To: N - Clinical; Sent: 06/15/2024 09:56:25 EDT Show up: 05/04/2034 07:00:00 EDT Subject: colonoscopy recall Due Date/Time: 06/03/2034 07:00:00 EDT Reminder/Recall Patient due for screening colonoscopy 06/03/2034. Normal [facility] Pathology Request for Lab Co rpon 06-03-2024 Pathology Request for Lab Alok Normal [facility] Comment on above: Order Comment: PATHO LOGY GI SPECIMEN Result Comment: See report. Scanned copy available in EMR. PERFORMED BY: [place] [address] PATHOLOGIST MEDICAL ORDERLY SUNI PARSONS M.D. Performed By: #### P ATH TO [facility] #### [address] Ambulatory Visit Summaryon 0 05-19-2024 Ambulatory Visit Summary Ambulatory Visit Summary LUPILLO WANG :1975 Visit Date:05/19/2024 Ambulatory Visit Instructions Your Care Team Attending Physician - RL JOSHI, Lupillo Ruiz Primary Care Physician - Arlyn Pineda MD Referring Physician - Arlyn Pineda MD This [...] for choosing us for your care. Normal [facility] INSULINon 12-28-2022 Insulin 45.9 uIU/mL Critically high 2.6-24.9 [facility] Comment on above: Performed By: #### I NSULIN #### [facility] [address] [place] [address] Dr. Destinee Billingsley BNPon 12-27-2022 Natriuretic peptide B (Bld) [Mass/Vol] 158.0 pg/mL Normal <=900.0 [facility] Comment on above: Performed By: #### C MP, BNP #### [facility] [address] [place] [address] Dr. Destinee Billingsley CBC AUTO DIFFon 12-27-2022 BASO # 0.1 103/ul Normal 0.0-0.[address] [facility] Comment on above: Performed By: #### C BC #### [facility] [address] [place] [address] Dr. Destinee Billingsley Basophils/100 WBC (Bld) 1.3 % Normal 0.2-2.[address] [facility] Comment on above: Performed By: #### C BC #### [facility] [address] [place] [address] Dr. Destinee Billingsley EO # 0.2 103/ul Normal 0.0-0.[address] [facility] Comment on above: Performed By: #### C BC #### [facility] [address] [place] [address] Dr. Destinee Billingsley Eosinophils/100 WBC (Bld) 3.1 % Normal 0.9-7.[address] [facility] Comment on above: Performed By: #### C BC #### [facility] [address] [place] [address] Dr. Destinee Billingsley Erythrocyte distribution width (RBC) [Ratio] 12.8 % Normal 11.0-15.[address] [facility] Comment on above: Performed By: #### C BC #### [facility] [address] [place] [address] Dr. Destinee Billingsley Hematocrit (Bld) [Volume fraction] 40.7 % Critically low 42.0-54.[address] [facility] Comment on above: Performed By: #### C BC #### [facility] [address] [place] [address] Dr. Destinee Billingsley Hemoglobin (Bld) [Mass/Vol] 14.3 g/dL Normal 14.0-18.[address] [facility] Comment on above: Performed By: #### C BC #### [facility] [address] [place] [address] Dr. Destinee Billingsley IG # 0.04 10e3/ul Critically high 0.00-0.03 [facility] Comment on above: Performed By: #### C BC #### [facility] [address] [place] [address] Dr. Destinee Billingsley IG % 0.5 % Normal 0.0-0.[address] [facility] Comment on above: Performed By: #### C BC #### [facility] [address] [place] [address] Dr. Destinee Billingsley LYMPH # 1.7 103/ul Normal 1.2-3.[address] [facility] Comment on above: Performed By: #### C BC #### [facility] [address] [place] [address] Dr. Destinee Billingsley Lymphocytes/100 WBC (Bld) 22.3 % Normal 20.5-60.[address] [facility] Comment on above: Performed By: #### C BC #### [facility] [address] [place] [address] Dr. Destinee Billingsley MANUAL DIFF REQ NO Normal [facility] Comment on above: Performed By: #### C BC #### [facility] [address] [place] [address] Dr. Destinee Billingsley MCH (RBC) [Entitic mass] 32.6 pg Normal 25.9-34.[address] [facility] Comment on above: Performed By: #### C BC #### [facility] [address] [place] [address] Dr. Destinee Billingsley MCHC (RBC) [Mass/Vol] 35.1 g/dL Normal 29.9-35.[address] [facility] Comment on above: Performed By: #### C BC #### [facility] [address] [place] [address] Dr. Destinee Billingsley MCV (RBC) [Entitic vol] 92.9 fL Normal 80.0-94.[address] [facility] Comment on above: Performed By: #### C BC #### [facility] [address] [place] [address] Dr. Destinee Billingsley MONO # 0.9 103/ul Critically high 0.3-0.8 [facility] Comment on above: Performed By: #### C BC #### [facility] [address] [place] [address] Dr. Destinee Billingsley Monocytes/100 WBC (Bld) 11.1 % Normal 1.7-12.[address] [facility] Comment on above: Performed By: #### C BC #### [facility] [address] [place] [address] Dr. Destinee Billingsley NEUT # 4.7 103/ul Normal 1.4-6.[address] [facility] Comment on above: Performed By: #### C BC #### [facility] [address] [address] [address] Destinee Billingsley Neutrophils/100 WBC (Bld) 61.7 % Normal 43.0-75.[address] [facility] Comment on above: Performed By: #### C BC #### [facility] [address] [address] [address] Destinee Billingsley Platelet mean volume (Bld) [Entitic vol] 9.7 fL Normal 9.5-13.[address] [facility] Comment on above: Performed By: #### C BC #### [facility] [address] [place] [address] Dr. Destinee Billingsley PLT 259 103/ul Normal 150-[address] [facility] Comment on above: Performed By: #### C BC #### [facility] [address] [place] [address] Dr. Destinee Billingsley RBC 4.38 106/ul Critically low 4.70-6.10 [facility] Comment on above: Performed By: #### C BC #### [facility] [address] [place] [address] Dr. Destinee Billingsley WBC 7.7 103/ul Normal 4.0-11.0 [facility] Comment on above: Performed By: #### C BC #### [facility] [address] [place] [address] Dr. Destinee Billingsley FREE THYROXINE INDEX T7on FTI 2.40 Normal 1.30-4.50 [facility] Comment on above: Performed By: #### C MP, BNP #### [facility] [address] [place] [address] Dr. Destinee Billingsley T3U 32.0 % Critically low 33.0-40.0 [facility] Comment on above: Performed By: #### C MP, BNP #### [facility] [address] [place] [address] Dr. Destinee Billingsley T4 [Mass/Vol] 7.50 ug/dL Normal 4.50-12.10 [facility] Comment on above: Performed By: #### C MP, BNP #### [facility] [address] [address] [address] Destinee Billingsley GLYCOHEMOGLOBIN A1Con 2022 ADA RECOMMENDATION SEE BELOW Normal [facility] Comment on above: Result Comment: ADA RECOMMENDED LIMIT 4.0 - 6.0 ADA THERAPEUTIC TARGET < 7.0 ACTION SUGGESTED > 7.0 Performed By: #### A 1C #### [facility] [address] [address] [address] Destinee Billingsley Glucose [Mass/Vol] 148 mg/dL Critically high 74-106 T [facility] Comment on above: Performed By: #### A 1C #### [facility] [address] [place] [address] Dr. Destinee Billingsley Performed By: #### C MP, BNP #### [facility] [address] [place] [address] Dr. Destinee Billingsley HbA1c (Bld) [Mass fraction] 6.8 % Critically high 4.5-6.[address] [facility] Comment on above: Performed By: #### A 1C #### [facility] [address] [place] [address] Dr. Destinee Billingsley IRONon 12-27-2022 Iron [Mass/Vol] 90.0 ug/dL Normal 65.0-175.0 [facility] Comment on above: Performed By: #### I EMMA VITAD #### [facility] [address] [place] [address] Dr. Destinee Billingsley MAGNESIUMon 12-27-2022 Magnesium [Mass/Vol] 1.5 mg/dL Critically low 1.8-2.[address] [facility] Comment on above: Performed By: #### C MP, BNP #### [facility] [address] [place] [address] Dr. Destinee Billingsley PROF 14(COMP METB)on 023 Albumin [Mass/Vol] 3.4 g/dL Normal 3.4-5.0 [facility] Comment on above: Performed By: #### C MP, BNP #### [facility] [address] [place] [address] Dr. Destinee Billingsley Albumin/Globulin [Mass ratio] 1.0 {ratio} Normal [facility] Comment on above: Performed By: #### C MP, BNP #### [facility] [address] [address] [address] Destinee Billingsley ALP [Catalytic activity/Vol] 86 U/L Normal 46-[address] [facility] Comment on above: Performed By: #### C MP, BNP #### [facility] [address] [place] [address] Dr. Destinee Billingsley ALT [Catalytic activity/Vol] 61 U/L Normal 16-[address] [facility] Comment on above: Performed By: #### C MP, BNP #### [facility] [address] [place] [address] Dr. Destinee Billingsley Anion gap [Moles/Vol] 13.5 mmol/L Normal [facility] Comment on above: Performed By: #### C MP, BNP #### [facility] [address] [place] [address] Dr. Destinee Billingsley AST [Catalytic activity/Vol] 41 U/L Critically high 15-[address] [facility] Comment on above: Performed By: #### C MP, BNP #### [facility] [address] [place] [address] Dr. Destinee Billingsley Bilirubin [Mass/Vol] 0.6 mg/dL Normal 0.2-1.[address] [facility] Comment on above: Performed By: #### C MP, BNP #### [facility] [address] [place] [address] Dr. Destinee Billingsley Calcium [Mass/Vol] 8.9 mg/dL Normal 8.5-10.1 [facility] Comment on above: Performed By: #### C MP, BNP #### [facility] [address] [place] [address] Dr. Destinee Billingsley Chloride [Moles/Vol] 104 mmol/L Normal 98-107 [facility] Comment on above: Performed By: #### C MP, BNP #### [facility] [address] [address] [address] Destinee Billingsley CO2 [Moles/Vol] 24.6 mmol/L Normal 21.0-32.0 [facility] Comment on above: Performed By: #### C MP, BNP #### [facility] [address] [place] [address] Dr. Destinee Billingsley Creatinine [Mass/Vol] 0.76 mg/dL Normal 0.70-1.30 [facility] Comment on above: Performed By: #### C MP, BNP #### [facility] [address] [place] [address] Dr. Destinee Billingsley EGFR-AF [place] >60 Normal >=60 [facility] Comment on above: Performed By: #### C MP, BNP #### [facility] [address] [place] [address] Dr. Destinee Billingsley EGFR-NON AF [place] >60 Normal >=[address] [facility] Comment on above: Performed By: #### C MP, BNP #### [facility] [address] [place] [address] Dr. Destinee Billingsley Globulin (S) [Mass/Vol] 3.4 g/dL Normal [facility] Comment on above: Performed By: #### C MP, BNP #### [facility] [address] [place] [address] Dr. Destinee Billingsley Potassium [Moles/Vol] 4.1 mmol/L Normal 3.5-5.1 [facility] Comment on above: Performed By: #### C MP, BNP #### [facility] [address] [place] [address] Dr. Destinee Billingsley Protein [Mass/Vol] 6.8 g/dL Normal 6.4-8.2 [facility] Comment on above: Performed By: #### C MP, BNP #### [facility] [address] [place] [address] Dr. Destinee Billingsley Sodium [Moles/Vol] 138 mmol/L Normal 136-145 [facility] Comment on above: Performed By: #### C MP, BNP #### [facility] [address] [place] [address] Dr. Destinee Billingsley Urea nitrogen [Mass/Vol] 13.0 mg/dL Normal 7.0-18.[address] [facility] Comment on above: Performed By: #### C JOAN, BNP #### [facility] [address] [place] [address] Dr. Destinee Billingsley Urea nitrogen/Creatinin e [Mass ratio] 17.1 mg/mg Normal [facility] Comment on above: Performed By: #### C MP, BNP #### [facility] [address] [place] [address] Dr. Destinee Billingsley TSHon 12-27-2022 TSH 1.711 uIU/mL Normal 0.358-3.740 [facility] Comment on above: Performed By: #### C JOAN, BNP #### [facility] [address] [place] [address] Dr. Destinee Billingsley VITAMIN D 25 OHon 12-27-2022 VIT D 25-OH 69.9 ng/mL Normal [facility] Comment on above: Performed By: #### I EMMA VITAD #### [facility] [address] [place] [address] Dr. Destinee Billingsley VIT D RANGES SEE BELOW Normal [facility] Comment on above: Result Comment: <20 ng/mL Vit D deficient 20 - <30 ng/mL Vit D insufficient 30 - 100 ng/mL Vit D sufficient >100 ng/mL Potential Toxicity Performed By: #### I EMMA VITAD #### [facility] [address] [place] [address] Dr. Destinee Billingsley INSULINon 05-05-2022 Insulin 46.3 uIU/mL Critically high 2.6-24.9 [facility] Comment on above: Performed By: #### C MP, BNP #### [facility] [address] [place] [address] Dr. Destinee Billingsley TESTOSTERONE, TOTALon 2021 Testosterone [Mass/Vol] 782 ng/dL Normal 264-[address] [facility] Comment on above: Result Comment: Adul t male reference interval is based on a population of healthy nonobese males (BMI <30) between 19 and 39 years old. et. Porfirioal. JCEM 2017,102;8735-9431. PMID: [id number]. Performed By: #### C MP, BNP #### [facility] [address] [place] [address] Dr. Destinee Billingsley CBC AUTO DIFFon 05-04-2022 BASO # 0.1 103/ul Normal 0.0-0.[address] [facility] Comment on above: Performed By: #### C BC #### [facility] [address] [place] [address] Dr. Destinee Billingsley Basophils/100 WBC (Bld) 1.9 % Normal 0.2-2.0 [facility] Comment on above: Performed By: #### C BC #### [facility] [address] [place] [address] Dr. Destinee Billingsley EO # 0.2 103/ul Normal 0.0-0.[address] [facility] Comment on above: Performed By: #### C BC #### [facility] [address] [place] [address] Dr. Destinee Billingsley Eosinophils/100 WBC (Bld) 3.3 % Normal 0.9-7.0 [facility] Comment on above: Performed By: #### C BC #### [facility] [address] [place] [address] Dr. Destinee Billingsley Erythrocyte distribution width (RBC) [Ratio] 12.2 % Normal 11.0-15.0 [facility] Comment on above: Performed By: #### C BC #### [facility] [address] [place] [address] Dr. Destinee Billingsley Hematocrit (Bld) [Volume fraction] 42.8 % Normal 42.0-54.0 [facility] Comment on above: Performed By: #### C BC #### [facility] [address] [place] [address] Dr. Destinee Billingsley Hemoglobin (Bld) [Mass/Vol] 14.6 g/dL Normal 14.0-18.[address] [facility] Comment on above: Performed By: #### C BC #### [facility] [address] [place] [address] Dr. Destinee Billingsley IG # 0.02 10e3/ul Normal 0.00-0.[address] [facility] Comment on above: Performed By: #### C BC #### [facility] [address] [place] [address] Dr. Destinee Billingsley IG % 0.3 % Normal 0.0-0.[address] [facility] Comment on above: Performed By: #### C BC #### [facility] [address] [place] [address] Dr. Destinee Billingsley LYMPH # 1.7 103/ul Normal 1.2-3.[address] [facility] Comment on above: Performed By: #### C BC #### [facility] [address] [place] [address] Dr. Destinee Billingsley Lymphocytes/100 WBC (Bld) 26.4 % Normal 20.5-60.[address] [facility] Comment on above: Performed By: #### C BC #### [facility] [address] [place] [address] Dr. Destinee Billingsley MANUAL DIFF REQ NO Normal [facility] Comment on above: Performed By: #### C BC #### [facility] [address] [place] [address] Dr. Destinee Billingsley MCH (RBC) [Entitic mass] 32.4 pg Normal 25.9-34.[address] [facility] Comment on above: Performed By: #### C BC #### [facility] [address] [place] [address] Dr. Destinee Billingsley MCHC (RBC) [Mass/Vol] 34.1 g/dL Normal 29.9-35.2 [facility] Comment on above: Performed By: #### C BC #### [facility] [address] [place] [address] Dr. Destinee Billingsley MCV (RBC) [Entitic vol] 94.9 fL Critically high 80.0-94.[address] [facility] Comment on above: Performed By: #### C BC #### [facility] [address] [place] [address] Dr. Destinee Billingsley MONO # 0.7 103/ul Normal 0.3-0.[address] [facility] Comment on above: Performed By: #### C BC #### [facility] [address] [place] [address] Dr. Destinee Billingsley Monocytes/100 WBC (Bld) 10.4 % Normal 1.7-12.[address] [facility] Comment on above: Performed By: #### C BC #### [facility] [address] [place] [address] Dr. Destinee Billingsley NEUT # 3.6 103/ul Normal 1.4-6.[address] [facility] Comment on above: Performed By: #### C BC #### [facility] [address] [place] [address] Dr. Destinee Billingsley Neutrophils/100 WBC (Bld) 57.7 % Normal 43.0-75.[address] [facility] Comment on above: Performed By: #### C BC #### [facility] [address] [place] [address] Dr. Destinee Billingsley Platelet mean volume (Bld) [Entitic vol] 10.2 fL Normal 9.5-13.[address] [facility] Comment on above: Performed By: #### C BC #### [facility] [address] [place] [address] Dr. Destinee Billingsley PLT 253 103/ul Normal 150-[address] [facility] Comment on above: Performed By: #### C BC #### [facility] [address] [place] [address] Dr. Destinee Billingsley RBC 4.51 106/ul Critically low 4.70-6.10 [facility] Comment on above: Performed By: #### C BC #### [facility] [address] [place] [address] Dr. Destinee Billingsley WBC 6.3 103/ul Normal 4.0-11.[address] [facility] Comment on above: Performed By: #### C BC #### [facility] [address] [place] [address] Dr. Destinee Billingsley GLYCOHEMOGLOBIN A1Con 2021 ADA RECOMMENDATION SEE BELOW Normal [facility] Comment on above: Result Comment: ADA RECOMMENDED LIMIT 4.0 - 6.0 ADA THERAPEUTIC TARGET < 7.0 ACTION SUGGESTED > 7.0 Performed By: #### A 1C #### [facility] [address] [place] [address] Dr. Destinee Billingsley Glucose [Mass/Vol] 131 mg/dL Normal [facility] Comment on above: Performed By: #### A 1C #### [facility] [address] [place] [address] Dr. Destinee Billingsley HbA1c (Bld) [Mass fraction] 6.2 % Normal 4.5-6.[address] [facility] Comment on above: Performed By: #### A 1C #### [facility] [address] [place] [address] Dr. Destinee Billingsley LIPID PROFILEon 05-04-2022 CHOL-HDL RATIO NORM SEE BELOW Normal [facility] Comment on above: Result Comment: 3.3 - 4.4 LOW RISK 4.4 - 7.1 AVERAGE RISK 7.1 - 11.0 MODERATE RISK >11.0 HIGH RISK Performed By: #### C MP, BNP #### [facility] [address] [place] [address] Dr. Destinee Billingsley Cholesterol [Mass/Vol] 130 mg/dL Normal <=[address] [facility] Comment on above: Performed By: #### C MP, BNP #### [facility] [address] [place] [address] Dr. Destinee Billingsley Cholesterol in HDL [Mass/Vol] 36 mg/dL Critically low 40-[address] [facility] Comment on above: Performed By: #### C MP, BNP #### [facility] [address] [place] [address] Dr. Destinee Billingsley Cholesterol in LDL [Mass/Vol] 68.2 mg/dL Normal [facility] Comment on above: Performed By: #### C MP, BNP #### [facility] [address] [place] [address] Dr. Destinee Billingsley Cholesterol.total/ Cholesterol in HDL [Mass ratio] 3.6 {ratio} Normal [facility] Comment on above: Performed By: #### C MP, BNP #### [facility] [address] [place] [address] Dr. Destinee Billingsley HDL NORMAL > or = 60 mg/dl - LO W CARDIOVASCULAR RISK <40 mg/dl - HIGH CARDIOVASCULAR RISK Normal [facility] Comment on above: Performed By: #### C MP, BNP #### [facility] [address] [place] [address] Dr. Destinee Billingsley LDL CALC NORMAL SEE BELOW Normal [facility] Comment on above: Result Comment: <100 mg/dl OPTIMAL 100 - 129 mg/dl NEAR OR ABOVE OPTIMAL 130 - 159 mg/dl BORDERLINE HIGH 160 - 189 mg/dl HIGH >190 mg/dl VERY HIGH Performed By: #### C MP, BNP #### [facility] [address] [place] [address] Dr. Destinee Billingsley Triglyceride [Mass/Vol] 129 mg/dL Normal <=[address] [facility] Comment on above: Performed By: #### C MP, BNP #### [facility] [address] [place] [address] Dr. Destinee Billingsley VLDL CALC 25.8 mg/dL Normal [facility] Comment on above: Performed By: #### C MP, BNP #### [facility] [address] [place] [address] Dr. Destinee Billingsley PROF 14(COMP METB)on 022 Albumin [Mass/Vol] 3.6 g/dL Normal 3.4-5.0 [facility] Comment on above: Performed By: #### C MP, BNP #### [facility] [address] [place] [address] Dr. Destinee Billingsley Albumin/Globulin [Mass ratio] 1.2 {ratio} Normal [facility] Comment on above: Performed By: #### C MP, BNP #### [facility] [address] [place] [address] Dr. Destinee Billingsley ALP [Catalytic activity/Vol] 87 U/L Normal 46-[address] [facility] Comment on above: Performed By: #### C MP, BNP #### [facility] [address] [place] [address] Dr. Destinee Billingsley ALT [Catalytic activity/Vol] 86 U/L Critically high 16-[address] [facility] Comment on above: Performed By: #### C MP, BNP #### [facility] [address] [place] [address] Dr. Destinee Billingsley Anion gap [Moles/Vol] 13.1 mmol/L Normal [facility] Comment on above: Performed By: #### C MP, BNP #### [facility] [address] [place] [address] Dr. Destinee Billingsley AST [Catalytic activity/Vol] 44 U/L Critically high 15-[address] [facility] Comment on above: Performed By: #### C MP, BNP #### [facility] [address] [place] [address] Dr. Destinee Billingsley Bilirubin [Mass/Vol] 0.8 mg/dL Normal 0.2-1.[address] [facility] Comment on above: Performed By: #### C MP, BNP #### [facility] [address] [place] [address] Dr. Destinee Billingsley Calcium [Mass/Vol] 9.1 mg/dL Normal 8.5-10.1 [facility] Comment on above: Performed By: #### C MP, BNP #### [facility] [address] [place] [address] Dr. Destinee Billingsley Chloride [Moles/Vol] 104 mmol/L Normal 98-[address] [facility] Comment on above: Performed By: #### C MP, BNP #### [facility] [address] [place] [address] Dr. Destinee Billingsley CO2 [Moles/Vol] 28.1 mmol/L Normal 21.0-32.0 [facility] Comment on above: Performed By: #### C MP, BNP #### [facility] [address] [place] [address] Dr. Destinee Billingsley Creatinine [Mass/Vol] 0.91 mg/dL Normal 0.70-1.[address] [facility] Comment on above: Performed By: #### C MP, BNP #### [facility] [address] [place] [address] Dr. Destinee Billingsley EGFR-AF [place] >60 Normal >=60 [facility] Comment on above: Performed By: #### C MP, BNP #### [facility] [address] [place] [address] Dr. Destinee Billingsley EGFR-NON AF [place] >60 Normal >=[address] [facility] Comment on above: Performed By: #### C MP, BNP #### [facility] [address] [place] [address] Dr. Destinee Billingsley Globulin (S) [Mass/Vol] 2.9 g/dL Normal [facility] Comment on above: Performed By: #### C MP, BNP #### [facility] [address] [place] [address] Dr. Destinee Billingsley Glucose [Mass/Vol] 138 mg/dL Critically high 74-106 [facility] Comment on above: Performed By: #### C MP, BNP #### [facility] [address] [place] [address] Dr. Destinee Billingsley Potassium [Moles/Vol] 4.2 mmol/L Normal 3.5-5.[address] [facility] Comment on above: Performed By: #### C MP, BNP #### [facility] [address] [place] [address] Dr. Destinee Billingsley Protein [Mass/Vol] 6.5 g/dL Normal 6.4-8.2 [facility] Comment on above: Performed By: #### C MP, BNP #### [facility] [address] [place] [address] Dr. Destinee Billingsley Sodium [Moles/Vol] 141 mmol/L Normal 136-145 [facility] Comment on above: Performed By: #### C MP, BNP #### [facility] [address] [place] [address] Dr. Destinee Billingsley Urea nitrogen [Mass/Vol] 7.0 mg/dL Normal 7.0-18.[address] [facility] Comment on above: Performed By: #### C MP, BNP #### [facility] [address] [place] [address] Dr. Destinee Billingsley Urea nitrogen/Creatinin e [Mass ratio] 7.7 mg/mg Normal [facility] Comment on above: Performed By: #### C MP, BNP #### [facility] [address] [place] [address] Dr. Destinee Billingsley URIC ACID SERUMon 05-04-2022 Urate [Mass/Vol] 8.7 mg/dL Critically high 3.5-7.[address] [facility] Comment on above: Performed By: #### C MP, BNP #### [facility] [address] [place] [address] Dr. Destinee Billingsley CA 19-9on 03-15-2022 CA 19-9 6 U/mL Normal 0-[address] [facility] Comment on above: Result Comment: [facility] Electrochemiluminescence Immunoassay (ECLIA) . Values obtained with different assay methods or kits cannot be used interchangeably. Results cannot be interpreted as absolute evidence of the presence or absence of malignant disease. Performed By: #### C MP, BNP #### [facility] [address] [place] [address] Dr. Destinee Billingsley H PYLORI ANTIBODY IGGon 02-24 H. PYLORI IGG ABS 0.32 Index Value Normal 0.00-0.79 [facility] Comment on above: Result Comment: Nega tive <0.80 Equivocal 0.80 - 0.89 Positive >0.89 Performed By: #### C MP, BNP #### [facility] [address] [place] [address] Dr. Destinee Billingsley AMMONIAon 03-14-2022 Ammonia (P) [Moles/Vol] 20 umol/L Normal 11-[address] [facility] Comment on above: Performed By: #### A MM #### [facility] [address] [place] [address] Dr. Destinee Billingsley AMYLASEon 03-14-2022 Amylase [Catalytic activity/Vol] 37 U/L Normal 25-[address] [facility] Comment on above: Result Comment: DISR EGARD VALUE / CALIBRATION NOT COMPLETED FOR THIS TEST Performed By: #### C MP, BNP #### [facility] [address] [place] [address] Dr. Destinee Billingsley LIPASEon 03-14-2022 Lipase [Catalytic activity/Vol] 91.0 U/L Normal 73.0-393.[address] [facility] Comment on above: Performed By: #### C MP, BNP #### [facility] [address] [place] [address] Dr. Destinee Billingsley LYME DISEASE AB EIA W REFLEX on 03-14-2022 Lyme Total Antibody,EIA Negative Normal Negative [facility] Comment on above: Result Comment: Lyme Antibody Negative No laboratory evidence of infection with B. burgdorferi (Lyme disease). Negative results may occur in patients recently infected (greater than or equal to 14 days) with B. burgdorferi. If recent infection is suspected, repeat testing on a new sample collected in 7 to 14 days is recommended. Performed By: #### C MP, BNP #### [facility] [address] [place] [address] Dr. Destinee Billingsley PROF 14(COMP METB)on 022 Albumin [Mass/Vol] 3.6 g/dL Normal 3.4-5.0 [facility] Comment on above: Performed By: #### C MP, BNP #### [facility] [address] [place] [address] Dr. Destinee Billingsley Albumin/Globulin [Mass ratio] 1.3 {ratio} Normal [facility] Comment on above: Performed By: #### C MP, BNP #### [facility] [address] [place] [address] Dr. Destinee Billingsley ALP [Catalytic activity/Vol] 75 U/L Normal 46-[address] [facility] Comment on above: Performed By: #### C MP, BNP #### [facility] [address] [place] [address] Dr. Destinee Billingsley ALT [Catalytic activity/Vol] 83 U/L Critically high 16-[address] [facility] Comment on above: Performed By: #### C MP, BNP #### [facility] [address] [place] [address] Dr. Destinee Billingsley Anion gap [Moles/Vol] 13.2 mmol/L Normal [facility] Comment on above: Performed By: #### C MP, BNP #### [facility] [address] [address] [address] Destinee Billingsley AST [Catalytic activity/Vol] 51 U/L Critically high 15-[address] [facility] Comment on above: Performed By: #### C MP, BNP #### [facility] [address] [address] [address] Destinee Billingsley Bilirubin [Mass/Vol] 1.0 mg/dL Normal 0.2-1.[address] [facility] Comment on above: Performed By: #### C MP, BNP #### [facility] [address] [address] [address] Destinee Billingsley Calcium [Mass/Vol] 8.7 mg/dL Normal 8.5-10.1 [facility] Comment on above: Performed By: #### C MP, BNP #### [facility] [address] [place] [address] Dr. Destinee Billingsley Chloride [Moles/Vol] 110 mmol/L Critically high 98-[address] [facility] Comment on above: Performed By: #### C MP, BNP #### [facility] [address] [place] [address] Dr. Destinee Billingsley CO2 [Moles/Vol] 24.3 mmol/L Normal 21.0-32.0 [facility] Comment on above: Performed By: #### C MP, BNP #### [facility] [address] [place] [address] Dr. Destinee Billingsley Creatinine [Mass/Vol] 0.89 mg/dL Normal 0.70-1.[address] [facility] Comment on above: Performed By: #### C MP, BNP #### [facility] [address] [place] [address] Dr. Destinee Billingsley EGFR-AF [place] >60 Normal >=60 [facility] Comment on above: Performed By: #### C MP, BNP #### [facility] [address] [address] [address] Destinee Billingsley EGFR-NON AF [place] >60 Normal >=[address] [facility] Comment on above: Performed By: #### C MP, BNP #### [facility] [address] [place] [address] Dr. Destinee Billingsley Globulin (S) [Mass/Vol] 2.7 g/dL Normal [facility] Comment on above: Performed By: #### C MP, BNP #### [facility] [address] [place] [address] Dr. Destinee Billingsley Glucose [Mass/Vol] 92 mg/dL Normal 74-106 [facility] Comment on above: Performed By: #### C MP, BNP #### [facility] [address] [place] [address] Dr. Destinee Billingsley Potassium [Moles/Vol] 3.5 mmol/L Normal 3.5-5.[address] [facility] Comment on above: Performed By: #### C MP, BNP #### [facility] [address] [place] [address] Dr. Destinee Billingsley Protein [Mass/Vol] 6.3 g/dL Critically low 6.4-8.2 [facility] Comment on above: Performed By: #### C MP, BNP #### [facility] [address] [place] [address] Dr. Destinee Billingsley Sodium [Moles/Vol] 144 mmol/L Normal 136-145 [facility] Comment on above: Performed By: #### C MP, BNP #### [facility] [address] [place] [address] Dr. Destinee Billingsley Urea nitrogen [Mass/Vol] 10.0 mg/dL Normal 7.0-18.[address] [facility] Comment on above: Performed By: #### C MP, BNP #### [facility] [address] [place] [address] Dr. Destinee Billingsley Urea nitrogen/Creatinin e [Mass ratio] 11.2 mg/mg Normal [facility] Comment on above: Performed By: #### C MP, BNP #### [facility] [address] [place] [address] Dr. Destinee Billingsley BNPon 03-06-2022 Natriuretic peptide B (Bld) [Mass/Vol] 272.0 pg/mL Normal <=450.[address] [facility] Comment on above: Performed By: #### C MP, BNP #### [facility] [address] [address] [address] Destinee Billingsley PROF 14(COMP METB)on 022 Albumin [Mass/Vol] 3.5 g/dL Normal 3.4-5.0 [facility] Comment on above: Performed By: #### C MP, BNP #### [facility] [address] [place] [address] Dr. Destinee Billingsley Albumin/Globulin [Mass ratio] 1.2 {ratio} Normal [facility] Comment on above: Performed By: #### C MP, BNP #### [facility] [address] [place] [address] Dr. Destinee Billingsley ALP [Catalytic activity/Vol] 81 U/L Normal 46-[address] [facility] Comment on above: Performed By: #### C MP, BNP #### [facility] [address] [place] [address] Dr. Destinee Billingsley ALT [Catalytic activity/Vol] 83 U/L Critically high 16-[address] [facility] Comment on above: Performed By: #### C MP, BNP #### [facility] [address] [place] [address] Dr. Destinee Billingsley Anion gap [Moles/Vol] 12.2 mmol/L Normal [facility] Comment on above: Performed By: #### C MP, BNP #### [facility] [address] [place] [address] Dr. Destinee Billingsley AST [Catalytic activity/Vol] 44 U/L Critically high 15-[address] [facility] Comment on above: Performed By: #### C MP, BNP #### [facility] [address] [place] [address] Dr. Destinee Billingsley Bilirubin [Mass/Vol] 0.8 mg/dL Normal 0.2-1.[address] [facility] Comment on above: Performed By: #### C MP, BNP #### [facility] [address] [place] [address] Dr. Destinee Billingsley Calcium [Mass/Vol] 8.7 mg/dL Normal 8.5-10.1 [facility] Comment on above: Performed By: #### C MP, BNP #### [facility] [address] [place] [address] Dr. Destinee Billingsley Chloride [Moles/Vol] 106 mmol/L Normal 98-[address] [facility] Comment on above: Performed By: #### C MP, BNP #### [facility] [address] [place] [address] Dr. Destinee Billingsley CO2 [Moles/Vol] 25.2 mmol/L Normal 21.0-32.0 [facility] Comment on above: Performed By: #### C MP, BNP #### [facility] [address] [place] [address] Dr. Destinee Billingsley Creatinine [Mass/Vol] 0.89 mg/dL Normal 0.70-1.[address] [facility] Comment on above: Performed By: #### C MP, BNP #### [facility] [address] [place] [address] Dr. Destinee Billingsley EGFR-AF [place] >60 Normal >=60 [facility] Comment on above: Performed By: #### C MP, BNP #### [facility] [address] [place] [address] Dr. Destinee Billingsley EGFR-NON AF [place] >60 Normal >=[address] [facility] Comment on above: Performed By: #### C MP, BNP #### [facility] [address] [place] [address] Dr. Destinee Billingsley Globulin (S) [Mass/Vol] 2.9 g/dL Normal [facility] Comment on above: Performed By: #### C MP, BNP #### [facility] [address] [place] [address] Dr. Destinee Billingsley Glucose [Mass/Vol] 120 mg/dL Critically high 74-106 [facility] Comment on above: Performed By: #### C MP, BNP #### [facility] [address] [place] [address] Dr. Destinee Billingsley Potassium [Moles/Vol] 3.4 mmol/L Critically low 3.5-5.[address] [facility] Comment on above: Performed By: #### C MP, BNP #### [facility] [address] [place] [address] Dr. Destinee Billingsley Protein [Mass/Vol] 6.4 g/dL Normal 6.4-8.2 [facility] Comment on above: Performed By: #### C MP, BNP #### [facility] [address] [place] [address] Dr. Destinee Billingsley Sodium [Moles/Vol] 140 mmol/L Normal 136-145 [facility] Comment on above: Performed By: #### C MP, BNP #### [facility] [address] [place] [address] Dr. Destinee Billingsley Urea nitrogen [Mass/Vol] 14.0 mg/dL Normal 7.0-18.[address] [facility] Comment on above: Performed By: #### C MP, BNP #### [facility] [address] [place] [address] Dr. Destinee Billingsley Urea nitrogen/Creatinin e [Mass ratio] 15.7 mg/mg Normal [facility] Comment on above: Performed By: #### C MP, BNP #### [facility] [address] [place] [address] Dr. Destinee Billingsley HEMOGLOBINon 02-08-2022 Hemoglobin (Bld) [Mass/Vol] 14.1 g/dL Normal 14.0-18.[address] [facility] Comment on above: Performed By: #### C MP, BNP #### [facility] [address] [place] [address] Dr. Destinee Billingsley XR CHEST 2 Von [...] BUTCH FUCHS Date: 2022-01-16 14:44 Normal [facility] Cardiovascular Lab Reporton 01-05-2021 Cardiovascular Lab Report [facility] Patient Name: Lupillo Wang [facility] MR #: [id number] Physician: Kiko Álvarez of [facility] Service Date: 01/05/2021 Division of Birthdate: 1975 Cardiology Room #: [facility] [place] [address] Cardiovascular Laboratory Report INDICATION: The patient is [...] signed informed consent. He was brought to brick and blocker aid labor in a fasting state. The left wrist area was prepped and draped in usual fashion. Modified Matthew's test was favorable. Access in the left radial artery was obtained using micropuncture technique. A 6-[place]ian x 11 cm hydrophilic sheath was advanced, verapamil was given through the sheath and heparin was administered intravenously. Bilateral selective coronary angiography was then performed using a 6-[place]ian JR4 diagnostic catheter for engagement of the right coronary artery following which intracoronary nitroglycerin was administered after the initial angiogram was obtained. Then the catheter was then exchanged over wire to a 6-[place]ian JL3.5 diagnostic catheter, which was used to [...] Drummond M.D. Date Trans: 01/05/2021 04:52 P/lily [id number] cc: Arlyn Pineda M.D. [address], [facility] [id number] Normal [facility] Vital Signs Date Time Vital Sign Value Performing Clinician Kat wright 05-19-2024 10:32-0400 Blood Pressure Location Lupillo CRAMER [facility] [place] 05-19-2024 10:32-0400 Diastolic blood pressure 85 mm[Hg] Lupillo CRAMER [facility] [place] 05-19-2024 10:32-0400 Heart rate 65 /min Lupillo CRAMER [facility] 05-19-2024 10:32-0400 Respiratory rate 16 /min Lupillo CRAMER [facility] 05-19-2024 10:32-0400 Systolic blood pressure 130 mm[Hg] Lupillo CRAMER [facility] Encounters Encounter Date Encounter Type Care Provider Facility Start: 02-02-2025 End: 02-02-2025 ambulatory NATASHA ANN-MARIE [facility] Start: 06-03-2024 End: 06-03-2024 ambulatory Lupillo Cramer [facility] Work Phone: Start: 06-03-2024 End: 06-03-2024 Departed Referred MD Lupillo Cramer Work Phone: [facility] Start: 06-03-2024 End: 06-03-2024 ambulatory Lupillo R RL Facility:CD:[id number] Start: 05-19-2024 End: 05-19-2024 ambulatory Lupillo R NILL Facility: [facility] Start: 05-19-2024 End: 05-19-2024 Patient encounter procedure Lupillo CRAMER [facility] Start: 05-15-2024 ambulatory Lupillo CRAMER Facility:[facility] Start: 05-14-2024 ambulatory Lupillo CRAMER Facility:[facility] Start: 12-29-2023 Letter encounter [facility] south Start: 09-22-2023 Letter encounter Nancy south Start: 12-27-2022 End: 12-28-[address] ARLYN PINEDA . Facility: Start: 12-23-2022 Letter encounter Nancy south Start: 05-11-2022 Encounter for genera l adult medical examination without abnormal findings DR ARLYN PINEDA . [facility] Start: 05-04-2022 End: 05-05-[address] ARLYN PINEDA . Facility:[facility] Start: 05-04-2022 End: 05-05-2022 Encounter for general [...] Start: 01-05-2021 End: 01-06-2021 ambulatory PROVIDER UNKNOWN Facility:[facility] Procedures Date Procedure Procedure Detail Performing Clinician Start: 05-04-[address] ZACHARY PINEDA . Comment on above: Performed By: #### C MP, BNP #### [facility] [facility] [address] [place] [address] Dr. Destinee Billingsley Arthroscopy of knee Lupillo NILL Cardiac catheterization [place] PHILLIPSL carpal tunnel Lupillo NILL Colonoscopy Lup[place] NILL Repair of musculoten dinous cuff of shoulder Lupillo CRAMER Plan of Treatment Date Care Activity Detail [...] A (HAV) Vaccine (optional start 19+ years) [facility] Start: 1991 Hepatitis C screening Hepatitis C An tibody [facility] Start: 1991 Tetanus + diphtheria + acellular pertussis vaccine (product) Tdap Booster [facility] Start: 1988 HIV screening HIV Test [facility] Start: 1973 COVID-19 Vaccine (#1) COVID-19 Vacci ne (#1) [facility] Start: 1973 Hepatitis B vaccination Hepati tis B (HBV) Vaccine (1 of 3 - 3-dose series[facility]: [facility] Screening for malign ant neoplasm of colon Colonoscopy [facility] Immunizations Immunization Date Immunization Notes Care Provider Fa cility 06-01-2022 SARS-CoV-2 (COVID-19 ) [id number] Lupillo [employer] [facility] 03-15-2022 SARS-CoV-2 mRNA (ilchgizfbsl-ozfi-metfo se) vaccine [facility] 12-24-2020 SARS-CoV-2 (COVID-19 ) mRNA BNT-162b2 vax [facility] Comment on above: Result Comment: 2023: [id number] 12-03-2020 SARS-CoV-2 (COVID-19 ) mRNA BNT-162b2 [employer] [facility] Payers Date Payer Category Payer Self-pay [id number] 2012 Unknown [id number] 1973 Unknown [id number] 2.16.8 [id number] 1973 Unknown [id number] 2.16.84 [id number] 1973 Unknown [id number] 2.16.84 [id number] 1973 Unknown [id number] 2.16.84 [id number] 1973 Unknown [id number] 2.16.84 [id number] 1973 Unknown [id number] 2.16.84 [id number] 1973 Unknown [id number] 2.16.84 [id number] 1973 Unknown [id number] 2.16.84 [id number] 1973 Unknown [id number] 2.16.8 [id number] 1973 Unknown [id number] 2.16.8 [id number] 1973 Unknown [id number] 2.16.8 [id number] 1959 Unknown [id number] Unknown O [id number] Social History Date Type Detail Facility [facility]: [facility] of tobacco use [facility] Start: 07-15-2012 Cigarettes smoked current (pack per day) - Reported 1 [facility] Start: 07-15-2012 Tobacco use and exposure Smokeless tobacco non-user [facility] Start: 05-28-2014 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) [facility] Start: 1973 Sex Assigned At Not on file [facility] Gender identity Not on file [facility] Start: 05-19-2024 Tobacco smoking status Ex-smoker (fi nding) [facility] [place] status [place] [facility] Start: [facility] Sex Assigned At Male [facility] Functional Status Date Assessment Result Facility 05-19-2024 Functional Status N/A [facility] 02-02-2025 Note Date & Type Note Facility 02-02-2025 Note [place] [facility] Consult [place] [facility] Reason for visit: [place] s/p ICD [...] The device transmission is being sent to [place] and therefore I am not able to procure any information. PMH: Past Medical History: Diagnosis Date Abnormal ECG Arrhythmia COPD (chronic obstructive pulmonary disease) (CMS/HCC) Hyperlipidemia Hypertension [place] (ventricular tachycardia) (CMS/HCC) PSH: Past Surgical History: Procedure Laterality Date CARDIAC CATHETERIZATION INSERT / REPLACE / REMOVE PACEMAKER WRIST SURGERY SH: Social Determinants of Health Tobacco Use: Medium Risk (02/02/2025) Patient History Smoking Tobacco Use: Former Smokeless Tobacco Use: Never Passive Exposure: Not on file Alcohol Use: Not At Risk (06/16/2019) Received from [facility] Frequency of Alcohol Consumption: Never Average Number of Drinks: Not on file Frequency of Binge Drinking: Not on file Financial Resource Strain: Not on file Food Insecurity: No Food Insecurity (09/08/2024) Received from [employer] Hunger Vital Sign Worried About Running Out of Food in the Last Year: Never true Ran Out of Food in the Last Year: Never true Transportation Needs: Unknown (09/08/2024) Received from [employer] PRAPARE - Transportation Lack of Transportation (Medical): Not on file Lack of Transportation (Non-Medical): No Physical Activity: Not on file Stress: Not on file Social Connections: Low Risk (05/19/2024) Received from [employer] Family and Community Support Help with Day to Day Activities: Not on file Feeling Lonely or Isolated: Not on file Intimate Partner Violence: Unknown (09/08/2024) Received from [employer] Humiliation, Afraid, Rape, and Kick questionnaire Fear of Current or Ex-Partner: No Emotionally Abused: No Physically Abused: No Sexually Abused: Not on file Depression: Unknown (05/19/2024) Received from [employer] Depression PHQ-2 Risk: Not on file Housing Stability: Unknown (09/08/2024) Received from [employer] Housing Stability Vital Sign Unable to Pay for Housing in the Last Year: Not on file Number of Times Moved in the Last Year: Not on file In the last 12 months, was there a time when you did not have a steady place to sleep or slept in a nursing home (including now)?: No Utilities: Low Risk (09/08/2024) Received from [employer] Utilities In the past 12 months has the [employer], [employer] or [employer] threatened to shut off services in your [...] Take 10 mg by mouth in the mornin (more content not included)... [facility] Clinical Note 05-19-2024 Note Date & [...] problems) Latex ( (more content not included)... [facility] Comment on above: Result Comment: Elec tronically Signed By: RL JOSHI, Lupillo Ruiz\maritza\Date and Time Signed: 05/19/24 11:14 EDT Evaluation + Plan note Note Date & Type Note Facility Evaluation + Plan note No data available for this section [facility] [place] Evaluation note Note Date & Type Note Facility Evaluation note No assessment information availa [facility] Work Phone: Hospital Discharge instructions Note Date & Type Note Facility Hospital Discharge instructions No data available for this section [facility] [place] Progress note Note Date & Type Note Facility Progress note No data available for this section [facility] [place] Summary Purpose Family History No Family History Records FoundNo Family History Records Found No data available for this section No Family History Records FoundNo Family History Records FoundNo Family History Records Found Advance Directives No Advanced Directives Records FoundNo Advanced Directives Records FoundNo Advanced Directives Records FoundNo Advanced Directives Records FoundNo Advanced Directives Records Found Additional Source Comments (unrecognized sect ion and content) No Status Records FoundNo Status Records FoundNo Status Records FoundNo Status Records FoundNo Status Records Found INFORMATION SOURCE (unrecogn ized section and content) DATE CREATED AUTHOR 01/16/2021 [facility] DATE CREATED AUTHOR AUTHOR'S ORGANIZ ATION 01/03/2023 [facility] DATE CREATED AUTHOR AUTHOR'S ORGANIZ ATION 06/13/2024 [facility] DATE CREATED AUTHOR AUTHOR'S ORGANIZ ATION 06/23/2024 [facility] DATE CREATED AUTHOR AUTHOR'S ORGANIZ ATION 03/11/2025 [facility] Patient Care team informatio n (unrecognized section and content) Team Status: Inactive Member Role Status Dates Lupillo Cramer MD FACS Attending Provider Active Start: June 03, 2024 End: June 03, 2024 Goals (unrecognized section and content) Goals may be documented in a n alternate section FOR RECORDS PERTAINING TO PATIENTS WHO ARE [...] BE BASED ON THE PRIMARY CLINICAL RECORDS. [facility] [employer] provides no warranty or guarantee of the accuracy or completeness of information in this document.
[2025-06-04 09:24] LABS: Hematocrit 47.1 % (42.0-54.0); Hemoglobin 16.1 g/dL (14.0-18.0); Immature Granulocytes Abs Auto 0.02 10^3/uL (0.00-0.03); Immature Granulocytes Pct Auto 0.3 % (0.0-0.5); Lymphocytes Absolute Auto 1.3 10^3/uL (1.2-3.8); Mean Corpuscular HGB Conc 34.2 g/dL (29.9-35.2); Mean Corpuscular Hemoglobin 31.6 pg (25.9-34.0); Mean Corpuscular Volume 92.5 fL (80.0-94.0); Platelet Count 211 10^3/uL (150-450); Red Blood Count 5.09 10^6/uL (4.70-6.10); White Blood Count 7.3 10^3/uL (4.0-11.0)
[2025-06-04 15:14] LABS: Alanine Aminotransferase 69 U/L (16-63); Albumin Globulin Ratio 1.2; Albumin Level 3.6 g/dL (3.4-5.0); Alkaline Phosphatase 100 U/L (46-116); Anion Gap 14.8; Aspartate Amino Transferase 34 U/L (15-37); Blood Urea Nitrogen 16.0 mg/dL (7.0-18.0); Calcium 9.0 mg/dL (8.5-10.1); Carbon Dioxide 26.6 mmol/L (21.0-32.0); Chloride 102 mmol/L (98-107); Cholesterol 115 mg/dL (<=200); Estimated GFR (African America >60 (>=60 mL/min/1.73m^2); Estimated GFR (Non-African Ame >60 (>=60 mL/min/1.73m^2); Free T3 2.72 pg/mL (2.18-3.98); Globulin 3.1 g/dL; Glucose 144 mg/dL (74-106); HDL Cholesterol 33 mg/dL (40-60); Potassium 4.4 mmol/L (3.5-5.1); Sodium 139 mmol/L (136-145); Thyroid Stimulating Hormone 1.351 uIU/mL (0.358-3.740); Total Protein 6.7 g/dL (6.4-8.2); Triglycerides 151 mg/dL (<=150); VLDL CHOLESTEROL 30.2 mg/dL
== END 2025-06-04 08:59 | disposition home or self-care (01) ==
LOC: LAB 08:59
PROVIDERS: PCP Family Medicine; Visit Provider Family Medicine
DX: I25.10 Atherosclerotic heart disease of native coronary artery without angina pectoris (principal); E66.3 Overweight; E78.1 Pure hyperglyceridemia; R73.09 Other abnormal glucose; R53.83 Other fatigue
CPT/HCPCS: 36415; 80053; 80061; 83036; 84436; 84443; 84481; 85025; G0103